=== PATIENT | male | born 1945 | race Caucasian/White ===

== ENCOUNTER 2018-12-24 10:02 | Emergency (ER) | payer OTHER, SELFPAY ==
[2018-12-24] VITALS (21 sets, daily range): BP systolic 124–184; BP diastolic 52–67; PULSE 73–102; RESP 12–21; TEMP 36.7–36.8; O2SAT 98–100
[2018-12-24 10:56] LABS: Abs Immature Grans 0.06 k/cumm (0.0-0.09); Absolute Basophil Count 0.04 k/cumm (0.0-0.2); Basophils % 0.2; Eosinophils % 1.4; HCT 31.2 % (40.0-50.0); HGB 10.3 g/dL (13.5-17.5); Immature Grans % 0.3; Mean Corpuscular Hemoglobin 30.1 pg (27.0-33.0); Mean Corpuscular Volume 91.2 fL (80-95); Mean Platelet Volume 9.3 fL (8.0-11.0); Monocytes % 3.9; Neutrophils % 43.2; Platelet Count 351 x1000/uL (130-400); RBC 3.42 m/cumm (4.50-6.00); RBC Distribution Width 13.2 % (11.8-14.1); White Blood Cell Count 17.54 k/cumm (4.4-10.8)
[2018-12-24 11:00] LABS: Absolute Eosinophil Count 0.25 k/cumm (0.0-0.7); Absolute Lymphocyte Count 8.95 k/cumm (1.2-3.4); Absolute Monocyte Count 0.68 k/cumm (0.11-0.7); Absolute Neutrophil Count 7.58 k/cumm (1.2-6.7)
--- NOTE | 2018-12-24 11:03 | W.ED.GENAD ---
Discharge Plan Disposition Patient Disposition: HOME Condition: Good Discharge Details Chief Complaint: GenMedical Clinical Impression: Left-sided weakness Primary Care Provider: Curtis Chavarria ED Provider: Ashish Clayton Home Meds and New Rx's Prescriptions: New aspirin 325 mg tablet 325 mg PO DAILY Qty: 90 RF: 0 Continued nitroglycerin 0.4 mg tablet, sublingual 0.4 mg SL ONCE Qty: 30 RF: 0 pen needle, diabetic [Lite Touch Insulin Pen [place]] 31 gauge x 5/16 needle .ROUTE .MEDSUPPLY Qty: 100 RF: 5 lancets [Accu-Chek Softclix Lancets] misc .ROUTE .MEDSUPPLY Qty: 200 RF: 4 FreeStyle Lite Strips strip .ROUTE .MEDSUPPLY Qty: 100 RF: 11 blood-glucose meter [FreeStyle [place] Lite] kit .ROUTE .MEDSUPPLY Qty: 1 RF: 0 atorvastatin [Lipitor] 80 MG tablet 80 mg PO DAILY RF: 0 glipizide 5 MG tablet 2.5 mg PO HS RF: 0 lisinopril 10 mg Tablet 10 mg PO DAILY RF: 0 ferrous sulfate 325 MG tablet 0.5 mg PO DAILY RF: 0 Lantus Solostar U-100 Insulin 100 unit/mL (3 mL) insulin pen 34 unit Sub-Q DAILY RF: 0 Discharge Instructions Instructions: Weakness (ED) Additional Instructions: Please take a daily 325 aspirin. Please continue taking your statin medication. Please follow-up immediately with your primary care provider for reassessment and outpatient management. [facility] records to Dr. Alan. If you notice any worsening of your symptoms, or any new symptoms such as vomiting, diarrhea, fever, chills, shortness of breath, chest pain, numbness, weakness, or fainting , please return immediately to the emergency department for reevaluation. Please follow up with your primary care provider as soon as possible for reassessment and reevaluation. As always, it was a pleasure participating in your medical care today. Referrals: Curtis Chavarria [Primary Care Provider] - Medical Decision Making This is a 73-year-old male with a past medical history of CABG, diabetes, high cholesterol and regular tobacco abuse and chronic stable CLL. Patient states that 3 days ago he had left-sided weakness for his upper and lower extremities. The symptoms have since notably resolved although he does admit to some continued very mild left-sided weakness. He denies any history of previous stroke. Of note patient was taken off his metoprolol, statin, and aspirin 1 month ago when they were trying to reassess his multiple medications. He has been restarted on his cholesterol medication 1 week ago, but his metoprolol and aspirin are still being held. Physical exam demonstrates minimal residual left-sided weakness but no other focal neurologic deficits. No evidence of dysdiadochokinesia or dysmetria. The patient ambulates well with his walker. No signs of significant neurologic deficit otherwise. EKG is relatively benign. We will get a CT scan of his head neck to evaluate for any acute fracture or trauma in respect to his fall, as well as to rule out acute stroke or bleed. I do feel that he may have certainly had a mild stroke 3 days ago, and is certainly not a candidate for TPA. Is definitely a candidate for restarting his cholesterol blood pressure and aspirin. We will reassess after workup, and most likely schedule prompt PCP follow-up. 12:29 PM Patient's laboratory workup has returned, heart normalized, white count is 17.54, which is consistent with his CLL, as well as [facility] including [facility] most recent [facility] 1 [facility] ago. Electrolytes are stable. Hemoglobin A1c is notably improved. Troponin is normal. EKG is benign for any signs of STEMI. CT scan has been read by Dr. Granado of radiology, and he states that there is no acute process or stroke, negative CT head and C-spine. The patient continues to look well, we did get him up and ambulate him around the department, and he did well with no signs of ataxia, significant weakness, or fall. I did contact his PCP Dr. Alan and spoke personally with him, we discussed the importance of outpatient follow-up promptly, including echocardiogram and potential carotid ultrasound. With a benign EKG, normal workup, and minimal left-sided weakness but no other significant focal neurologic deficits do not feel that any acute management is indicated at this time. We have recommended to the patient that he continues taking his statin drug, we will restart his aspirin, and have him follow-up closely this week. We discussed red flags which to promptly return the patient understands. Dr. Alan does agree with this plan. I have extensively reviewed the treatment plan and discharge instructions with the patient. I have addressed all patient concerns at this time. The patient was made aware of what symptoms to monitor for that would warrant a return to the emergency department. Discussed the plan with the patient, they demonstrate verbal understanding and agreement with our assessment and plan at this time. EKG 10: 18 Rate 98, intervals normal, sinus rhythm, no significant ST elevations or depressions, no T wave inversions, minimal less than 1 mm Q waves in lead III, no epsilon wave, no delta wave. Benign EKG HPI General Date/Time Provider Initiated Documentation: 12/24/18 10:34. HPI Narrative: This is a 73-year-old male with a past medical history of high cholesterol, CABG, stable CLL diabetes which was poorly controlled, who presents today after being sent for his PCP for evaluation of previous stroke. Of note the patient usually sees the [facility], and he does see Dr. Vickers of cardiology at the [facility], most recent follow-up was 1 week ago. Chip the medical practitioner from [facility] sent the patient over for evaluation after consulting with Dr. Alan. He did contact them and discussed the case with him and the patient. Per the patient and Chip 1 month ago the patient was taken off of all of his meds temporarily by Chip as he was attempting to reassess and appropriately manage the patient as he had had poorly controlled diabetes, incomplete medical compliance, and confusion with current medication regimen. New diabetes medications were started, and the patient's meds were gradually restarted as the patient improved his p.o. intake, and sugar status improved. At that time his Lipitor, aspirin and metoprolol were also paused. One week ago his statin was restarted. He did see cardiology at that time, no additional changes were made. Then 2 days ago on Saturday the patient states that he woke up and had notable left-sided weakness. 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 He states that the weakness was present in his left arm, left leg, with questionable left-sided facial droop. He states that the symptoms gradually improved throughout the day, and he does admit to some mild persistent weakness on the left, but states that it is much better than before. He did have 1 or 2 episodes of falling on Saturday and did hit the left side of his head at that time. Thankfully he was not on any blood thinners. He denies any headache, chest pain, shortness of breath, numbness, tingling, vision changes, vomiting, diarrhea, fever, chills or neck pain. He denies any history of stroke. He has no other complaints or modifying factors at this time. When I contacted the practitioners at [facility] they did request that the patient come in to get a CT scan, be evaluated for atrial fibrillation, and be assessed for symptoms. Related Data Home Medications Medication Instructions Recorded Confirmed atorvastatin [Lipitor] 80 mg PO DAILY 11/19/16 12/24/18 glipizide 2.5 mg PO HS 11/19/16 12/24/18 nitroglycerin 0.4 mg sublingual 0.4 mg SL ONCE #30 tab 09/08/18 12/24/18 tablet lancets #200 each 10/23/18 pen needle, diabetic 31 gauge x #100 each 10/31/18 10/31/1802/19 blood sugar diagnostic strips #100 each 11/07/18 blood-glucose meter kit #1 each 11/07/18 Lantus Solostar U-100 Insulin 34 unit SUB-Q DAILY 12/24/18 12/24/18 aspirin 325 mg PO DAILY #90 tab 12/24/18 ferrous sulfate 0.5 mg PO DAILY 12/24/18 12/24/18 lisinopril 10 mg PO DAILY 12/24/18 12/24/18 Previous Rx's Medication Instructions Recorded nitroglycerin 0.4 mg sublingual 0.4 mg SL ONCE #30 tab 09/08/18 tablet lancets #200 each 10/23/18 pen needle, diabetic 31 gauge x #100 each 10/31/1802/19 blood sugar diagnostic strips #100 each 11/07/18 blood-glucose meter kit #1 each 11/07/18 aspirin 325 mg PO DAILY #90 tab 12/24/18 Allergies Allergy/AdvReac Type Severity Reaction Status Date / Time No Known Allergies Allergy Unverified 09/08/18 13:26 General Stated Complaint: GenMedical CORI: 3 Review of Systems Review of Systems All systems reviewed & are unremarkable except as noted in HPI and below PFSH Social History Do you feel safe in your relationship?: Yes Exam Narrative Exam Narrative: 1.Const: Well-nourished, Well-developed, appearing stated age 2.Eyes: PERRL, no conjunctival injection, and symmetrical lids. 3.ENT: Atraumatic external nose and ears. Moist MM. Neck: Symmetric, trachea midline, No thyromegaly. 4.CVS: +S1/S2, No murmurs or gallops. Peripheral pulses 2+ and equal in all extremities. Brisk capillary refill in all extremities. 5.RESP: Unlabored respiratory effort. Clear to auscultation bilaterally. No wheezes rales or rhonchi 6.GI: Soft, Nontender/Nondistended, No hepatosplenomegaly. No guarding or rebound. 7.MSK: Normocephalic/Atraumatic, Extremities w/o deformity or ttp No cyanosis or clubbing, Normal movement of all extremities 5 out of 5 strength in all extremities both upper and lower extreme 8.Skin: Warm, Dry. No rashes or lesions. 9.Neuro: credit cashier II-XII grossly intact. Sensation grossly intact, no focal neurologic deficits. All 6 cardinal planes of vision are fully intact. No evidence of rotatory or vertical nystagmus. The patient demonstrated a normal [id number], good dexterity. There was no evidence of dysdiadochokinesia. Patient was able to ambulate without significant difficulty using his walker. There was no wide-based gait. [id number] normal on testing. Sensation was intact bilaterally. Although the patient had 5 out of 5 strength for his upper and lower extremities including plantar and dorsiflexion of his feet and dorsiflexion of his great toes bilaterally, there was some slight strength asymmetry, with minimal detectable weakness for the left upper and left lower extremities. Patient was able to verbalize butter cup with no slurring, or miss pronunciation. CN 2-12 tested and intact, patient is able to hold bilateral arms up for 5 seconds and there is no pronator drift, patient also holds legs up for 10 seconds bilaterally without any drop, sensation intact to light touch in hands and feet bilaterally. 10.Psych: (AAO) x3. Appropriate mood and affect Course Vital Signs Temperature 36.7 C 12/24/18 10:09 Pulse 101 H 12/24/18 10:09 Respiratory Rate 12 12/24/18 10:09 Blood Pressure 184/67 H 12/24/18 10:09 Temperature 36.7 C 12/24/18 10:09 Temperature Source Temporal Artery Scan 12/24/18 10:09 Pulse 101 H 12/24/18 10:09 Respiratory Rate 12 12/24/18 10:09 Blood Pressure 184/67 H 12/24/18 10:09 Blood Pressure Position Sitting 12/24/18 10:09 Oxygen Delivery Method Room Air 12/24/18 10:09 Oxygen Flow Rate 0 12/24/18 10:09 Pain Level 0 12/24/18 10:09
[2018-12-24 11:07] LABS: ALT 11 U/L (12-78); AST 10 U/L (15-37); Albumin 3.4 g/dL (3.4-5.0); Alkaline Phosphatase 129 U/L (46-116); Anion Gap 9.2 mmol/L (3-11); BUN 16 mg/dL (7-18); Bilirubin, Total 0.3 mg/dL (0.2-1.0); CO2 28.8 mmol/L (21.0-32.0); CREATININE 0.78 mg/dL (0.70-1.30); Calcium 9.2 mg/dL (8.5-10.1); Chloride 100 mmol/L (98-107); Glucose 298 mg/dL (70-100); Potassium 3.8 mmol/L (3.5-5.1); Sodium 138 mmol/L (136-145); Total Protein 7.4 g/dL (6.4-8.2)
--- NOTE | 2018-12-24 11:09 | ED.GENADUL_ITS ---
Discharge Plan Disposition Patient Disposition: HOME Condition: Good Discharge Details Chief Complaint: GenMedical Clinical Impression: Left-sided weakness Primary Care Provider: Curtis Chavarria ED Provider: Ashish Clayton Home Meds and New Rx's Prescriptions: New aspirin 325 mg tablet 325 mg PO DAILY Qty: 90 RF: 0 Continued nitroglycerin 0.4 mg tablet, sublingual 0.4 mg SL ONCE Qty: 30 RF: 0 pen needle, diabetic [Lite Touch Insulin Pen [place]] 31 gauge x 5/16 needle .ROUTE .MEDSUPPLY Qty: 100 RF: 5 lancets [Accu-Chek Softclix Lancets] misc .ROUTE .MEDSUPPLY Qty: 200 RF: 4 FreeStyle Lite Strips strip .ROUTE .MEDSUPPLY Qty: 100 RF: 11 blood-glucose meter [FreeStyle [place] Lite] kit .ROUTE .MEDSUPPLY Qty: 1 RF: 0 atorvastatin [Lipitor] 80 MG tablet 80 mg PO DAILY RF: 0 glipizide 5 MG tablet 2.5 mg PO HS RF: 0 lisinopril 10 mg Tablet 10 mg PO DAILY RF: 0 ferrous sulfate 325 MG tablet 0.5 mg PO DAILY RF: 0 Lantus Solostar U-100 Insulin 100 unit/mL (3 mL) insulin pen 34 unit Sub-Q DAILY RF: 0 Discharge Instructions Instructions: Weakness (ED) Additional Instructions: Please take a daily 325 aspirin. Please continue taking your statin medication. Please follow-up immediately with your primary care provider for reassessment and outpatient management. [facility] digital records to Dr. Alan. If you notice any worsening of your symptoms, or any new symptoms such as vomiting, diarrhea, fever, chills, shortness of breath, chest pain, numbness, weakness, or fainting , please return immediately to the emergency department for reevaluation. Please follow up with your primary care provider as soon as possible for reassessment and reevaluation. As always, it was a pleasure participating in your medical care today. Referrals: Curtis Chavarria [Primary Care Provider] - Medical Decision Making This is a 73-year-old male with a past medical history of CABG, diabetes, high cholesterol and regular tobacco abuse and chronic stable CLL. Patient states that 3 days ago he had left-sided weakness for his upper and lower extremities. The symptoms have since notably resolved although he does admit to some continued very mild left-sided weakness. He denies any history of previous stroke. Of note patient was taken off his metoprolol, statin, and aspirin 1 month ago when they were trying to reassess his multiple medications. He has been restarted on his cholesterol medication 1 week ago, but his metoprolol and aspirin are still being held. Physical exam demonstrates minimal residual left-sided weakness but no other focal neurologic deficits. No evidence of dysdiadochokinesia or dysmetria. The patient ambulates well with his walker. No signs of significant neurologic deficit otherwise. EKG is relatively benign. We will get a CT scan of his head neck to evaluate for any acute fracture or trauma in respect to his fall, as well as to rule out acute stroke or bleed. I do feel that he may have certainly had a mild stroke 3 days ago, and is certainly not a candidate for TPA. Is definitely a candidate for restarting his cholesterol blood pressure and aspirin. We will reassess after workup, and most likely schedule prompt PCP follow-up. 12:29 PM Patient's laboratory workup has returned, heart normalized, white count is 17.54, which is consistent with his CLL, as well as [facility] most [facility] 1 [facility]. Electrolytes are stable. Hemoglobin A1c is notably improved. Troponin is normal. EKG is benign for any signs of STEMI. CT scan has been read by Dr. Granado of radiology, and he states that there is no acute process or stroke, negative CT head and C-spine. The patient continues to look well, we did get him up and ambulate him around the department, and he did well with no signs of ataxia, significant weakness, or fall. I did contact his PCP Dr. Alan and spoke personally with him, we discussed the importance of outpatient follow-up promptly, including echocardiogram and potential carotid ultrasound. With a benign EKG, normal workup, and minimal left-sided weakness but no other significant focal neurologic deficits do not feel that any acute management is indicated at this time. We have recommended to the patient that he continues taking his statin drug, we will restart his aspirin, and have him follow-up closely this week. We discussed red flags which to promptly return the patient understands. Dr. Daisha kim does agree with this plan. I have extensively reviewed the treatment plan and discharge instructions with the patient. I have addressed all patient concerns at this time. The patient was made aware of what symptoms to monitor for that would warrant a return to the emergency department. Discussed the plan with the patient, they demonstrate verbal understanding and agreement with our assessment and plan at this time. EKG 10: 18 Rate 98, intervals normal, sinus rhythm, no significant ST elevations or depressions, no T wave inversions, minimal less than 1 mm Q waves in lead III, no epsilon wave, no delta wave. Benign EKG HPI General Date/Time Provider Initiated Documentation: 12/24/18 10:34 . HPI Narrative: This is a 73-year-old male with a past medical history of high cholesterol, CABG, stable CLL diabetes which was poorly controlled, who presents today after being sent for his PCP for evaluation of previous stroke. Of note the patient usually sees the [facility], and he does see Dr. Vickers of cardiology at the [facility], most recent follow-up was 1 week ago. Chip the medical practitioner from [facility] sent the patient over for evaluation after consulting with Dr. Alan. He did contact them and discussed the case with him and the patient. Per the patient and Chip 1 month ago the patient was taken off of all of his meds temporarily by Chip as he was attempting to reassess and appropriately manage the patient as he had had poorly controlled diabetes, incomplete medical compliance, and confusion with current medication regimen. New diabetes medications were started, and the patient's meds were gradually restarted as the patient improved his p.o. intake, and sugar status improved. At that time his Lipitor, aspirin and metoprolol were also paused. One week ago his statin was restarted. He did see cardiology at that time, no additional changes were made. Then 2 days ago on Saturday the patient states that he woke up and had notable left-sided weakness. 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 He states that the weakness was present in his left arm, left leg, with questionable left-sided facial droop. He states that the symptoms gradually improved throughout the day, and he does admit to some mild persistent weakness on the left, but states that it is much better than before. He did have 1 or 2 episodes of falling on Saturday and did hit the left side of his head at that time. Thankfully he was not on any blood thinners. He denies any headache, chest pain, shortness of breath, numbness, tingling, vision changes, vomiting, diarrhea, fever, chills or neck pain. He denies any history of stroke. He has no other complaints or modifying factors at this time. When I contacted the practitioners at [facility] they did request that the patient come in to get a CT scan, be evaluated for atrial fibrillation, and be assessed for symptoms. Related Data Home Medications Medication Instructions Recorded Confirmed atorvastatin [Lipitor] 80 mg PO DAILY 11/19/16 12/24/18 glipizide 2.5 mg PO HS 11/19/16 12/24/18 nitroglycerin 0.4 mg sublingual 0.4 mg SL ONCE #30 tab 09/08/18 12/24/18 tablet lancets #200 each 10/23/18 pen needle, diabetic 31 gauge x #100 each 10/31/18 10/31/1802/19 blood sugar diagnostic strips #100 each 11/07/18 blood-glucose meter kit #1 each 11/07/18 Lantus Solostar U-100 Insulin 34 unit SUB-Q DAILY 12/24/18 12/24/18 aspirin 325 mg PO DAILY #90 tab 12/24/18 ferrous sulfate 0.5 mg PO DAILY 12/24/18 12/24/18 lisinopril 10 mg PO DAILY 12/24/18 12/24/18 Previous Rx's Medication Instructions Recorded nitroglycerin 0.4 mg sublingual 0.4 mg SL ONCE #30 tab 09/08/18 tablet lancets #200 each 10/23/18 pen needle, diabetic 31 gauge x #100 each 10/31/1802/19 blood sugar diagnostic strips #100 each 11/07/18 blood-glucose meter kit #1 each 11/07/18 aspirin 325 mg PO DAILY #90 tab 12/24/18 Allergies Allergy/AdvReac Type Severity Reaction Status Date / Time No Known Allergies Allergy Unverified 09/08/18 13:26 General Stated Complaint: GenMedical CORI: 3 Review of Systems Review of Systems All systems reviewed & are unremarkable except as noted in HPI and below PFSH Social History Do you feel safe in your relationship?: Yes Exam Narrative Exam Narrative: 1.Const: Well-nourished, Well-developed, appearing stated age 2.Eyes: PERRL, no conjunctival injection, and symmetrical lids. 3.ENT: Atraumatic external nose and ears. Moist MM. Neck: Symmetric, trachea midline, No thyromegaly. 4.CVS: +S1/S2, No murmurs or gallops. Peripheral pulses 2+ and equal in all extremities. Brisk capillary refill in all extremities. 5.RESP: Unlabored respiratory effort. Clear to auscultation bilaterally. No wheezes rales or rhonchi 6.GI: Soft, Nontender/Nondistended, No hepatosplenomegaly. No guarding or rebound. 7.MSK: Normocephalic/Atraumatic, Extremities w/o deformity or ttp No cyanosis or clubbing, Normal movement of all extremities 5 out of 5 strength in all extremities both upper and lower extreme 8.Skin: Warm, Dry. No rashes or lesions. 9.Neuro: patient access registrar II-XII grossly intact. Sensation grossly intact, no focal neurologic deficits. All 6 cardinal planes of vision are fully intact. No evidence of rotatory or vertical nystagmus. The patient demonstrated a normal [id number], good dexterity. There was no evidence of dysdiadochokinesia. Patient was able to ambulate without significant difficulty using his walker. There was no wide-based gait. [id number] normal on testing. Sensation was intact bilaterally. Although the patient had 5 out of 5 strength for his upper and lower extremities including plantar and dorsiflexion of his feet and dorsiflexion of his great toes bilaterally, there was some slight strength asy mmetry, with minimal detectable weakness for the left upper and left lower extremities. Patient was able to verbalize butter cup with no slurring, or miss pronunciation. CN 2-12 tested and intact, patient is able to hold bilateral arms up for 5 seconds and there is no pronator drift, patient also holds legs up for 10 seconds bilaterally without any drop, sensation intact to light touch in hands and feet bilaterally. 10.Psych: (AAO) x3. Appropriate mood and affect Course Vital Signs Temperature 36.7 C 12/24/18 10:09 Pulse 101 H 12/24/18 10:09 Respiratory Rate 12 12/24/18 10:09 Blood Pressure 184/67 H 12/24/18 10:09 Temperature 36.7 C 12/24/18 10:09 Temperature Source Temporal Artery Scan 12/24/18 10:09 Pulse 101 H 12/24/18 10:09 Respiratory Rate 12 12/24/18 10:09 Blood Pressure 184/67 H 12/24/18 10:09 Blood Pressure Position Sitting 12/24/18 10:09 Oxygen Delivery Method Room Air 12/24/18 10:09 Oxygen Flow Rate 0 12/24/18 10:09 Pain Level 0 12/24/18 10:09
[2018-12-24 11:15] LABS: Polychromasia Present
[2018-12-24 11:17] LABS: Hemoglobin A1C 8.6 % (4.5-6.2)
[2018-12-24] MEDS: Normal Saline 1,000 ML 1000 ML IV (11:30)
--- NOTE | 2018-12-24 11:38 | DI.CT_ITS ---
SYMPTOMS/DIAGNOSIS: STROKE LIKE SYMPTOMS 3 DAYS AGO, FALL LT FACE CT BRAIN: Noncontrast examination. Comparison 08/12/17. The ventricles and sulci are consistent with the patient's age. No intracranial hemorrhage, infarct, midline shift or mass effect is identified. The ventricles are intact. The basilar cisterns are patent. The visualized paranasal sinuses are clear. The mastoid air cells are well pneumatized. The calvarium is intact. IMPRESSION: No acute intracranial process. CT SCAN OF THE CERVICAL SPINE: Multiple contiguous axial images of the cervical spine were obtained. Sagittal and coronal reformatted images were evaluated on the Siemens workstation. No acute fractures or subluxations of the cervical spine are seen. Mild to moderate degenerative changes are present throughout the cervical spine. The soft tissues are unremarkable. IMPRESSION: No acute fractures or subluxations in the cervical spine. The findings were discussed with the emergency department on the date of the examination.
== END 2018-12-24 12:50 | disposition home or self-care (01) ==
PROVIDERS: Emergency Provider Student in an Organized Health Care Education/Training Program; PCP Family Medicine
DX: G81.94 Hemiplegia, unspecified affecting left nondominant side (principal); R29.6 Repeated falls; S09.90XA Unspecified injury of head, initial encounter; W18.30XA Fall on same level, unspecified, initial encounter; E11.9 Type 2 diabetes mellitus without complications; Z79.84 Long term (current) use of oral hypoglycemic drugs
CPT/HCPCS: 36415; 80053; 93005; 96360; 99285; 70450; 72125; 83036; 85025; 93010; 99284

== ENCOUNTER 2019-01-02 01:42 | Outpatient (CLI) | payer OTHER, SELFPAY ==
--- NOTE | 2019-01-02 14:50 | DI.US_ITS ---
SYMPTOM/DIAGNOSIS: MICTURITION SYNCOPE, R55, WEAKNESS, R53.1, STROKE, APHASIA,NUMBNESS, TINGLING, DIZZINESS, IMBALANCE, CONFUSION, SMOKER, DIABETES, HYPERTENSION, H/O CA IN 2013 BILATERAL DUPLEX CAROTID ULTRASOUND: Duplex evaluation of the carotid circulation was performed according to the usual protocol. There is moderate visible atheromatous plaque in common and internal carotid arteries bilaterally. On the right, there is flow velocity elevation in the proximal internal carotid artery consistent with 50-60% luminal diameter stenosis. On the left, there is flow velocity elevation consistent with 50-60% diameter stenosis of the proximal mid and distal internal carotid artery. There is bilateral antegrade vertebral flow. IMPRESSION: Findings consistent with bilateral, 50-60% luminal diameter stenosis of the internal carotid arteries.
== END 2019-01-02 02:02 ==
PROVIDERS: PCP Family Medicine; Visit Provider Family Medicine
DX: R55 Syncope and collapse (principal); R53.1 Weakness; I69.320 Aphasia following cerebral infarction; I65.23 Occlusion and stenosis of bilateral carotid arteries
CPT/HCPCS: 93880

== ENCOUNTER 2019-01-14 00:21 | Outpatient (CLI) | payer OTHER, MEDICARE, SELFPAY ==
--- NOTE | 2019-01-14 07:30 | MERGE_ITS ---
*[facility]* *[facility]* [address] [place] [address] Date of study: 01/14/2019 Transthoracic Echocardiography M-mode, complete 2D, complete spectral Doppler, and color Doppler *STUDY CONCLUSIONS* Summary: 1. Left ventricle: The cavity size was normal. Wall thickness was increased in a pattern of mild LVH. Systolic function was normal. The estimated ejection fraction was 60-65%. Wall motion was normal; there were no regional wall motion abnormalities. Findings consistent with diastolic dysfunction. Doppler parameters are consistent with high ventricular filling pressure. Average of medial and lateral annulus E velocity: 0.083m/sec. Ratio of mitral valve peak E velocity to average of medial and lateral annulus peak E velocity: 15. 2. Aortic valve: There was mild regurgitation. 3. Mitral valve: Mildly calcified annulus. There was mild regurgitation. 4. Left atrium: The atrium was mildly to moderately dilated. Volume/bsa ES (2-p Simpsons): 39ml/m^2. 5. Right ventricle: The cavity size was normal. Wall thickness was normal. Systolic function was normal. 6. Pulmonary arteries: Pulmonary systolic pressure was increased, in the range of 40mm Hg to 45mm Hg. *PATIENT PRESENTATION* Height: 162.6cm ((64in) ) S/D Pressure: 153 / 61 Weight: 53.5kg ((117.8lb) ) BSA: 1.55m^2 Test start time: 07:35 AM. Test stop time: 08:40 AM. PERFORMING Unknown PERFORMING [facility] BILINGUAL SECRETARY Candace Lester RT (R)(CT), CS ORDERING Curtis Chavarria REFERRING Curtis Chavarria *PROCEDURE DATA* Procedure information: The patient was identified by two identifiers. This study was interpreted by [facility]. Pertinent images and digital data are archived for permanent storage and are available for subsequent review. No prior study was available for comparison. Study status: Routine. Transthoracic echocardiography. M-mode, complete 2D, complete spectral Doppler, and color Doppler. A Transthoracic Echocardiogram was performed. Scanning was performed from the parasternal, apical, subcostal, and suprasternal notch acoustic windows. Images were obtained using an [id number] cardiac ultrasound machine. Image quality was adequate. Study completion: The patient tolerated the procedure well. There were no complications. History: PMH: Fever. left sided weakness r50.9 r53.1. *CARDIAC ANATOMY* Left ventricle: The cavity size was normal. Wall thickness was increased in a pattern of mild LVH. There was a false tendon within the ventricle. Systolic function was normal. The estimated ejection fraction was 60-65%. Wall motion was normal; there were no regional wall motion abnormalities. Findings consistent with diastolic dysfunction. Doppler parameters are consistent with high ventricular filling pressure. Aortic valve: Trileaflet; mildly thickened, mildly calcified leaflets. Mobility was not restricted. Doppler: Transvalvular velocity was within the normal range. There was no stenosis. There was mild regurgitation. VTI ratio of LVOT to aortic valve: 0.5. Valve area (VTI): 1.5cm^2. Indexed valve area (VTI): 1cm^2/m^2. Peak velocity ratio of LVOT to aortic valve: 0.53. Valve area (Vmax): 1.6cm^2. Indexed valve area (Vmax): 1.1cm^2/m^2. Mean velocity ratio of LVOT to aortic valve: 0.46. Valve area (Vmean): 1.4cm^2. Indexed valve area (Vmean): 0.9cm^2/m^2. Mean gradient (S): 5.5mm Hg. Peak gradient (S): 9.9mm Hg. Aorta: Aortic root: The aortic root was normal in size. Ascending aorta: The ascending aorta was normal in size. Mitral valve: Mildly calcified annulus. Mobility was not restricted. Doppler: Transvalvular velocity was within the normal range. There was no evidence for stenosis. There was mild regurgitation. Valve area by pressure half-time: 4.6cm^2. Indexed valve area by pressure half-time: 3cm^2/m^2. Peak gradient (D): 6mm Hg. Left atrium: The atrium was mildly to moderately dilated. Right ventricle: The cavity size was normal. Wall thickness was normal. Systolic function was normal. Pulmonic valve: The pulmonary valve appears to be grossly normal. Doppler: Transvalvular velocity was within the normal range. There was no evidence for stenosis. There was no significant regurgitation. Peak gradient (S): 4.5mm Hg. Tricuspid valve: Structurally normal valve. Doppler: Transvalvular velocity was within the normal range. There was no evidence for stenosis. There was mild regurgitation. Pulmonary artery: Pulmonary systolic pressure was increased, in the range of 40mm Hg to 45mm Hg. Right atrium: The atrium was normal in size. Pericardium: There was no pericardial effusion. Systemic veins: Inferior vena cava: Well visualized. The vessel was patent and normal in size. The respirophasic diameter changes were in the normal range (greater than or equal to 50%). Baseline ECG: Normal sinus rhythm. Measurements Left ventricle Value Reference LV ID, ED, PLAX 4.7 cm 3.5 - 6.0 LV ID, ES, PLAX 3.3 cm 2.1 - 4.0 LV PW thickness, ED, PLAX 1.1 cm LV end-diastolic volume, 1-p A2C 106 ml LV ejection fraction, 1-p A2C 71 % LV end-diastolic volume, 1-p A4C 73 ml LV ejection fraction, 1-p A4C 67 % LV e', lateral 0.098 m/sec LV E/e', lateral 13 LV e', medial 0.068 m/sec LV E/e', medial 18 LV e', average 0.083 m/sec LV E/e', average 15 Ventricular septum Value Reference IVS thickness, ED, PLAX 1.3 cm LVOT Value Reference LVOT ID, A-P 2.0 cm LVOT area 3.1 cm^2 LVOT peak velocity, S 0.84 m/sec LVOT mean velocity, S 0.51 m/sec LVOT VTI, S 21.4 cm LVOT peak gradient, S 2.8 mm Hg LVOT mean gradient, S 1.3 mm Hg Stroke volume (SV), LVOT DP 66 ml Stroke index (SV/bsa), LVOT DP 43 ml/m^2 Aortic valve Value Reference Aortic valve peak velocity, S 1.6 m/sec Aortic valve mean velocity, S 1.11 m/sec Aortic valve VTI, S 43.0 cm Aortic mean gradient, S 5.5 mm Hg Aortic peak gradient, S 9.9 mm Hg VTI ratio, LVOT/AV 0.5 Aortic valve area, VTI 1.5 cm^2 Velocity ratio, peak, LVOT/AV 0.53 Aortic valve area, peak velocity 1.6 cm^2 Velocity ratio, mean, LVOT/AV 0.46 Aortic valve area, mean velocity 1.4 cm^2 Aortic valve area/bsa, mean velocity 0.9 cm^2/m^2 Aorta Value Reference Aortic root ID, ED 2.8 cm Ascending aorta ID, A-P, S 3.0 cm RVOT Value Reference RVOT VTI, S 18.8 cm Left atrium Value Reference LA ID, A-P, ES 3.4 cm LA ID/bsa, A-P 2.2 cm/m^2 <=2.2 LA area, ES, A4C 20.7 cm^2 8.8 - 23.4 LA area, ES, A2C 19 cm^2 LA volume/bsa, ES, 1-p A4C 47 ml/m^2 LA volume, ES, 2-p 61 ml LA volume/bsa, ES, 2-p 39 ml/m^2 LA/aortic root ratio 1.19 Mitral valve Value Reference Mitral E-wave peak velocity 1.23 m/sec Mitral A-wave peak velocity 0.74 m/sec Mitral deceleration time 165 ms 150 - 230 Mitral pressure half-time 48 ms Mitral peak gradient, D 6 mm Hg Mitral E/A ratio, peak 1.67 Mitral valve area, PHT, DP 4.6 cm^2 Pulmonary veins Value Reference Pulmonary vein peak velocity, S 0.61 m/sec Pulmonary vein peak velocity, D 0.96 m/sec Pulmonary vein velocity ratio, peak, 0.64 S/D Tricuspid valve Value Reference Tricuspid regurg peak velocity 3.3 m/sec Tricuspid peak RV-RA gradient 44.9 mm Hg Right atrium Value Reference RA area, ES, A4C 11.4 cm^2 8.3 - 19.5 Pulmonic valve Value Reference Pulmonic peak gradient, S 4.5 mm Hg Legend: (L) and (H) estela values outside specified reference range. I have personally reviewed the images and have reviewed and edited the reported findings. Electronically signed by Sanket English 01/14/2019 10:01
== END 2019-01-14 00:41 ==
PROVIDERS: PCP Family Medicine; Visit Provider Family Medicine
DX: R50.9 Fever, unspecified (principal); R53.1 Weakness; I50.30 Unspecified diastolic (congestive) heart failure; I08.0 Rheumatic disorders of both mitral and aortic valves
CPT/HCPCS: 93306

== ENCOUNTER 2019-01-15 01:08 | Outpatient (CLI) | payer OTHER, MEDICARE, SELFPAY ==
--- NOTE | 2019-02-03 11:07 | ZIOP_ITS ---
DATE OF DICTATION: February 03, 2019 STUDY INDICATION: Weakness. REQUESTING PROVIDER: Curtis Chavarria M.D. FINDINGS: The patient was monitored for twelve days and six hours. The predominant underlying rhythm was sinus rhythm. Average heart rate in sinus rhythm 70 bpm, range 49-118 bpm. There was rare ectopy. There was one ventricular run lasting 9 beats with an average heart rate of 131 bpm. There were six atrial runs, average heart rate 105 bpm, range 75-136 bpm. The longest episode lasted 19 beats with an average heart rate of 102 bpm. There was one episode of an idioventricular rhythm at 68 beats lasting 8 beats, occurring at 4:24 a.m. There were no pauses greater than 3 seconds. There was no higher-degree heart block. There were no patient events. FINAL INTERPRETATION: Minor atrial and ventricular arrhythmias, asymptomatic.
== END 2019-01-15 01:28 ==
PROVIDERS: PCP Family Medicine; Visit Provider Family Medicine
DX: R53.1 Weakness (principal); I49.1 Atrial premature depolarization; I49.3 Ventricular premature depolarization
CPT/HCPCS: 0296T

== ENCOUNTER 2019-01-27 14:31 | Emergency (ER) | payer OTHER, SELFPAY ==
[2019-01-27] VITALS (94 sets, daily range): BP systolic 95–146; BP diastolic 34–64; PULSE 59–78; RESP 11–36; TEMP 36.7–37.5; O2SAT 93–100
[2019-01-27 15:07] LABS: Abs Immature Grans 0.03 k/cumm (0.0-0.09); Mean Corp. HGB Concentration 33.3 g/dL (32.0-36.0); Mean Corpuscular Hemoglobin 31.9 pg (27.0-33.0); Mean Corpuscular Volume 95.7 fL (80-95); Mean Platelet Volume 9.5 fL (8.0-11.0); Platelet Count 321 x1000/uL (130-400); RBC 2.07 m/cumm (4.50-6.00); RBC Distribution Width 17.2 % (11.8-14.1); White Blood Cell Count 12.51 k/cumm (4.4-10.8)
--- NOTE | 2019-01-27 15:11 | ED.GENADUL_ITS ---
Discharge Plan Disposition Patient Disposition: AGAINST MEDICAL ADVICE Condition: Serious Discharge Details Chief Complaint: SOB Clinical Impression: Anemia, Acute GI bleeding, Breath, shortness Primary Care Provider: Curtis Chavarria ED Provider: Catie Degroot Home Meds and New Rx's Prescriptions: Continued nitroglycerin 0.4 mg tablet, sublingual 0.4 mg SL ONCE Qty: 30 RF: 0 pen needle, diabetic [Lite Touch Insulin Pen [place]] 31 gauge x 5/16 needle .ROUTE .MEDSUPPLY Qty: 100 RF: 5 lancets [Accu-Chek Softclix Lancets] misc .ROUTE .MEDSUPPLY Qty: 200 RF: 4 FreeStyle Lite Strips strip .ROUTE .MEDSUPPLY Qty: 100 RF: 11 blood-glucose meter [FreeStyle Comins Lite] kit .ROUTE .MEDSUPPLY Qty: 1 RF: 0 atorvastatin [Lipitor] 80 MG tablet 80 mg PO DAILY RF: 0 glipizide 5 mg tablet 2.5 mg PO HS PRN (Reason: t-1 1700) RF: 0 Lantus Solostar U-100 Insulin 100 unit/mL (3 mL) insulin pen 34 unit Sub-Q DAILY RF: 0 ferrous sulfate 325 mg (65 mg iron) tablet See Patient Comments PO DAILY RF: 0 Discontinued aspirin [Adult Aspirin Regimen] 81 mg tablet,delayed release (DR/EC) 81 mg PO DAILY RF: 0 No Action polyethylene glycol 3350 17 gram/dose powder 238 g PO ONCE Qty: 238 RF: 0 bisacodyl [Dulcolax (bisacodyl)] 5 mg tablet,delayed release (DR/EC) 5 mg PO ONCE Qty: 4 RF: 0 Discharge Instructions Instructions: Gastrointestinal Bleeding (ED), Dyspnea (ED), Anemia (ED) Additional Instructions: You are leaving AGAINST MEDICAL ADVICE. Going home at this time does which are at risk for your condition worsening with possible long-term effects of . Please contact her primary care tomorrow morning to schedule follow-up as soon as possible for reevaluation. Should you change your mind and wish for further care please return to the emergency department at any time. Stop taking aspirin Referrals: Curtis Chavarria [Primary Care Provider] - Discharge Data Discharge Date/Time-TO BE ENTERED AT DEPARTURE: 01/27/19 22:48 Medical Decision Making Patient is a 73 year old male, brought in via EMS after evaluation by his PCP for cc of exertional dyspnea. PCP was phoned ahead and was concerned for possible carbon monoxide poisoning. Patient has history of CAD, s/p CABG 2011, CLL not currently requiring treatment, DM, hyperlipidemia, HTN, PVD, peripheral neuropathy, CVA. Patient endorses >1 month of exertional episodes of dizziness and dyspnea. Symptpoms began after CVA which affected his left side. Has been working with PT with good improvement of his self reported hemiparesis. Reports that once he rests symptoms takes about 10 minutes to improve. Feels that symptoms improve when in fresh air. Denies and chest pain. Reports light cough over the past week. Currently asymptomatic. Was initially tachypnic at 33, he is speaking in full sentences and is now breathing at a normal rate. O2 100% with HR in the 70s. He is cachectic appearing. No edema noted. Lungs clear. Concerned for cardiac etiology vs. pulmonary source. Will also assess for anemia, diaphragmatic injury from recent CVA or other etiology. Will obtain cxr and baseline labs. Carbon monoxide 0 at time of arrival. EKG reviewed by Dr. Ricks Contacted by lab, hemoglobin 6.6. Patient has history of anemia. Hemoglobin 10.3 last month, has been a low as 7 previously. No known source of bleeding. Dneies hematuria, melena. Not anticoagulated. Patient is getting XR at this time, will discuss transfusion once he returns and preform rectal exam. No beds are available here, will plan to seek out bed at [facility] where patient [facility] receives care. Rectal exam was heme positive. I discussed the blood results with the patient. He is unaware of any rectal bleeding. No previous abdominal surgeries. He does have a external hemorrhoid that does not appear thrombosed or actively bleeding. No abdominal pain on exam. No previous familial histories of colon cancer. Patient I discussed risk/benefits of transfusion at length. He voiced understanding and wishes to proceed. With his history of cardiac disease, we will limit transfusions 1 unit at this time. Patient will need radiated blood products. [facility] typically sees the [facility], they do not currently have beds for admission. Discussed admission with patient and his . Advised he will need further evaluation for GI bleed and possibly another unit of blood. Given his cardiac history, I am hesitant to give multiple units at the same time. Dscussed this with Dr. Ricks who agreed with plan for one unit at this time with reevaluation after. Bed now available here, will consult with hospitalist, patient still awaiting blood products. Patient was evaluated by hospitalist once it was determined that a bed is now available. However, patient is going back and forth if he wants to be admitted or not. He is actually not wanting to stay even for the blood products at this point although the irradiated blood products are now available. Contacted computational theory scientist provider for his PCP. Discussed the patient wanting to elope and the findings on todays workup. They are concerned about the patient leaving, as am I, but will see the patient tomorrow and arrange for outpatient transfusion tomorrow if needed. Patient spoke with his who is able to talk him into staying for the blood products. Patient is declining admission. Discussed with him the risks associated with this and advised that he should be admitted for further observation and further treatment. After consulting with Dr. Ricks initially, I only ordered 1 unit of blood in hopes that the patient would be able to continued to be monitored particularly given his cardiac history. Patient is now agreeing to staying for blood transfusion. We discussed the risks and benefits of this at length. Patient did sign consent for transfusion. Type and screen was completed and patient will receive irradiated blood products as he has history of CLL. After receiving 1 unit of PRBCs, patient is requesting discharge. I again discussed with him that he is leaving AGAINST MEDICAL ADVICE at this time as he should continue to have monitoring, further evaluation for his anemia and likely further blood products. He again declines and is requesting discharge home. Patient is leaving AGAINST MEDICAL ADVICE. Patient has competence to make this decision. His has come to pick him up. He will contact primary care tomorrow for prompt follow-up and will seek care urgently once again with any new or worsening symptoms. I did discuss with him that he may return at any time for further care. HPI General Mode of arrival: EMS . Date/Time Provider Initiated Documentation: 01/27/19 14:35 . Limitations to Documentation: no limitations . Information obtained by: patient, family and RN notes reviewed . History of Present Illness 73 year old M presents to the emergency department with the chief complaint of SOB, described as severe, Patient started experiencing this month(s) and it has been intermittent. Immobilization improves symptom(s), Movement worsens symptoms . Patient notes cough, shortness of breath and weakness; denies chest pain, diaphoresis, fever/chills, headaches, loss of appetite, nausea/vomiting and syncope. Patient did receive the following treatments prior to arrival, none Related Data Home Medications Medication Instructions Recorded Confirmed atorvastatin [Lipitor] 80 mg PO DAILY 11/19/16 01/30/19 nitroglycerin 0.4 mg sublingual 0.4 mg SL ONCE #30 tab 09/08/18 01/30/19 tablet lancets #200 each 10/23/18 01/30/19 pen needle, diabetic 31 gauge x #100 each 10/31/18 01/30/1902/19 blood sugar diagnostic strips #100 each 11/07/18 01/30/19 blood-glucose meter kit #1 each 11/07/18 01/30/19 Lantus Solostar U-100 Insulin 34 unit SUB-Q DAILY 12/24/18 01/30/19 glipizide 5 mg tablet 2.5 mg PO HS PRN 12/30/18 01/30/19 ferrous sulfate 325 mg (65 mg See Rx Instructions PO DAILY tab 01/13/19 01/30/19 iron) tablet bisacodyl 5 mg tablet,delayed 5 mg PO ONCE #4 tab 01/30/19 01/30/19 release polyethylene glycol 3350 17 238 g PO ONCE #238 gm 01/30/19 01/30/19 gram/dose oral powder Previous Rx's Medication Instructions Recorded nitroglycerin 0.4 mg sublingual 0.4 mg SL ONCE #30 tab 09/08/18 tablet lancets #200 each 10/23/18 pen needle, diabetic 31 gauge x #100 each 10/31/1802/19 blood sugar diagnostic strips #100 each 11/07/18 blood-glucose meter kit #1 each 11/07/18 bisacodyl 5 mg tablet,delayed 5 mg PO ONCE #4 tab 01/30/19 release polyethylene glycol 3350 17 238 g PO ONCE #238 gm 01/30/19 gram/dose oral powder Allergies Allergy/AdvReac Type Severity Reaction Status Date / Time No Known Allergies Allergy Verified 01/30/19 11:07 General CORI: 3 Review of Systems Constitutional Reports as per HPI, Denies chills, Reports fatigue, Denies fever(s), Denies headache(s), Denies lethargy and Denies poor appetite Eyes Denies change in vision ENT Denies bleeding gums, Reports dizziness and Denies headache(s) Cardiovascular Reports as per HPI, Denies chest pain, Denies chest pain at rest, Denies chest pain with activity, Denies rapid heart rate, Denies radiating jaw, neck or arm pain, Denies palpitations, Reports dyspnea and Reports dyspnea on exertion Respiratory Reports as per HPI, Denies chest congestion, Denies cough, Denies hemoptysis, Denies pain on inspiration, Denies pain with cough, Reports dyspnea, Reports dyspnea on exertion and Denies wheezing Gastrointestinal Reports as per HPI, Denies abdominal pain, Denies melena, Denies change in stool character, Denies coffee ground emesis, Denies diarrhea, Denies nausea and Denies vomiting Genitourinary Denies system reviewed and no additional complaints, except as docu (denies change in urinary habits), Denies hematuria and Denies difficulty urinating Musculoskeletal Reports as per HPI and Denies back pain Integumentary/Breasts Reports as per HPI and Denies rash Neurologic Reports as per HPI, Reports dizziness and Denies headache(s) Endocrine Reports fatigue and Denies palpitations Allergic/Immunologic Denies wheezing PFSH Medical History Stroke (Chronic) Bilateral carotid artery disease (Chronic) Diabetes mellitus (Chronic) Counseling on health promotion and disease prevention (Acute) Weight loss (Acute 09/09/17) Type 2 diabetes mellitus with complication (Chronic 09/09/17) PVD (peripheral vascular disease) (Chronic 09/09/17) Iron deficiency anemia (Chronic 09/09/17) Gastrointestinal hemorrhage (Acute 09/09/17) Diabetic peripheral neuropathy (Chronic 09/09/17) CLL (chronic lymphocytic leukemia) (Chronic 09/09/17) Anemia (Acute) Fever (Acute) Micturition syncope (Chronic) Osteomyelitis of toe of left foot (Chronic) B12 deficiency (Chronic) Social History Smoking/Tobacco Use Status: Current every day Tobacco Type: cigarettes Alcohol Intake: former Drug use: Never Substance use type: does not use Do you feel safe at home: Yes Do you feel safe in your relationship?: Yes Exam Const General: cooperative, healthy appearing, comfortable, no acute distress and ill appearing chronically Nutritional Appearance: cachectic and thin Orientation: alert, awake and oriented x3 [facility] Head: normal to inspection Ears: hearing grossly normal bilaterally Mouth: moist mucous membranes Chest Chest: normal inspection of the chest, normal palpation of entire chest wall, no crepitus and other (post surgical scar noted midline) Resp Effort & Inspection: normal respiratory effort, able to speak in complete sentences and no respiratory distress Auscultation: clear to auscultation bilaterally, no rales, no rhonchi and no wheezes Cardio Rate: regular rate Rhythm: regular rhythm Heart Sounds: S1 normal and S2 normal GI Inspection: normal to inspection, no edema and non-distended Palpation: soft, no hepatosplenomegaly, not firm, no guarding, not rigid and nontender Auscultation: normal bowel sounds Skin General skin exam: no rashes or lesions noted Trauma: no lacerations or abrasions Neuro General: alert, awake and oriented x3 Cognition: normal cognition Speech: speech normal Gait: normal gait Extrem General: normal to inspection, no pedal edema, no calf tenderness and normal gait Psych Appearance: grossly normal and well kempt Mental Status: mental status grossly normal Speech and Movement: speech and movement normal
[2019-01-27 15:21] LABS: INR 0.9 (0.9-1.1); PTT Activated 20.3 sec (21.0-31.4); Prothrombin Time 9.3 sec (9.3-11.0)
[2019-01-27 15:26] LABS: HGB 6.6 g/dL (13.5-17.5)
[2019-01-27 15:27] LABS: HCT 19.8 % (40.0-50.0)
[2019-01-27 15:28] LABS: ALT 16 U/L (12-78); AST 13 U/L (15-37); Absolute Eosinophil Count 0.25 k/cumm (0.0-0.7); Absolute Monocyte Count 0.63 k/cumm (0.11-0.7); Absolute Neutrophil Count 5.63 k/cumm (1.2-6.7); Albumin 3.1 g/dL (3.4-5.0); Alkaline Phosphatase 116 U/L (46-116); Anion Gap 11.1 mmol/L (3-11); BUN 34 mg/dL (7-18); Bilirubin, Total 0.3 mg/dL (0.2-1.0); CO2 23.9 mmol/L (21.0-32.0); CREATININE 0.98 mg/dL (0.70-1.30); Chloride 102 mmol/L (98-107); Glucose 196 mg/dL (70-100); Magnesium 1.6 mg/dL (1.8-2.4); NT-proBNP 292 pg/mL; Sodium 137 mmol/L (136-145); Total Protein 6.2 g/dL (6.4-8.2); Troponin I 0.02 ng/mL (0.00-0.06)
[2019-01-27 15:29] LABS: Basophilic Stippling Present; Diff Comment Manual Differential; Hypochromasia 1+; Macrocytosis 1+
--- NOTE | 2019-01-27 15:30 | DI.RAD_ITS ---
SYMPTOMS/DIAGNOSIS: SHORTNESS OF BREATH PA AND LATERAL CHEST: Comparison is made with August,. The heart size is normal. The patient is status post CABG. An electronic device is seen over the left upper chest. There are emphysematous changes and mild pulmonary scarring. No superimposed infiltrate, effusion or pulmonary edema is seen. IMPRESSION: No acute abnormality.
[2019-01-27] MEDS: Omeprazole 20 MG CAPCR PO (20:38)
== END 2019-01-27 22:48 | disposition left against medical advice (07) ==
PROVIDERS: Emergency Provider Physician Assistant; PCP Family Medicine
DX: K92.2 Gastrointestinal hemorrhage, unspecified (principal); D64.9 Anemia, unspecified; R42 Dizziness and giddiness; R19.5 Other fecal abnormalities; R71.0 Precipitous drop in hematocrit; E11.40 Type 2 diabetes mellitus with diabetic neuropathy, unspecified; I25.10 Atherosclerotic heart disease of native coronary artery without angina pectoris; R06.09 Other forms of dyspnea; R53.83 Other fatigue; R64 Cachexia; I10 Essential (primary) hypertension; Z79.4 Long term (current) use of insulin; Z95.1 Presence of aortocoronary bypass graft; Z53.29 Procedure and treatment not carried out because of patient's decision for other reasons; Z85.6 Personal history of leukemia
CPT/HCPCS: 36415; 36430; 80053; 86850; 86900; 86901; 86920; 86945; 93005; 99285; 71046; 83735; 83880; 84484; 85025; 85610; 85730; 93010; P9016

== ENCOUNTER 2019-01-28 12:15 | Emergency (ER) | payer OTHER, SELFPAY ==
[2019-01-28 12:19] VITALS: BP 134/45; PULSE 76; RESP 20; TEMP 36.7
--- NOTE | 2019-01-28 12:39 | NUR.NOTE ---
Nursing Note: Appt made with General Surgery January 30 @ 11am. Twila Shane.
--- NOTE | 2019-01-28 12:48 | ED.GENADUL_ITS ---
Discharge Plan Disposition Patient Disposition: HOME Condition: Stable Discharge Details Chief Complaint: Recheck Clinical Impression: Gastrointestinal hemorrhage Primary Care Provider: Curtis Chavarria ED Provider: Ranjan Simeon Home Meds and New Rx's Prescriptions: No Action nitroglycerin 0.4 mg tablet, sublingual 0.4 mg SL ONCE Qty: 30 RF: 0 pen needle, diabetic [Lite Touch Insulin Pen [place]] 31 gauge x 5/16 needle .ROUTE .MEDSUPPLY Qty: 100 RF: 5 lancets [Accu-Chek Softclix Lancets] misc .ROUTE .MEDSUPPLY Qty: 200 RF: 4 FreeStyle Lite Strips strip .ROUTE .MEDSUPPLY Qty: 100 RF: 11 blood-glucose meter [FreeStyle [place] Lite] kit .ROUTE .MEDSUPPLY Qty: 1 RF: 0 atorvastatin [Lipitor] 80 MG tablet 80 mg PO DAILY RF: 0 glipizide 5 mg tablet 2.5 mg PO HS PRN (Reason: t-1 1700) RF: 0 Lantus Solostar U-100 Insulin 100 unit/mL (3 mL) insulin pen 34 unit Sub-Q DAILY RF: 0 ferrous sulfate 325 mg (65 mg iron) tablet See Patient Comments PO DAILY RF: 0 Discharge Instructions Additional Instructions: You have an appointment this SaturdayJanuary 30 with general surgery at 11am. If you feel you are becoming more short of breath or significant weakness or chest pain return to the emergency department Referrals: Donita Blankenship MD [ [facility] STAFF PHYSICIAN] - Medical Decision Making 73 yo male with multiple medical problems sent in from pcp's office after he was seen yesterday and left AMA for gi bleed. Yesterday he had weakness/shortness of breath and was found to be anemic with hgb less than 7. There were initially no beds here and he declined any transfers and was transfused 1 unit. A bed did become available here but after being in the ED 9 hours per pt he did not want to be admitted. He states he feels fine today and has no complaints. He was seen at his pcp's office today and sent here after he talked to the hospitalist about admission and felt coming to the ED would be the best route. the pt is currently very frustrated and does not want to be here. He states if he is not going to have an endoscopy or colonoscopy today which unfortantely won't be done given he is HD stable. He is declining to have any lab work or admission at this time. He has capacity to make his own decisions and understands the risks including and disability and will be leaving against my medical advise. I am recommending if he is not willing to stay that he see general surgery to schedule egd/colonoscopy which he is agreeable to. We have set him up with general surgery at 11am this Saturday. Pt understands he can return if he changes his mind at any time and also return if he is worsening. Differential Diagnosis upper vs lower gi bleed, anemia HPI General Mode of arrival: ambulatory . Date/Time Provider Initiated Documentation: 01/28/19 12:23 . Limitations to Documentation: no limitations . Information obtained by: patient . History of Present Illness 73 year old M presents to the emergency department with the chief complaint of dark stools, described as mild, Patient started experiencing this day(s) (3) and it has been intermittent. No relieving factors improve symptom(s), No exacerbating factors reported . Patient notes no other symptoms.. Patient did receive the following treatments prior to arrival, none Related Data Home Medications Medication Instructions Recorded Confirmed atorvastatin [Lipitor] 80 mg PO DAILY 11/19/16 01/28/19 nitroglycerin 0.4 mg sublingual 0.4 mg SL ONCE #30 tab 09/08/18 01/28/19 tablet lancets #200 each 10/23/18 01/28/19 pen needle, diabetic 31 gauge x #100 each 10/31/18 01/28/1916 blood sugar diagnostic strips #100 each 11/07/18 01/28/19 blood-glucose meter kit #1 each 11/07/18 01/28/19 Lantus Solostar U-100 Insulin 34 unit SUB-Q DAILY 12/24/18 01/28/19 glipizide 5 mg tablet 2.5 mg PO HS PRN 12/30/18 01/28/19 ferrous sulfate 325 mg (65 mg See Rx Instructions PO DAILY tab 01/13/19 01/28/19 iron) tablet Previous Rx's Medication Instructions Recorded nitroglycerin 0.4 mg sublingual 0.4 mg SL ONCE #30 tab 09/08/18 tablet lancets #200 each 10/23/18 pen needle, diabetic 31 gauge x #100 each 10/31/18/ blood sugar diagnostic strips #100 each 11/07/18 blood-glucose meter kit #1 each 11/07/18 Allergies Allergy/AdvReac Type Severity Reaction Status Date / Time No Known Allergies Allergy Verified 01/28/19 12:22 General Stated Complaint: Recheck CORI: 4 Review of Systems Review of Systems All systems reviewed & are unremarkable except as noted in HPI and below Constitutional Denies chills, Denies fever(s) and Denies weakness ENT Denies change in voice Cardiovascular Denies chest pain and Denies dyspnea Respiratory Denies cough and Denies dyspnea Gastrointestinal Denies abdominal pain, Denies nausea and Denies vomiting Neurologic Denies weakness PFS Social History Smoking/Tobacco Use Status: Current every day Tobacco Type: cigarettes Alcohol Intake: former Drug use: Never Substance use type: does not use Do you feel safe at home: Yes Do you feel safe in your relationship?: Yes Exam Const General: no acute distress Orientation: alert HENMT Head: normal to inspection Ears: external ears normal General nose exam: external nose normal Mouth: moist mucous membranes Eyes General: appearance normal, both eyes and all related structures Neck Neck: normal visual inspection Resp Effort & Inspection: normal respiratory effort and able to speak in complete sentences Cardio Rate: regular rate GI Palpation: soft Skin General skin exam: no rashes or lesions noted Neuro General: alert and oriented x3 Extrem General: normal to inspection Psych Mental Status: mental status grossly normal Course Vital Signs Temperature 36.7 C 01/28/19 12:19 Pulse 76 01/28/19 12:19 Respiratory Rate 20 01/28/19 12:19 Blood Pressure 134/45 L 01/28/19 12:19 Temperature 36.7 C 01/28/19 12:19 Pulse 76 01/28/19 12:19 Respiratory Rate 20 01/28/19 12:19 Respiratory Effort Non-Labored 01/28/19 12:19 Blood Pressure 134/45 L 01/28/19 12:19
[2019-01-28 13:43] VITALS: BP 134/45; PULSE 76; RESP 20; TEMP 36.7
== END 2019-01-28 12:53 | disposition home or self-care (01) ==
PROVIDERS: Emergency Provider Emergency Medicine; PCP Family Medicine
DX: K92.2 Gastrointestinal hemorrhage, unspecified (principal); Z53.29 Procedure and treatment not carried out because of patient's decision for other reasons; E11.9 Type 2 diabetes mellitus without complications; Z79.4 Long term (current) use of insulin
CPT/HCPCS: 36416; 82962; 99282

== ENCOUNTER 2019-02-06 13:11 | Observation (INO) | payer OTHER, SELFPAY ==
[2019-02-06] VITALS (22 sets, daily range): BP systolic 117–167; BP diastolic 46–71; PULSE 62–79; RESP 13–20; TEMP 35.3–37.5; O2SAT 73–100
[2019-02-06] MEDS: Lactated Ringers 1,000 ML 80 ML IV (10:58)
[2019-02-06 12:00] LABS: HCT 23.2 % (40.0-50.0); HGB 7.3 g/dL (13.5-17.5); Mean Corp. HGB Concentration 31.5 g/dL (32.0-36.0); Mean Corpuscular Hemoglobin 30.3 pg (27.0-33.0); Mean Corpuscular Volume 96.3 fL (80-95); Mean Platelet Volume 8.9 fL (8.0-11.0); Platelet Count 311 x1000/uL (130-400); RBC 2.41 m/cumm (4.50-6.00); RBC Distribution Width 15.7 % (11.8-14.1); White Blood Cell Count 13.74 k/cumm (4.4-10.8)
[2019-02-06 12:38] LABS: Iron 12 ug/dL (50-175); Total Iron Binding Capacity 315 ug/dL (250-450); Transferrin Sat 4 % (20-55)
--- NOTE | 2019-02-06 12:56 | STOM_PTH ---
PATIENT: JOSEF MOSER JR LOC: U#:[id number] AGE/SX: 73/M ROOM: [facility]218 RE02/06/[address]: Sobia Knox : 1945 BED: A DIS: 02/07/2019 SPEC #: [id number] RECD: 02/06/19 17:43 STATUS: JESUS REQ #: [id number] VALERIO: 02/06/19 12:[address]: Sobia Knox DEPT: Surgical Specimen RECD BY: Anisha Avery ENTERED: 02/06/19 17:43 SP TYPE: STOMACH OTHR DR: Curtis Chavarria MD Tissues: 1 - STOMACH BIOPSY Procedures: GROSS AND MICRO LEVEL 4 HERCEPTEST Comments: [id number]
--- NOTE | 2019-02-06 13:22 | ENDO_ITS ---
Date of service: 02/06/19 Time of Service: 13:22 Endoscopy Report DATE OF PROCEDURE: 02/06/19 PRE-OP DIAGNOSIS: anemia/wt loss POST-OP DIAGNOSIS: other PROCEDURE: egd w/ bx SURGEON: Sobia Knox ANESTHESIA: GETA ESTIMATED BLOOD LOSS: 10 PATHOLOGY: other COMPLICATIONS: None DISPOSITION: PACU INDICATIONS: hgb PROCEDURE DESCRIPTION: After informed consent was obtained the patient was take to the procedure room and placed in a supine position. Monitors were applied and a time out was done. The patients name, date of , procedure type, allergies to medications and metal in their body was reviewed. A bite block was placed and the patient was sedated. Once sedated and comfortable the gastroscope was advanced through the oropharynx which was grossly normal into the esophagus. The proximal and mid-esophagus were nl. the distal esophagus was nl. However, the tumor is around the fundus/cardia on the gastric side of the GE junction. This does inhibit passage of the scope. I am able to advance the scope into the body of the stomach. However, I cannot pass it down to the antrum/pylorus. In the region of the fondus in the GE junction, patient has a large size. It is fungating & is very friable. Multiple biopsies were taken. The stomach the inferior portion of the body of the stomach at the GE in the antrum are normal. The antrum freely patent. I cannot maneuver pass the mass further than group home down the stomach as it is impinging on the scope and I do not want to cause any more trauma. It i retroflexed at the GE junction's - again there is tumor on the gastric side of cardia region. Obstruction may be a possibility/problem in the future. There is no active bleeding noted but again it is friable and oozing and we lost about 20 cc of blood. The esophagus is clean: There are no esophageal erosions or varices, diverticular, stricture. Patient will be admitted to the hospital for transfusion and for CAT scan. If there is no signs of any further bleeding he can be discharged in a.m. follow-up in my office for results of biopsy believe he already has a log roper oncologist because of his history of CLL.. Patient remains hemodynamically stable and had no problems throughout the procedure. His airway was very tenuous. At the end of the procedure this seemed to be the etiology of the bleeding. The colonoscopy was canceled as he did not appear to be stable from an anesthesia standpoint. .
[2019-02-06 13:41] LABS: Abs Immature Grans 0.02 k/cumm (0.0-0.09); Absolute Basophil Count 0.03 k/cumm (0.0-0.2); Absolute Eosinophil Count 0.15 k/cumm (0.0-0.7); Absolute Lymphocyte Count 8.39 k/cumm (1.2-3.4); Basophils % 0.2; Eosinophils % 1.1; HCT 22.2 % (40.0-50.0); Immature Grans % 0.1; Lymphocytes % 62.3; Mean Corp. HGB Concentration 31.5 g/dL (32.0-36.0); Mean Corpuscular Hemoglobin 30.3 pg (27.0-33.0); Mean Corpuscular Volume 96.1 fL (80-95); Mean Platelet Volume 9.1 fL (8.0-11.0); Monocytes % 5.2; Neutrophils % 31.1; Platelet Count 306 x1000/uL (130-400); RBC 2.31 m/cumm (4.50-6.00); RBC Distribution Width 15.6 % (11.8-14.1); White Blood Cell Count 13.46 k/cumm (4.4-10.8)
[2019-02-06 14:05] LABS: ALT 16 U/L (12-78); AST 13 U/L (15-37); Albumin 2.7 g/dL (3.4-5.0); Alkaline Phosphatase 114 U/L (46-116); Anion Gap 6.1 mmol/L (3-11); BUN 13 mg/dL (7-18); Bilirubin, Total 0.2 mg/dL (0.2-1.0); CO2 27.9 mmol/L (21.0-32.0); CREATININE 0.71 mg/dL (0.70-1.30); Calcium 8.6 mg/dL (8.5-10.1); Chloride 106 mmol/L (98-107); Glucose 89 mg/dL (70-100); Potassium 3.6 mmol/L (3.5-5.1); Sodium 140 mmol/L (136-145); Total Protein 5.7 g/dL (6.4-8.2)
[2019-02-06 14:19] LABS: Absolute Neutrophil Count 4.19 k/cumm (1.2-6.7)
[2019-02-06 14:24] LABS: Anisocytosis 1+
[2019-02-06 14:25] LABS: Diff Comment Agrees w/ Instrument
[2019-02-06] MEDS: Pantoprazole 40 MG VIAL IVP (14:49)
[2019-02-06] MEDS: Sucralfate 1 GM TAB PO ×2 (14:50→20:10)
[2019-02-06] MEDS: Normal Saline 1,000 ML 100 ML IV (14:50)
--- NOTE | 2019-02-06 15:00 | NUR.NOTE ---
Nursing Note: 1405: pt arrives from pacu to room 218 via stretcher. pt able to move self from stretcher to bed without incident. pt has patent IV in RH. pt alert/oriented x 3. pt oriented to call jung system. HR regular, LS clear-diminished, hypo BS, no s/s of bleeding at this time. pt able to swallow safely. FS obtained, VS obtained-see emar for more information. continue to monitor.
--- NOTE | 2019-02-06 15:24 | HPE_ITS ---
Date of service: 02/06/19 Time of Service: 15:16 Assessment and Plan (1) Iron deficiency anemia due to chronic blood loss: Current visit: Yes Status: Acute venifer (2) Chronic iron deficiency anemia: Current visit: Yes Status: Acute as above (3) Bilateral carotid artery disease: Current visit: No Status: Chronic stable (4) Diabetes mellitus: Current visit: No Status: Chronic poorly controlled w/ complications- automatic dysfunction and PAD (5) Weight loss: Current visit: No Status: Acute (6) PVD (peripheral vascular disease): Current visit: No Status: Chronic (7) Type 2 diabetes mellitus with complication: Current visit: No Status: Chronic (8) Diabetic peripheral neuropathy: Current visit: No Status: Chronic (9) CLL (chronic lymphocytic leukemia): Current visit: No Status: Chronic (10) Gastric malignant neoplasm: Current visit: Yes Status: Acute s/p EGD. Lg mass in stomach. mult Bx taken Bx results have been taking >1 week from [facility] transfuse to try to keep hgb around 9-10. Pt is going to prob require chronic transfusion. 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 Prob try to get in at [facility] for f/u and treatment. Pt needs nutritional support- signif wt loss. A1c is 13. still smoking at not able to stop signif cardiovascular dx- Hx of [place]/CVA and PAD (s/p amputation) Htn/elevated chol./malnourished -pt would be very poor surgical candidate. History of Present Illness Consults Consult date: 02/06/19 Narrative: pt admitted post endo. Found to have lg fungating mass in stomach. Hgb was 7.3 today. Pt has had a long standing hx of anemia and was felt to be from his CLL. Pt was in ED on 01/30 and hgb was 6.6. He would not stay in the hosp for scopes. He says he has been feeling good. no cp or sob. he says he has been eating and denies early satiety or diff swallowing. He says he has been gaining wt. His alst A1c was 13. He has a hx of cardiac Dx/ TIA or CVA- not clearly differentiated /very poorly controlled DM/ PAD & PVD/ he has had toes amps on the left. He has 60% blockage in b/l carotid. he has smoked 1ppd for 50 yrs. He probably has some component of COPD as well. Patient Name: JOSEF MOSER RUnit #: [id number]: DI Ordering Provider: Curtis Chavarria : REG CLI Primary Care Provider: Curtis Chavarria Date of Exam: 01/14/19Sex: M : 7Age: 73 Date of study: 01/14/2019 Summary: 1. Left ventricle: The cavity size was normal. Wall thickness was increased in a pattern of mild LVH. Systolic function was normal. The estimated ejection fraction was 60-65%. Wall motion was normal; there were no regional wall motion abnormalities. Findings consistent with diastolic dysfunction. Doppler parameters are consistent with high ventricular filling pressure. Average of medial and lateral annulus E velocity: 0.083m/sec. Ratio of mitral valve peak E velocity to average of medial and lateral annulus peak E velocity: 15. 2. Aortic valve: There was mild regurgitation. 3. Mitral valve: Mildly calcified annulus. There was mild regurgitation. 4. Left atrium: The atrium was mildly to moderately dilated. Volume/bsa ES (2-p Simpsons): 39ml/m^2. 5. Right ventricle: The cavity size was normal. Wall thickness was normal. Systolic function was normal. 6. Pulmonary arteries: Pulmonary systolic pressure was increased, in the range of 40mm Hg to 45mm Hg. Review of Systems Review of Systems All systems reviewed & are unremarkable except as noted in HPI and below Constitutional Reports anorexia, Reports fatigue, Denies headache(s) and Denies weakness Comments: SOB Eyes Reports as per HPI, Reports system reviewed and no additional complaints, except as docu and Denies change in vision ENT Reports system reviewed and no additional complaints, except as docu, Reports as per HPI, Denies change in voice, Denies dental pain, Denies dysphagia, Denies dizziness, Denies facial pain, Denies headache(s) and Denies odynophagia Comments: + glasses Cardiovascular Reports as per HPI, Reports system reviewed and no additional complaints, except as docu, Denies chest pain, Denies chest pain with activity, Denies syncope, Denies leg edema and Denies dyspnea Comments: denies CP says he got a clean bill of health recently from [facility]. Respiratory Reports as per HPI, Reports system reviewed and no additional complaints, except as docu, Denies chest congestion, Denies pain with cough and Denies dyspnea Comments: smokers cough not on home O2 does not use any MDI Gastrointestinal Reports as per HPI, Reports system reviewed and no additional complaints, except as docu, Denies abdominal pain, Denies bloating, Denies change in bowel habits, Denies change in stool character, Denies constipation, Denies cramping, Denies dysphagia, Denies early satiety, Denies heartburn, Denies diarrhea, Denies nausea, Denies odynophagia and Denies vomiting Comments: denies blood in stool. Denies wt loss. says appeitet is good and has no pain or diff swallowing. No changes in BM. Pt is cachix w/ temporal muscle wasting Genitourinary Reports system reviewed and no additional complaints, except as docu Musculoskeletal Reports system reviewed and no additional complaints, except as docu, Reports as per HPI, Denies abnormal gait, Reports atrophy, Denies arthralgias and Denies muscle weakness Comments: s/p amputation on left foot. no open lesion. severe wasting of leg muscles. pt says he is very active and has no problems walking. denies leg cramps w/ walking Integumentary/Breasts Reports system reviewed and no additional complaints, except as docu, Reports as per HPI, Denies changing lesions, Denies new lesions and Denies jaundice Neurologic Reports system reviewed and no additional complaints, except as docu, Reports as per HPI, Denies abnormal speech, Denies abnormal gait, Denies dizziness, Denies syncope, Denies headache(s), Denies memory loss and Denies weakness Psychiatric Reports system reviewed and no additional complaints, except as docu, Reports as per HPI, Denies change in appetite and Denies memory loss Endocrine Reports fatigue Hematologic/Lymphatic Reports system reviewed and no additional complaints, except as docu, Denies easy bleeding and Denies easy bruising Comments: chronic CLL and long standing anemia. pt sees hematologists down at [facility] Allergic/Immunologic Denies system reviewed and no additional complaints, except as docu, Reports as per HPI and Denies urticaria PFSH Medical History Gastric malignant neoplasm (Acute) Chronic iron deficiency anemia (Acute) Iron deficiency anemia due to chronic blood loss (Acute) Stroke (Chronic) Bilateral carotid artery disease (Chronic) Diabetes mellitus (Chronic) Counseling on health promotion and disease prevention (Acute) Weight loss (Acute 09/09/17) Type 2 diabetes mellitus with complication (Chronic 09/09/17) PVD (peripheral vascular disease) (Chronic 09/09/17) Iron deficiency anemia (Chronic 09/09/17) Gastrointestinal hemorrhage (Acute 09/09/17) Diabetic peripheral neuropathy (Chronic 09/09/17) CLL (chronic lymphocytic leukemia) (Chronic 09/09/17) Anemia (Acute) Fever (Acute) Micturition syncope (Chronic) Osteomyelitis of toe of left foot (Chronic) B12 deficiency (Chronic) Amputated toe of left foot (Acute) History of trigger finger (Acute) Surgical History Hx of CABG (Chronic) Family History Other Diabetes Heart disease Social History Smoking/Tobacco Use Status: Current every day Tobacco Type: cigarettes Alcohol Intake: former Drug use: Never Substance use type: does not use Do you feel safe at home: Yes Do you feel safe in your relationship?: Yes Meds Home Medications Medication Instructions Recorded Confirmed Type atorvastatin [Lipitor] 80 mg PO DAILY 11/19/16 02/06/19 History nitroglycerin 0.4 mg sublingual 0.4 mg SL ONCE #30 tab 09/08/18 02/06/19 Rx tablet lancets #200 each 10/23/18 01/30/19 Rx pen needle, diabetic 31 gauge x #100 each 10/31/18 01/30/19 Rx /16 blood sugar diagnostic strips #100 each 11/07/18 01/30/19 Rx blood-glucose meter kit #1 each 11/07/18 01/30/19 Rx Lantus Solostar U-100 Insulin 34 unit SUB-Q DAILY 12/24/18 02/06/19 History glipizide 5 mg tablet 2.5 mg PO HS PRN 12/30/18 02/06/19 History ferrous sulfate 325 mg (65 mg See Rx Instructions PO DAILY tab 01/13/19 02/06/19 History iron) tablet bisacodyl 5 mg tablet,delayed 5 mg PO ONCE #4 tab 01/30/19 02/06/19 Rx release polyethylene glycol 3350 17 238 g PO ONCE #238 gm 01/30/19 02/06/19 Rx gram/dose oral powder multivitamin [Multiple Vitamins] 1 tab PO DAILY 02/04/19 02/06/19 History Allergies Allergy/AdvReac Type Severity Reaction Status Date / Time No Known Allergies Allergy Verified 02/06/19 10:29 Exam Const General: no acute distress, anxious and ill appearing Nutritional Appearance: cachectic, malnourished and underweight Orientation: alert, awake and oriented x3 HENMT Head: normal to inspection General nose exam: external nose normal Face and sinus: normal facial exam and dry mucous membranes Mouth: oral mucosae normal Teeth and gingiva: dentition normal Other: temporal muscle wasting no jaundice Chest Chest: normal inspection of the chest Resp Effort & Inspection: normal respiratory effort Auscultation: clear to auscultation bilaterally and diminished lung sounds Cardio Jugular venous pressure: no JVD Rate: regular rate Rhythm: regular rhythm GI Inspection: normal to inspection and scaphoid Palpation: soft Other: no pain Skin Lesions: no lesions Neuro General: alert, awake, oriented x3, moves all extremities and CN's II-XI intact bilaterally Extrem General: normal to inspection, capillary refill delayed, no pedal edema, amputa tion noted and no edema Right upper extremity: full ROM Results Labs : 02/06/19 13:20 02/06/19 13:25 Laboratory Results - last 24 hr 02/06/19 02/06/19 02/06/19 11:50 11:50 13:20 WBC 13.74 H 13.46 H RBC 2.41 L 2.31 L Hgb 7.3 L 7.0 L Hct 23.2 L 22.2 L MCV 96.3 H 96.1 H MCH 30.3 30.3 MCHC 31.5 L 31.5 L RDW 15.7 H 15.6 H Plt Count 311 306 MPV 8.9 9.1 Immature Gran % 0.1 Neutrophils % 31.1 Lymphocytes % 62.3 Monocytes % 5.2 Eosinophils % 1.1 Basophils % 0.2 Absolute Neutrophils 4.19 Absolute Lymphocytes 8.39 H Absolute Monocytes 0.70 Absolute Eosinophils 0.15 Absolute Basophils 0.03 Differential Comment Agrees w/ instrument RBC Morphology See below Anisocytosis 1+ Sodium Potassium Chloride Carbon Dioxide Anion Gap BUN Creatinine Estimated GFR/1.73 m2 Glucose Calcium Iron 12 L TIBC 315 Transferrin % Sat 4 L Total Bilirubin AST ALT Alkaline Phosphatase Total Protein Albumin Patient ABO/Rh Antibody Screen Crossmatch 02/06/19 02/06/19 13:25 13:27 WBC RBC Hgb Hct MCV MCH MCHC RDW Plt Count MPV Immature Gran % Neutrophils % Lymphocytes % Monocytes % Eosinophils % Basophils % Absolute Neutrophils Absolute Lymphocytes Absolute Monocytes Absolute Eosinophils Absolute Basophils Differential Comment RBC Morphology Anisocytosis Sodium 140 Potassium 3.6 Chloride 106 Carbon Dioxide 27.9 Anion Gap 6.1 BUN 13 Creatinine 0.71 Estimated GFR/1.73 m2 >= 60.00 Glucose 89 Calcium 8.6 Iron TIBC Transferrin % Sat Total Bilirubin 0.2 AST 13 L ALT 16 Alkaline Phosphatase 114 Total Protein 5.7 L Albumin 2.7 L Patient ABO/Rh A Negative Antibody Screen Negative Crossmatch See Detail Last Vital Signs Temp 36.2 C L 02/06/19 14:15 Pulse 72 02/06/19 14:15 Resp 20 02/06/19 14:15 BP 155/62 H 02/06/19 14:15 Pulse Ox 100 02/06/19 14:15
[2019-02-06] MEDS: Nicotine 21 MG/24 HR PATCH TD (16:34)
[2019-02-06] MEDS: Acetaminophen 325 MG TAB 650 MG PO (17:06)
[2019-02-06] MEDS: diphenhydrAMINE 25 MG CAP PO (17:06)
[2019-02-06] MEDS: glipiZIDE 5 MG TAB 2.5 MG PO (17:17)
--- NOTE | 2019-02-06 19:12 | W.PM.PROGNOT ---
Date of Service Date of service: 02/06/19 Time of Service: 16:00 Assessment and Plan (1) Gastric malignant neoplasm: Current visit: Yes Status: Acute Transfusion and Venofer today pt has no pain no n/v started on carafate today as well rox patc plan CT scanning in am Pt sees Dr. Diaz [place] for [place] CLL- unsure if she is general heme/onc or just Leukemia [place] in [facility]. F/u will F/u in office on 02/16. should have all test results and will get onc appts arranged. treat symptoms at this point pt should start on glucerna monitor Hgb closely- will prob require periodic infusion . Subjective Interval history since last seen: pt seen after EGD. doing well. no chest pain or sob. no n/v. ate a sandwich. abdomen soft and nontender. No BM. Objective Objective Clinical Data: Abnormal lab results 02/06/19 02/06/19 02/06/19 Range/Units 11:50 11:50 13:20 WBC 13.74 H 13.46 H (4.4-10.8) k/cumm RBC 2.41 L 2.31 L (4.50-6.00) m/cumm Hgb 7.3 L 7.0 L (13.5-17.5) g/dL Hct 23.2 L 22.2 L (40.0-50.0) % MCV 96.3 H 96.1 H (80-95) fL MCHC 31.5 L 31.5 L (32.0-36.0) g/dL RDW 15.7 H 15.6 H (11.8-14.1) % Absolute Lymphocytes 8.39 H (1.2-3.4) k/cumm Iron 12 L (50-175) ug/dL Transferrin % Sat 4 L (20-55) % AST (15-37) U/L Total Protein (6.4-8.2) g/dL Albumin (3.4-5.0) g/dL Crossmatch 02/06/19 02/06/19 Range/Units 13:25 13:27 WBC (4.4-10.8) k/cumm RBC (4.50-6.00) m/cumm Hgb (13.5-17.5) g/dL Hct (40.0-50.0) % MCV (80-95) fL MCHC (32.0-36.0) g/dL RDW (11.8-14.1) % Absolute Lymphocytes (1.2-3.4) k/cumm Iron (50-175) ug/dL Transferrin % Sat (20-55) % AST 13 L (15-37) U/L Total Protein 5.7 L (6.4-8.2) g/dL Albumin 2.7 L (3.4-5.0) g/dL Crossmatch See Detail Vital Signs Temperature 37.3 C 02/06/19 18:27 Temperature Source Tympanic 02/06/19 17:30 Pulse 72 02/06/19 18:27 Pulse Rhythm Regular 02/06/19 10:32 Respiratory Rate 18 02/06/19 18:27 Respiratory Depth Normal 02/06/19 10:32 Blood Pressure 126/53 L 02/06/19 18:27 Pulse Oximetry 98 02/06/19 18:27 Respiratory End-tidal CO2 31 02/06/19 13:50 Oxygen Delivery Method Room Air 02/06/19 18:27 Oxygen Flow Rate 0 02/06/19 18:27 Pain Level 0 02/06/19 13:50 Intake & Output 02/05/19 02/06/19 02/06/19 23:59 11:59 23:59 Intake Total 450 / 450 Balance 450 / 450 Weight 51.4 kg Intake: IV 210 / 210 Oral 240 / 240 Other: Stool Size Moderate Stool Characteristics Brown Emesis Description None Laboratory Results WBC 13.46 k/cumm (4.4-10.8) H 02/06/19 13:20 RBC 2.31 m/cumm (4.50-6.00) L 02/06/19 13:20 Hgb 7.0 g/dL (13.5-17.5) L 02/06/19 13:20 Hct 22.2 % (40.0-50.0) L 02/06/19 13:20 MCV 96.1 fL (80-95) H 02/06/19 13:20 MCH 30.3 pg (27.0-33.0) 02/06/19 13:20 MCHC 31.5 g/dL (32.0-36.0) L 02/06/19 13:20 RDW 15.6 % (11.8-14.1) H 02/06/19 13:20 Plt Count 306 x1000/uL (130-400) 02/06/19 13:20 MPV 9.1 fL (8.0-11.0) 02/06/19 13:20 Immature Gran % 0.1 02/06/19 13:20 Neutrophils % 31.1 02/06/19 13:20 Lymphocytes % 62.3 02/06/19 13:20 Monocytes % 5.2 02/06/19 13:20 Eosinophils % 1.1 02/06/19 13:20 Basophils % 0.2 02/06/19 13:20 Absolute Neutrophils 4.19 k/cumm (1.2-6.7) 02/06/19 13:20 Absolute Lymphocytes 8.39 k/cumm (1.2-3.4) H 02/06/19 13:20 Absolute Monocytes 0.70 k/cumm (0.11-0.7) 02/06/19 13:20 Absolute Eosinophils 0.15 k/cumm (0.0-0.7) 02/06/19 13:20 Absolute Basophils 0.03 k/cumm (0.0-0.2) 02/06/19 13:20 Differential Comment Agrees w/ instrument 02/06/19 13:20 RBC Morphology See below 02/06/19 13:20 Anisocytosis 1+ 02/06/19 13:20 Sodium 140 mmol/L (136-145) 02/06/19 13:25 Potassium 3.6 mmol/L (3.5-5.1) 02/06/19 13:25 Chloride 106 mmol/L (98-107) 02/06/19 13:25 Carbon Dioxide 27.9 mmol/L (21.0-32.0) 02/06/19 13:25 Anion Gap 6.1 mmol/L (3-11) 02/06/19 13:25 BUN 13 mg/dL (7-18) 02/06/19 13:25 Creatinine 0.71 mg/dL (0.70-1.30) 02/06/19 13:25 Estimated GFR/1.73 m2 >= 60.00 (mL/min/1.73m2) 02/06/19 13:25 Glucose 89 mg/dL (70-100) 02/06/19 13:25 Calcium 8.6 mg/dL (8.5-10.1) 02/06/19 13:25 Iron 12 ug/dL (50-175) L 02/06/19 11:50 TIBC 315 ug/dL (250-450) 02/06/19 11:50 Transferrin % Sat 4 % (20-55) L 02/06/19 11:50 Total Bilirubin 0.2 mg/dL (0.2-1.0) 02/06/19 13:25 AST 13 U/L (15-37) L 02/06/19 13:25 ALT 16 U/L (12-78) 02/06/19 13:25 Alkaline Phosphatase 114 U/L (46-116) 02/06/19 13:25 Total Protein 5.7 g/dL (6.4-8.2) L 02/06/19 13:25 Albumin 2.7 g/dL (3.4-5.0) L 02/06/19 13:25 Patient ABO/Rh A Negative 02/06/19 13:27 Antibody Screen Negative 02/06/19 13:27 Crossmatch See Detail 02/06/19 13:27
[2019-02-06] MEDS: Furosemide 20 MG/2 ML VIAL 10 MG IVP (21:00)
[2019-02-07 00:43] VITALS: BP 151/67; PULSE 65; RESP 18; TEMP 37.3; O2SAT 98
[2019-02-07] MEDS: Sucralfate 1 GM TAB PO ×2 (02:11→08:56)
[2019-02-07 06:57] LABS: Abs Immature Grans 0.03 k/cumm (0.0-0.09); Absolute Basophil Count 0.02 k/cumm (0.0-0.2); Absolute Eosinophil Count 0.16 k/cumm (0.0-0.7); Absolute Lymphocyte Count 7.03 k/cumm (1.2-3.4); Absolute Monocyte Count 0.72 k/cumm (0.11-0.7); Basophils % 0.2; Eosinophils % 1.4; HCT 31.2 % (40.0-50.0); HGB 10.2 g/dL (13.5-17.5); Immature Grans % 0.3; Mean Corp. HGB Concentration 32.7 g/dL (32.0-36.0); Mean Corpuscular Hemoglobin 29.7 pg (27.0-33.0); Mean Corpuscular Volume 90.7 fL (80-95); Mean Platelet Volume 9.3 fL (8.0-11.0); Monocytes % 6.2; Neutrophils % 31.7; Platelet Count 239 x1000/uL (130-400); RBC 3.44 m/cumm (4.50-6.00); RBC Distribution Width 17.1 % (11.8-14.1); White Blood Cell Count 11.67 k/cumm (4.4-10.8)
[2019-02-07 07:06] LABS: Lymphocytes % 60.2
[2019-02-07 07:11] LABS: INR 0.9 (0.9-1.1); PTT Activated 23.8 sec (21.0-31.4); Prothrombin Time 9.4 sec (9.3-11.0)
[2019-02-07 07:18] LABS: ALT 19 U/L (12-78); AST 15 U/L (15-37); Albumin 2.8 g/dL (3.4-5.0); Alkaline Phosphatase 117 U/L (46-116); Anion Gap 5.9 mmol/L (3-11); BUN 12 mg/dL (7-18); Bilirubin, Total 0.6 mg/dL (0.2-1.0); CO2 29.1 mmol/L (21.0-32.0); CREATININE 0.74 mg/dL (0.70-1.30); Calcium 8.5 mg/dL (8.5-10.1); Chloride 102 mmol/L (98-107); Glucose 213 mg/dL (70-100); Sodium 137 mmol/L (136-145); Total Protein 5.9 g/dL (6.4-8.2)
[2019-02-07 07:20] VITALS: BP 173/67; PULSE 68; RESP 18; TEMP 36.7; O2SAT 96
--- NOTE | 2019-02-07 08:42 | DI.CT_ITS ---
SYMPTOM/DIAGNOSIS: GASTRIC CANCER CHEST/ABDOMEN AND PELVIC CT: CT examination of the chest, abdomen and pelvis was performed with intravenous infusion of 50 cc's of Omnipaque 350 and ingestion of dilute barium. The patient reportedly has a history of gastric carcinoma. Note is made of a sternotomy. The heart is not enlarged. No pericardial effusion is seen. No pleural effusion. No pneumothorax. No intracranial consolidation or mass. Tracheobronchial tree appears intact. No mediastinal or hilar adenopathy. No aortic dissection or aneurysm. No evidence of pulmonary embolic disease. No significant lesion of the bony thorax. No significant bony lesion identified on scanning of the abdomen and pelvis. There are multiple hepatic lesions which are of fairly low attenuation but probably not cystic and these may represent hepatic metastasis. The largest is 2.1 cm. in diameter lesion of the dome of the liver. Gallbladder is CT normal. Pancreas appears intact. No biliary dilatation is seen. Spleen is unremarkable. Adrenals and kidneys are unremarkable. Abdominal aorta is of normal diameter and no major vascular abnormality is seen. No gross retroperitoneal, mesenteric or pelvic adenopathy. There is a probable mass of the fundus of the stomach consistent with the diagnosis of gastric carcinoma. Questionable duodenal filling defect. Metastatic disease not excluded. Endoscopic correlation may be obtained if clinically indicated. CONCLUSION: Findings raising the possibility of hepatic metastasis in a patient with reported gastric carcinoma. No evidence of acute process.
[2019-02-07] MEDS: Atorvastatin 40 MG TAB 80 MG PO (08:55)
[2019-02-07] MEDS: Insulin Glargine 300 UNITS/3 ML PEN 34 UNITS SC (08:56)
[2019-02-07] MEDS: Omnipaque 350 MG/ML 100 ML BTL IJ (08:58)
[2019-02-07] MEDS: Normal Saline Flush 10 ML SYR IVP (08:59)
--- NOTE | 2019-02-07 09:26 | DI.VRAD_ITS ---
Addendum created by Ruel Morton MD on 02/07/2019 9:26:44 AM EDT Correction: The last line of the report for the CT abdomen pelvis should read The prostate is enlarged, greater than 5 cm. Recommend urology consult Initial report created on 02/07/2019 9:26:09 AM EDT EXAM: CT Chest With Contrast EXAM DATE/TIME: 02/07/2019 2:17 PM CLINICAL HISTORY: 73 years old, male; Signs and symptoms; Other: Gastric cancer TECHNIQUE: Imaging protocol: Axial computed tomography images of the chest with intravenous contrast. Coronal and sagittal reformatted images were created and reviewed. Radiation optimization: All CT scans at this facility use at least one of these dose optimization techniques: automated exposure control; mA and/or kV adjustment per patient size (includes targeted exams where dose is matched to clinical indication); or iterative reconstruction. Contrast material: OMNIPAQUE 350; Contrast volume: 100 ml; Contrast route: IV; COMPARISON: No relevant prior studies available. FINDINGS: Lungs: Mild panlobular emphysematous changes Pleural space: Normal. No pneumothorax. No pleural effusion. Heart: Coronary artery calcifications may indicate coronary artery disease Aorta: Normal. No aortic aneurysm. Lymph nodes: Unremarkable. No enlarged lymph nodes. Bones/joints: Median sternotomy atelectasis in the lingula Soft tissues: Unremarkable. IMPRESSION: EXAM: CT Abdomen and Pelvis With Contrast EXAM DATE/TIME: 02/07/2019 2:17 PM CLINICAL HISTORY: 73 years old, male; Signs and symptoms; Other: Gastric cancer TECHNIQUE: Imaging protocol: Axial computed tomography images of the abdomen and pelvis with intravenous contrast. Coronal and sagittal reformatted images were created and reviewed. Radiation optimization: All CT scans at this facility use at least one of these dose optimization techniques: automated exposure control; mA and/or kV adjustment per patient size (includes targeted exams where dose is matched to clinical indication); or iterative reconstruction. Contrast material: OMNIPAQUE 350; Contrast volume: 100 ml; Contrast route: IV; COMPARISON: No relevant prior studies available. FINDINGS: ABDOMEN: Liver: Multiple liver masses consistent with liver metastasis: 1.5 cm mass inferior right lobe . 2.1 cm mass in the dome of the liver. 2 cm in the left lobe 1 cm nodule superior to the gallbladder. Gallbladder and bile ducts: Normal. No calcified stones. No ductal dilation. Pancreas: Pancreatic atrophy. Calcifications in the pancreas consistent with chronic pancreatitis.. Spleen: Normal. No splenomegaly. Adrenals: Normal. No mass. Kidneys and ureters: Normal. No hydronephrosis. Stomach and bowel: 7 x 3 cm filling defect in the proximal stomach consistent with a history of gastric carcinoma. 2 cm Filling defect in the second duodenum may represent metastatic disease. Appendix: No evidence of appendicitis. PELVIS: Bladder: Unremarkable as visualized. Reproductive: Unremarkable as visualized. ABDOMEN and PELVIS: Intraperitoneal space: Normal. No free air. No significant fluid collection. Bones/joints: No acute fracture. No dislocation. Soft tissues: Unremarkable. Vasculature: Normal. No abdominal aortic aneurysm. Lymph nodes: Normal. No enlarged lymph nodes. Other findings: Includes enlarged Impression. IMPRESSION: 1. 7 x 3 cm filling defect in the proximal stomach consistent with a history of gastric carcinoma. 2. 2 cm Filling defect in the second duodenum may represent metastatic disease. 3. Multiple liver masses consistent with liver metastasis: 1.5 cm mass inferior right lobe . 2.1 cm mass in the dome of the liver. 2 cm in the left lobe 1 cm nodule superior to the gallbladder. Dictated and Authenticated by: Ruel Morton MD. Ordering:ADRY Ramsay MD
--- NOTE | 2019-02-07 10:51 | W.PM.DS.N ---
Date of service: 02/07/19 Time of Service: 10:52 DS: Diagnosis Discharge Diagnosis (1) Gastric malignant neoplasm: Status: Acute Discharge Plan Disposition Patient Disposition: HOME Condition: Stable Discharge Details Reason For Visit: ANEMIA Admit Date/Time: 02/06/19 13:11 Admit Provider: Sobia Knox Attending Provider: Sobia Knox [facility] Hospital Course: 73 y/o male who underwent an EGD for anemia with Dr. Knox on 02/06/19. He was found to have a large gastric mass suspicious for gastric cancer. Patient was admitted overnight for observation to receive iron transfusion, blood transfusion, and CT imaging. Patient is anxious to go home. He is seen with his and daughter at the bedside on 02/07/19. Hb came up from 7 to 10.2 after [address] chest/abd/pelvis concerning for liver mets. Gastric mass as well as a duodenal mass also noted. Findings reviewed with patient and family. He is tolerating a regular diet well this morning without nausea, vomiting, or abdominal pain. He is anxious to go home. He is to follow-up with Dr. Knox in the office in 2 weeks to review pathology and arrange for oncology referrals. Patient and family agree with discussion and plans for discharge this am. Home Meds and New Rx's Prescriptions: New sucralfate 1 gram Tablet 1 g PO Q6H Qty: 120 RF: 1 Continued nitroglycerin 0.4 mg tablet, sublingual 0.4 mg SL ONCE Qty: 30 RF: 0 pen needle, diabetic [Lite Touch Insulin Pen [place]] 31 gauge x 5/16 needle .ROUTE .MEDSUPPLY Qty: 100 RF: 5 polyethylene glycol 3350 17 gram/dose powder 238 g PO ONCE Qty: 238 RF: 0 bisacodyl [Dulcolax (bisacodyl)] 5 mg tablet,delayed release (DR/EC) 5 mg PO ONCE Qty: 4 RF: 0 lancets [Accu-Chek Softclix Lancets] misc .ROUTE .MEDSUPPLY Qty: 200 RF: 4 FreeStyle Lite Strips strip .ROUTE .MEDSUPPLY Qty: 100 RF: 11 blood-glucose meter [FreeStyle [place] Lite] kit .ROUTE .MEDSUPPLY Qty: 1 RF: 0 atorvastatin [Lipitor] 80 MG tablet 80 mg PO DAILY RF: 0 glipizide 5 mg tablet 2.5 mg PO HS PRN (Reason: t-1 1700) RF: 0 Lantus Solostar U-100 Insulin 100 unit/mL (3 mL) insulin pen 34 unit Sub-Q DAILY RF: 0 ferrous sulfate 325 mg (65 mg iron) tablet See Patient Comments PO DAILY RF: 0 multivitamin [Multiple Vitamins] Tablet 1 tab PO DAILY RF: 0 Discharge Instructions Stand Alone Forms: Nursing Discharge Form Referrals: Sobia Knox DO [OSTEOPATHIC DOCTOR] - (Please call the office on Saturday to schedule a follow up appointment for 2 weeks (02/16). [phone].) Activity:: Activity as Tolerated Equipment/Supplies:: No Equipment Needed Diet:: As Tolerated Exam Const General: cooperative, comfortable and no acute distress Nutritional Appearance: cachectic Orientation: alert and oriented x3 HENMT Head: normocephalic and atraumatic Eyes Sclera: sclerae normal Resp Effort & Inspection: normal respiratory effort and able to speak in complete sentences GI Inspection: non-distended Palpation: soft, not firm, no guarding and nontender DS: Data Vitals/I&O Vitals and I&O: Vital Signs Temperature 36.7 C 02/07/19 07:20 Temperature Source Tympanic 02/07/19 07:20 Pulse 68 02/07/19 07:20 Pulse Rhythm Regular 02/07/19 02:28 Respiratory Rate 18 02/07/19 07:20 Respiratory Effort Non-Labored 02/07/19 02:28 Respiratory Depth Normal 02/07/19 02:28 Respiratory Pattern Normal 02/07/19 02:28 Blood Pressure 173/67 H 02/07/19 07:20 Pulse Oximetry 96 02/07/19 07:20 Respiratory End-tidal CO2 31 02/06/19 13:50 Oxygen Delivery Method Room Air 02/07/19 07:20 Oxygen Flow Rate 0 02/07/19 07:20 Pain Level 0 02/07/19 07:20 Intake & Output 02/06/19 02/06/19 02/07/19 11:59 23:59 11:59 Intake Total 1949 250 / 250 Balance 1949 250 / 250 Weight 51.4 kg Intake: IV 1460 / 1460 0 / 0 Oral 240 / 240 Blood Product 250 / 250 250 / 250 Rbc Leuko Reduced Unit 250 / 250 [id number] Rbc Leuko Reduced Unit 250 / 250 [id number] Other: Urine Color Yellow Yellow Urine Appearance Clear Clear Comment Urine not measured, patient voided in the toilet Urine not measured, patient voided in the toilet Stool Size Moderate Stool Characteristics Brown Emesis Description None Voiding Methods Toilet Toilet Labs on day of discharge: Labs from last 24 hours 02/07/19 02/07/19 02/07/19 06:33 06:33 06:33 WBC 11.67 H RBC 3.44 L Hgb 10.2 L D Hct 31.2 L D MCV 90.7 D MCH 29.7 MCHC 32.7 RDW 17.1 H Plt Count 239 MPV 9.3 Immature Gran % 0.3 Neutrophils % 31.7 Lymphocytes % 60.2 Monocytes % 6.2 Eosinophils % 1.4 Basophils % 0.2 Absolute Neutrophils 3.70 Absolute Lymphocytes 7.03 H Absolute Monocytes 0.72 H Absolute Eosinophils 0.16 Absolute Basophils 0.02 Differential Comment RBC Morphology Anisocytosis PT 9.4 INR 0.9 APTT 23.8 Sodium 137 Potassium 4.0 Chloride 102 Carbon Dioxide 29.1 Anion Gap 5.9 BUN 12 Creatinine 0.74 Estimated GFR/1.73 m2 >= 60.00 Glucose 213 H D Calcium 8.5 Iron TIBC Transferrin % Sat Total Bilirubin 0.6 AST 15 ALT 19 Alkaline Phosphatase 117 H Total Protein 5.9 L Albumin 2.8 L Patient ABO/Rh Antibody Screen Crossmatch 02/06/19 02/06/19 02/06/19 13:27 13:25 13:20 WBC 13.46 H RBC 2.31 L Hgb 7.0 L Hct 22.2 L MCV 96.1 H MCH 30.3 MCHC 31.5 L RDW 15.6 H Plt Count 306 MPV 9.1 Immature Gran % 0.1 Neutrophils % 31.1 Lymphocytes % 62.3 Monocytes % 5.2 Eosinophils % 1.1 Basophils % 0.2 Absolute Neutrophils 4.19 Absolute Lymphocytes 8.39 H Absolute Monocytes 0.70 Absolute Eosinophils 0.15 Absolute Basophils 0.03 Differential Comment Agrees w/ instrument RBC Morphology See below Anisocytosis 1+ PT INR APTT Sodium 140 Potassium 3.6 Chloride 106 Carbon Dioxide 27.9 Anion Gap 6.1 BUN 13 Creatinine 0.71 Estimated GFR/1.73 m2 >= 60.00 Glucose 89 Calcium 8.6 Iron TIBC Transferrin % Sat Total Bilirubin 0.2 AST 13 L ALT 16 Alkaline Phosphatase 114 Total Protein 5.7 L Albumin 2.7 L Patient ABO/Rh A Negative Antibody Screen Negative Crossmatch See Detail 02/06/19 02/06/19 11:50 11:50 WBC 13.74 H RBC 2.41 L Hgb 7.3 L Hct 23.2 L MCV 96.3 H MCH 30.3 MCHC 31.5 L RDW 15.7 H Plt Count 311 MPV 8.9 Immature Gran % Neutrophils % Lymphocytes % Monocytes % Eosinophils % Basophils % Absolute Neutrophils Absolute Lymphocytes Absolute Monocytes Absolute Eosinophils Absolute Basophils Differential Comment RBC Morphology Anisocytosis PT INR APTT Sodium Potassium Chloride Carbon Dioxide Anion Gap BUN Creatinine Estimated GFR/1.73 m2 Glucose Calcium Iron 12 L TIBC 315 Transferrin % Sat 4 L Total Bilirubin AST ALT Alkaline Phosphatase Total Protein Albumin Patient ABO/Rh Antibody Screen Crossmatch [facility] Medical History Artificial cardiac pacemaker (Acute) COPD (chronic obstructive pulmonary disease) (Chronic) Gastric malignant neoplasm (Acute) Chronic iron deficiency anemia (Acute) Iron deficiency anemia due to chronic blood loss (Acute) Stroke (Chronic) Bilateral carotid artery disease (Chronic) Diabetes mellitus (Chronic) Counseling on health promotion and disease prevention (Acute) Weight loss (Acute 09/09/17) Type 2 diabetes mellitus with complication (Chronic 09/09/17) PVD (peripheral vascular disease) (Chronic 09/09/17) Iron deficiency anemia (Chronic 09/09/17) Gastrointestinal hemorrhage (Acute 09/09/17) Diabetic peripheral neuropathy (Chronic 09/09/17) CLL (chronic lymphocytic leukemia) (Chronic 09/09/17) Anemia (Acute) Fever (Acute) Micturition syncope (Chronic) Osteomyelitis of toe of left foot (Chronic) B12 deficiency (Chronic) Amputated toe of left foot (Acute) History of trigger finger (Acute) Surgical History Hx of CABG (Chronic) Family History Other Diabetes Heart disease Social History Smoking/Tobacco Use Status: Current every day Tobacco Type: cigarettes Alcohol Intake: former Drug use: Never Substance use type: does not use Do you feel safe at home: Yes Do you feel safe in your relationship?: Yes
--- NOTE | 2019-02-07 12:55 | PDOC.CMIN ---
- If Service Date Differs Date of service: 02/07/19 Time of Service: 12:55 Care Management Initial Assess REASON FOR HOSPITALIZATION:: Anemia, EGD 02/06/19 found to have a large gastric mass ? gastric cancer. He was admitted as observation overnight for transfusion and iron infusion. PAST MEDICAL HISTORY/PAST SURGICAL HISTORY:: Cardiac pacemaker, COPD, CVA, carotid artery disease, diabetes, peripheral vascular disease, iron deficiency anemia, diabetic peripheral neuropathy, chronic lymphatic leukemia, micturition syncope, osteomyelitis of the toe on the left foot, B12 deficiency. Surgical history: Amputation of second toe on the left foot, CABG in 2011. PREVIOUS FUNCTIONAL STATUS/SOCIAL/FAMILY SUPPORTS:: Ravi lives with his spouse Domitila in [facility] in his own home. 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 He states he is independent with ADLs. CURRENT FUNCTIONAL STATUS:: Ravi is alert and engaged with assisted living care manager during assessment. He was able to openly discuss the what if's related to the gastric mass identified. He is hopeful once he meets with his primary care, and the surgeon he will know more about his diagnosis and be able to make decisions related to his care. He states he did not expect the recent findings and was taken by surprise. 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 He states he has a good relationship with his primary care and Chip the pharmacist at [facility]. He states Chip listens to him often and provides support for his DM. ADVANCE DIRECTIVES:: Not on file he states he is a DNR which is also on his lic. Has patient been provided with information about the portal?: Yes CODE STATUS:: Full Code CODE STATUS COMMENT:: Reports he is a DNR INSURANCE COVERAGE / FINANCIAL ISSUES:: Medicare and [place] CURRENT HOME/COMMUNITY SERVICES/EQUIPMENT:: VA support, Pharmacist at [facility]. PRIMARY CARE PHYSICIAN:: POTENTIAL DISCHARGE NEEDS:: Follow-up with primary care, and surgeon as directed. PATIENT/FAMILY EDUCATION NEEDS:: Discharge education, limitations, follow-up plan of care, asked me 3 and self-management. ANTICIPATED BARRIERS TO DISCHARGE:: None identified. TRANSPORTATION:: Via private car with spouse at time of discharge. PLAN:: Ravi will be discharged home today. He has follow-up scheduled on 16 February. He states he wants to go home, he has a lot to think about and does not want to be in the hospital more than he has to. His family is supportive and at the bedside. No additional services at this time. CM to continue to provide support.
--- NOTE | 2019-02-07 13:14 | INITIAL_ITS ---
- If Service Date Differs Date of service: 02/07/19 Time of Service: 12:55 Care Management Initial Assess REASON FOR HOSPITALIZATION:: Anemia, EGD 02/06/19 found to have a large gastric mass ? gastric cancer. He was admitted as observation overnight for transfusion and iron infusion. PAST MEDICAL HISTORY/PAST SURGICAL HISTORY:: Cardiac pacemaker, COPD, CVA, carotid artery disease, diabetes, peripheral vascular disease, iron deficiency anemia, diabetic peripheral neuropathy, chronic lymphatic leukemia, micturition syncope, osteomyelitis of the toe on the left foot, B12 deficiency. Surgical history: Amputation of second toe on the left foot, CABG in 2011. PREVIOUS FUNCTIONAL STATUS/SOCIAL/FAMILY SUPPORTS:: Ravi lives with his spouse Domitila in [facility] in his own home. 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 He states he is independent with ADLs. CURRENT FUNCTIONAL STATUS:: Ravi is alert and engaged with health care legal assistant during assessment. He was able to openly discuss the what if's related to the gastric mass identified. He is hopeful once he meets with his primary care, and the surgeon he will know more about his diagnosis and be able to make decisions related to his care. He states he did not expect the recent findings and was taken by surprise. 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 He states he has a good relationship with his primary care and Chip the pharmacist at [facility]. He states Chip listens to him often and provides support for his DM. ADVANCE DIRECTIVES:: Not on file he states he is a DNR which is also on his lic. Has patient been provided with information about the portal?: Yes CODE STATUS:: Full Code CODE STATUS COMMENT:: Reports he is a DNR INSURANCE COVERAGE / FINANCIAL ISSUES:: Medicare and [place] CURRENT HOME/COMMUNITY SERVICES/EQUIPMENT:: VA support, Pharmacist at [facility]. PRIMARY CARE PHYSICIAN:: POTENTIAL DISCHARGE NEEDS:: Follow-up with primary care, and surgeon as directed. PATIENT/FAMILY EDUCATION NEEDS:: Discharge education, limitations, follow-up plan of care, asked me 3 and self-management. ANTICIPATED BARRIERS TO DISCHARGE:: None identified. TRANSPORTATION:: Via private car with spouse at time of discharge. PLAN:: Ravi will be discharged home today. He has follow-up scheduled on 16 February. He states he wants to go home, he has a lot to think about and does not want to be in the hospital more than he has to. His family is supportive and at the bedside. No additional services at this time. CM to continue to provide support.
== END 2019-02-07 13:53 | disposition home or self-care (01) ==
LOC: MS 14:23
PROVIDERS: Admitting Provider Surgery; PCP Family Medicine; Visit Provider Surgery
PROC: 0DB68ZX Excision of Stomach, Via Natural or Artificial Opening Endoscopic, Diagnostic (ICD-10-PCS; CPT 43239; principal; 2019-02-06 10:30)
DX: K91.61 Intraoperative hemorrhage and hematoma of a digestive system organ or structure complicating a digestive system procedure (principal); D62 Acute posthemorrhagic anemia; C16.0 Malignant neoplasm of cardia; R63.4 Abnormal weight loss; E11.43 Type 2 diabetes mellitus with diabetic autonomic (poly)neuropathy; E11.51 Type 2 diabetes mellitus with diabetic peripheral angiopathy without gangrene; C91.10 Chronic lymphocytic leukemia of B-cell type not having achieved remission; D63.0 Anemia in neoplastic disease; F17.210 Nicotine dependence, cigarettes, uncomplicated
CPT/HCPCS: 43239; 36415; 36430; 74177; 80053; 85027; 86850; 86900; 86901; 86920; 88305; 99217; 99220; 99222; 99238; NC; 71260; 83540; 83550; 85014; 85018; 85025; 85610; 85730; 88360; G0378; J1756; J1941; J3490; P9016

== ENCOUNTER 2019-02-16 14:22 | Outpatient (CLI) | payer OTHER, MEDICARE, SELFPAY ==
[2019-02-16 14:54] LABS: HCT 33.4 % (40.0-50.0); HGB 10.8 g/dL (13.5-17.5)
== END 2019-02-16 14:42 ==
PROVIDERS: PCP Family Medicine; Visit Provider Surgery
DX: D64.9 Anemia, unspecified (principal)
CPT/HCPCS: 86850; 86900; 86901; 85014; 85018

== ENCOUNTER 2019-03-06 07:03 | Day surgery (SDC) | payer OTHER, MEDICARE, SELFPAY ==
[2019-03-06 07:17] VITALS: BP 110/53; PULSE 84; RESP 18; TEMP 37.1; O2SAT 98
--- NOTE | 2019-03-06 07:55 | DI.RAD_ITS ---
SYMPTOM/DIAGNOSIS: STOMACH CA, LINE PLACEMENT LINE PLACEMENT IN OR: Fluoroscopy Time: 6.8 sec, 0.71 mgy Fluoroscopy was utilized by Dr. Knox during the placement of a central venous catheter. A single hard copy image shows the tip of the catheter in the region of the junction of the superior vena cava and right atrium. Please refer to the procedure report for complete details.
[2019-03-06] MEDS: Lactated Ringers 1,000 ML 80 ML IV (07:57)
[2019-03-06 09:10] LABS: HCT 28.5 % (40.0-50.0); HGB 9.4 g/dL (13.5-17.5); Mean Corpuscular Volume 91.1 fL (80-95); Mean Platelet Volume 9.3 fL (8.0-11.0); Platelet Count 385 x1000/uL (130-400); RBC 3.13 m/cumm (4.50-6.00); RBC Distribution Width 15.8 % (11.8-14.1); White Blood Cell Count 16.48 k/cumm (4.4-10.8)
[2019-03-06] MEDS: ceFAZolin 2 GM/50 ML BAG IVPB (09:15)
[2019-03-06] MEDS: Lidocaine 2% Multi-Dose 50 ML VIAL (09:26)
[2019-03-06] MEDS: Heparin 500 UNITS/5 ML SYRINGE ×2 (09:30→09:45)
[2019-03-06] MEDS: Normal Saline 50 ML (09:35)
[2019-03-06] MEDS: Gelatin SPONGE 12-7 MM PKT 1 EACH TP (09:42)
--- NOTE | 2019-03-06 09:59 | DI.RAD_ITS ---
SYMPTOM/DIAGNOSIS: LINE PLACEMENT, STOMACH CA PORTABLE AP CHEST: Comparison is made with 01/27/19. There has been interval placement of a left subclavian central venous catheter, the tip of the catheter is in good position at the junction of the superior vena cava and right atrium. No pneumothorax is seen. No effusion is present. Heart size and pulmonary vasculature are within normal limits. Sternal wires are in place.
--- NOTE | 2019-03-06 10:00 | W.PM.OP ---
Date of service: 03/06/19 Time of Service: 10:01 Operative Note DATE OF PROCEDURE: 03/06/19 PRE-OP DIAGNOSIS: met gastric cancer POST-OP DIAGNOSIS: same PROCEDURE: L subclavian power pot SURGEON: Sobia Knox ANESTHESIA: GETA ESTIMATED BLOOD LOSS: 10 PATHOLOGY: none sent COMPLICATIONS: None Patient was transported to: PACU Procedure Description: dictated
--- NOTE | 2019-03-06 10:08 | W.PM.OP ---
Operative Note DATE OF PROCEDURE: 03/06/19 PRE-OP DIAGNOSIS: met gastric cancer POST-OP DIAGNOSIS: same PROCEDURE: L subclavian power pot SURGEON: Sobia Knox ANESTHESIA: GETA ESTIMATED BLOOD LOSS: 10 PATHOLOGY: none sent Patient was transported to: PACU Implants: L subclavian power pot CXR: good position and no PTX
--- NOTE | 2019-03-06 10:30 | W.PM.DSUDISC ---
Discharge Plan Disposition Patient Disposition: HOME Condition: Good Discharge Details Reason For Visit: STOMACH CA/power port palcement Attending Provider: Sobia Knox Primary Care Provider: Curtis Chavarria Home Meds and New Rx's Prescriptions: Continued nitroglycerin 0.4 mg tablet, sublingual 0.4 mg SL ONCE Qty: 30 RF: 0 pen needle, diabetic [Lite Touch Insulin Pen [place]] 31 gauge x 5/16 needle .ROUTE .MEDSUPPLY Qty: 100 RF: 5 lancets [Accu-Chek Softclix Lancets] misc .ROUTE .MEDSUPPLY Qty: 200 RF: 4 FreeStyle Lite Strips strip .ROUTE .MEDSUPPLY Qty: 100 RF: 11 blood-glucose meter [FreeStyle [place] Lite] kit .ROUTE .MEDSUPPLY Qty: 1 RF: 0 atorvastatin [Lipitor] 80 MG tablet 80 mg PO DAILY RF: 0 glipizide 5 mg tablet 2.5 mg PO HS PRN (Reason: t- 1700) RF: 0 Lantus Solostar U-100 Insulin 100 unit/mL (3 mL) insulin pen 34 unit Sub-Q DAILY RF: 0 ferrous sulfate 325 mg (65 mg iron) tablet See Patient Comments PO DAILY RF: 0 multivitamin [Multiple Vitamins] Tablet 1 tab PO DAILY RF: 0 sucralfate 1 gram Tablet 1 g PO Q6H Qty: 120 RF: 1 metoprolol succinate 100 mg Tablet Extended Release 24 Hr 100 mg PO DIRECTED RF: 0 oxycodone 5 mg Tablet 5 mg PO QID PRN PRNRF: 0 lisinopril 20 mg Tablet 20 mg PO DIRECTED RF: 0 Discontinued aspirin [Aspir-81] 81 mg Tablet,Delayed Release (Dr/Ec) 81 mg PO DAILY RF: 0 Discharge Instructions Additional Instructions: Keep an ice bag on the incision. 20 minutes on and 20 minutes off. Ice keeps the swelling down and swelling causes pain. Make sure you wrap the ice pack in a towel and don't apply directly to the skin. -No driving x24 hrs or of you are taking narcotic pain medications. -Remove bulkey white dressing and tape in 24hrs. -Do Not remove any steri tapes (white tapes) that cover the incision. (these are under the bulky white dressing) -Follow-up with Dr. Knox in 1 week. -regular diet -no straining to move bowels -pain meds are very constipating: if you do not move your bowels daily take a dose of OTC milk of magnesia -It is ok to shower x 24hrs. No bathe, soaking, swimming or hot tubs -Keep wound clean and dry. Wash incision with soap and water daily. Pat dry, don't rub. -Protein supplements daily x2 daily. You may find that your appetite is smaller. Eat 3-6 small meals throughout the day. It is important to drink lots of water after surgery, 6-10 glasses a day. -If you were given an incentive spirometry (\breathing exersicer), continue to do this 10x/hour while awake. -We do want you up walking, at least 5-6 times per day. This is very important to prevent pneumonia and blood clots. You can climb stairs, take them slowly. -No lifting over 5 pounds w/ left arm for 1 week. After that- can resume all normal activities -You may find that you are very tired after surgery- this is normal. -please do not smoke for a minimum of 72 hours after surgery. -F/u w/ chemo infusion adn oncology as directed Stand Alone Forms: DSU Post op Instructions, Sayra Kemp (DSU) Activity:: no heavy lifting L arm x 1 wk Remove Dressings/Wound Care:: 24 hours Shower/Bathe:: 24 hours Diet:: As Tolerated Discharge Orders Discharge Orders: Discharge Order (Routine); Ordered 03/06/19 Ordered By: Sobia Knox Discharge Data Discharge Date/Time-TO BE ENTERED AT DEPARTURE: 03/06/19 11:35 Discharge Comment: DC'D HOME WITH FRIEND, JANET.
[2019-03-06 11:20] VITALS: BP 150/69; PULSE 81; RESP 18; TEMP 36.6; O2SAT 100
--- NOTE | 2019-03-06 14:18 | ROE_ITS ---
DATE OF PROCEDURE: March 06, 2019 PREOPERATIVE DIAGNOSIS: Metastatic gastric cancer/need for central venous access for chemo. POSTOPERATIVE DIAGNOSIS: Same. PROCEDURE: Insertion of left subclavian Power Port. SURGEON: Sobia Knox D.O. ANESTHESIA: General. ESTIMATED BLOOD LOSS: 10 cc's CONDITION: The patient tolerated the procedure well without complication. INDICATION FOR PROCEDURE: Mr. Alvarez is a 73-year-old male who first presented with anemia and was fo und to have metastatic gastric cancer. He is here today for Power Port placement in anticipation of chemo. Informed consent was obtained explaining risks and benefits of the procedure, including but n ot limited to bleeding, infection, pneumonia, blood clots, damage to vein, artery or nerve, chronic n umbness, chronic pain, pneumothorax, infections and thrombosis, which would necessitate port change. The patient is marked in preop. PROCEDURE DESCRIPTION: The patient was brought to the operating room suite and placed in the supine position. A roll is placed under the left shoulder. He was placed in a steep Trendelenburg position . He was prepped and draped in the usual sterile fashion using a ChloraPrep scrub solution. 5 cc's of 1% Lidocaine plain was used for local anesthetization. A time-out is done. He did receive preop antibiotics. A Cook needle is used to cannulate the left subclavian vein with return of dark red, non-pulsatile bl ood. The guidewire is easily over-inserted over the needle and the needle was removed. The guidewir e is inserted through the needle. Proper positioning was ensured with fluoroscopy. The needle was r emoved. The sheath and dilator are inserted over the wire, keeping good control of the guidewire at all times. The dilator and the guidewire were removed. Proper positioning was again ensured with fl uoroscopy. The catheter is then placed through the sheath. Again proper positioning is ensured with fluoroscopy. The sheath is removed. The port is cut and attached to the hub. Dark red, non-pulsat ile blood flow is aspirated and the port is flushed with heparinized saline. Again appropriate posit ioning is ensured with fluoroscopy. A pocket is then created for the hub using Metzenbaum scissors. There is a small arterial bleeder; a #3-0 Vicryl stitch is then placed across this and a piece of Ge lfoam and the bleeding abates. The hub is sewn into the anterior chest wall using a #2-0 Prolene. The pocket is flushed. The subcutaneous tissue and skin is closed with #4-0 Monocryl in a running valladares bcuticular fashion. Steri tape and sterile dressings are applied. A portable chest x-ray is pending at this time. The patient tolerated the procedure well without complication and transferred to the recovery room in stable condition. cc: Curtis Chavarria M.D.
--- NOTE | 2019-03-08 11:47 | PGE_ITS ---
Date of Service Date of service: 03/08/19 Time of Service: 11:47 Assessment and Plan (1) Liver metastases: Current visit: No Status: Acute Bx resutls from [facility] [place] were + for adenocarcinoma Objective Objective Clinical Data: Vital Signs Temperature 36.6 C 03/06/19 11:20 Pulse 81 03/06/19 11:20 Pulse Rhythm Regular 03/06/19 07:17 Respiratory Rate 18 03/06/19 11:20 Respiratory Depth Normal 03/06/19 07:17 Blood Pressure 150/69 H 03/06/19 11:20 Pulse Oximetry 100 03/06/19 11:20 Oxygen Delivery Method Room Air 03/06/19 11:20 Oxygen Flow Rate 0 03/06/19 07:17 Pain Level 0 03/06/19 11:20 Laboratory Results WBC 16.48 k/cumm (4.4-10.8) H 03/06/19 07:45 RBC 3.13 m/cumm (4.50-6.00) L 03/06/19 07:45 Hgb 9.4 g/dL (13.5-17.5) L 03/06/19 07:45 Hct 28.5 % (40.0-50.0) L 03/06/19 07:45 MCV 91.1 fL (80-95) 03/06/19 07:45 MCH 30.0 pg (27.0-33.0) 03/06/19 07:45 MCHC 33.0 g/dL (32.0-36.0) 03/06/19 07:45 RDW 15.8 % (11.8-14.1) H 03/06/19 07:45 Plt Count 385 x1000/uL (130-400) D 03/06/19 07:45 MPV 9.3 fL (8.0-11.0) 03/06/19 07:45 Patient ABO/Rh A Negative 03/06/19 07:45 Antibody Screen Negative 03/06/19 07:45
== END 2019-03-06 11:35 | disposition home or self-care (01) ==
PROVIDERS: PCP Family Medicine; Visit Provider Surgery
PROC: (CPT 36561; principal; 2019-03-06 08:15)
DX: C16.1 Malignant neoplasm of fundus of stomach (principal); Z45.2 Encounter for adjustment and management of vascular access device; C79.9 Secondary malignant neoplasm of unspecified site
CPT/HCPCS: 36561; 77001; 36415; 71045; 85027; 86850; 86900; 86901; NC; C1788; J0690; J1100; J1885; J2250; J2405; J3010

== ENCOUNTER 2019-03-10 16:07 | Outpatient (CLI) | payer OTHER, MEDICARE, SELFPAY ==
[2019-03-10 16:38] LABS: HCT 23.1 % (40.0-50.0); HGB 7.5 g/dL (13.5-17.5); Mean Corp. HGB Concentration 32.5 g/dL (32.0-36.0); Mean Corpuscular Hemoglobin 30.1 pg (27.0-33.0); Mean Corpuscular Volume 92.8 fL (80-95); Mean Platelet Volume 8.8 fL (8.0-11.0); Platelet Count 328 x1000/uL (130-400); RBC 2.49 m/cumm (4.50-6.00); RBC Distribution Width 16.6 % (11.8-14.1); White Blood Cell Count 13.27 k/cumm (4.4-10.8)
[2019-03-10 19:55] LABS: Hemoglobin A1C 8.2 % (4.5-6.2)
== END 2019-03-10 16:27 ==
PROVIDERS: PCP Family Medicine; Visit Provider Family Medicine
DX: C78.7 Secondary malignant neoplasm of liver and intrahepatic bile duct (principal); E11.9 Type 2 diabetes mellitus without complications
CPT/HCPCS: 36415; 85027; 83036

== ENCOUNTER 2019-03-11 18:12 | Observation (INO) | payer OTHER, SELFPAY ==
--- NOTE | 2019-03-11 18:26 | W.ED.GENAD ---
Discharge Plan Disposition Patient Disposition: [facility] INPATIENT Condition: Good Discharge Details Chief Complaint: GenMedical Clinical Impression: General weakness, Anemia, Gastric malignant neoplasm Primary Care Provider: Curtis Chavarria ED Provider: Jeffrey Bangura Edwards Meds and New Rx's Prescriptions: No Action nitroglycerin 0.4 mg tablet, sublingual 0.4 mg SL ONCE Qty: 30 RF: 0 pen needle, diabetic [Lite Touch Insulin Pen [place]] 31 gauge x 5/16 needle .ROUTE .MEDSUPPLY Qty: 100 RF: 5 lancets [Accu-Chek Softclix Lancets] misc .ROUTE .MEDSUPPLY Qty: 200 RF: 4 FreeStyle Lite Strips strip .ROUTE .MEDSUPPLY Qty: 100 RF: 11 blood-glucose meter [FreeStyle [place] Lite] kit .ROUTE .MEDSUPPLY Qty: 1 RF: 0 glipizide 5 mg tablet 2.5 mg PO HS PRN (Reason: t-1 1700) RF: 0 Lantus Solostar U-100 Insulin 100 unit/mL (3 mL) insulin pen 34 unit Sub-Q DAILY RF: 0 ferrous sulfate 325 mg (65 mg iron) tablet See Patient Comments PO DAILY RF: 0 multivitamin [Multiple Vitamins] Tablet 1 tab PO DAILY RF: 0 sucralfate 1 gram Tablet 1 g PO Q6H Qty: 120 RF: 1 metoprolol succinate 100 mg Tablet Extended Release 24 Hr 100 mg PO DAILY RF: 0 Medical Decision Making <Ranjan Simeon MD - Last Filed: 03/11/19 18:41> 73 yo male with multiple medical problems including recently diagnosed metastatic gastric cancer for which he now has a left subclavian port and is due to have chemotherapy started on Saturday per pt, comes in with general weakness. HE states he was supposed t o have a transfusion yesterday for a hgb of 7.5 but the order wasn't placed, and was told to come here today. Denies chest pain,fevers or sob. He is caox4 without focal deficits. Rectal exam shows dark brown heme positive stool, no marianna blood. I suspect his symptoms are due to his anemia and will check cbc and also eval for electrolyte abnormality. No infectious symptoms to suggest underlying sepsis. No focal neuro deficits so doubt cva. pt signed out to Dr. Willem pending lab results Differential Diagnosis anemia, hyponatremia <Jeffrey Bangura MD - Last Filed: 03/11/19 21:17> Patient laboratory studies reviewed. Other than significant anemia with a hemoglobin of 6.5 his other labs remain baseline and unchanged. Patient is ordered for 3 units of blood to be transfused. This will take most of the night if not all of it. Case discussed with hospitalist for observation admission for transfusion. Patient to be admitted to [facility] overnight and receive his blood transfusions. Patient is aware of plan admission and agreeable. Patient is stable at this time. Lab Data Lab results reviewed: Yes I reviewed the patient's lab results. HPI <Ranjan Simeon MD - Last Filed: 03/11/19 18:41> General Mode of arrival: wheelchair. Date/Time Provider Initiated Documentation: 03/11/19 18:14. Limitations to Documentation: no limitations. Information obtained by: patient. History of Present Illness 73 year old M presents to the emergency department with the chief complaint of general weakness, described as moderate, Patient started experiencing this week(s) (3) and it has been constant. No relieving factors improve symptom(s), No exacerbating factors reported . Patient notes no other symptoms.. Patient did receive the following treatments prior to arrival, none Related Data Home Medications Medication Instructions Recorded Confirmed nitroglycerin 0.4 mg sublingual 0.4 mg SL ONCE #30 tab 09/08/18 03/11/19 tablet lancets #200 each 10/23/18 02/16/19 pen needle, diabetic 31 gauge x #100 each 10/31/18 02/16/1902/19 blood sugar diagnostic strips #100 each 11/07/18 02/16/19 blood-glucose meter kit #1 each 11/07/18 02/16/19 Lantus Solostar U-100 Insulin 34 unit SUB-Q DAILY 12/24/18 03/11/19 glipizide 5 mg tablet 2.5 mg PO HS PRN 12/30/18 03/11/19 ferrous sulfate 325 mg (65 mg See Rx Instructions PO DAILY tab 01/13/19 03/11/19 iron) tablet multivitamin [Multiple Vitamins] 1 tab PO DAILY 02/04/19 03/11/19 sucralfate 1 g PO Q6H #120 tab 02/07/19 03/11/19 metoprolol succinate 100 mg PO DAILY 03/05/19 03/11/19 Previous Rx's Medication Instructions Recorded nitroglycerin 0.4 mg sublingual 0.4 mg SL ONCE #30 tab 09/08/18 tablet lancets #200 each 10/23/18 pen needle, diabetic 31 gauge x #100 each 10/31/1802/19 blood sugar diagnostic strips #100 each 11/07/18 blood-glucose meter kit #1 each 11/07/18 sucralfate 1 g PO Q6H #120 tab 02/07/19 Allergies Allergy/AdvReac Type Severity Reaction Status Date / Time No Known Allergies Allergy Verified 03/11/19 18:33 General CORI: 4 Review of Systems <Ranjan Simeon MD - Last Filed: 03/11/19 18:41> Review of Systems All systems reviewed & are unremarkable except as noted in HPI and below Constitutional Denies chills and Denies fever(s) Cardiovascular Denies chest pain and Denies dyspnea Respiratory Denies cough and Denies dyspnea Gastrointestinal Denies abdominal pain, Denies nausea and Denies vomiting Integumentary/Breasts Denies rash PFSH <Ranjan Simeon MD - Last Filed: 03/11/19 18:41> Medical History Liver metastases (Acute) CAD (coronary artery disease) (Chronic) Artificial cardiac pacemaker (Acute) COPD (chronic obstructive pulmonary disease) (Chronic) Gastric malignant neoplasm (Acute) Chronic iron deficiency anemia (Acute) Iron deficiency anemia due to chronic blood loss (Acute) Stroke (Chronic) Bilateral carotid artery disease (Chronic) Diabetes mellitus (Chronic) Counseling on health promotion and disease prevention (Acute) Weight loss (Acute 09/09/17) Type 2 diabetes mellitus with complication (Chronic 09/09/17) PVD (peripheral vascular disease) (Chronic 09/09/17) Iron deficiency anemia (Chronic 09/09/17) Gastrointestinal hemorrhage (Acute 09/09/17) Diabetic peripheral neuropathy (Chronic 09/09/17) CLL (chronic lymphocytic leukemia) (Chronic 09/09/17) Anemia (Acute) Fever (Acute) Micturition syncope (Chronic) Osteomyelitis of toe of left foot (Chronic) B12 deficiency (Chronic) Amputated toe of left foot (Acute) History of trigger finger (Acute) Surgical History Hx of CABG (Chronic) Social History Smoking/Tobacco Use Status: Current every day Tobacco Type: cigarettes Alcohol Intake: former Drug use: Never Substance use type: does not use Do you feel safe at home: Yes Do you feel safe in your relationship?: Yes Exam <Ranjna Simeon MD - Last Filed: 03/11/19 18:41> Const General: no acute distress Orientation: alert HENMT Head: normal to inspection Ears: external ears normal General nose exam: external nose normal Mouth: moist mucous membranes Eyes General: appearance normal, both eyes and all related structures Neck Neck: normal visual inspection Resp Effort & Inspection: normal respiratory effort and able to speak in complete sentences Cardio Rate: regular rate Skin General skin exam: no rashes or lesions noted Neuro General: alert and oriented x3 Extrem General: normal to inspection Psych Mental Status: mental status grossly normal Sign Out <Ranjan Simeon MD - Last Filed: 03/11/19 18:41> Sign Out Data: Sign Out Comment: follow up on labs Last updated by Ranjan Simeon MD at 03/11/19 18:34
[2019-03-11 18:28] VITALS: PULSE 85; RESP 18; TEMP 37.5; O2SAT 100
--- NOTE | 2019-03-11 18:30 | ED.GENADUL_ITS ---
Discharge Plan Disposition Patient Disposition: [facility] INPATIENT Condition: Good Discharge Details Chief Complaint: GenMedical Clinical Impression: General weakness, Anemia, Gastric malignant neoplasm Primary Care Provider: Curtis Chavarria ED Provider: Jeffrey Bangura Bryce Meds and New Rx's Prescriptions: No Action nitroglycerin 0.4 mg tablet, sublingual 0.4 mg SL ONCE Qty: 30 RF: 0 pen needle, diabetic [Lite Touch Insulin Pen [place]] 31 gauge x 5/16 needle .ROUTE .MEDSUPPLY Qty: 100 RF: 5 lancets [Accu-Chek Softclix Lancets] misc .ROUTE .MEDSUPPLY Qty: 200 RF: 4 FreeStyle Lite Strips strip .ROUTE .MEDSUPPLY Qty: 100 RF: 11 blood-glucose meter [FreeStyle [place] Lite] kit .ROUTE .MEDSUPPLY Qty: 1 RF: 0 glipizide 5 mg tablet 2.5 mg PO HS PRN (Reason: t-1 1700) RF: 0 Lantus Solostar U-100 Insulin 100 unit/mL (3 mL) insulin pen 34 unit Sub-Q DAILY RF: 0 ferrous sulfate 325 mg (65 mg iron) tablet See Patient Comments PO DAILY RF: 0 multivitamin [Multiple Vitamins] Tablet 1 tab PO DAILY RF: 0 sucralfate 1 gram Tablet 1 g PO Q6H Qty: 120 RF: 1 metoprolol succinate 100 mg Tablet Extended Release 24 Hr 100 mg PO DAILY RF: 0 Medical Decision Making <Ranjan Simeon MD - Last Filed: 03/11/19 18:41> 73 yo male with multiple medical problems including recently diagnosed metastatic gastric cancer for which he now has a left subclavian port and is due to have chemotherapy started on Saturday per pt, comes in with general weakness. HE states he was supposed t o have a transfusion yesterday for a hgb of 7.5 but the order wasn't placed, and was told to come here today. Denies chest pain,fevers or sob. He is caox4 without focal deficits. Rectal exam shows dark brown heme positive stool, no marianna blood. I suspect his symptoms are due to his anemia and will check cbc and also eval for electrolyte abnormality. No infectious symptoms to suggest underlying sepsis. No focal neuro deficits so doubt cva. pt signed out to Dr. Willem pending lab results Differential Diagnosis anemia, hyponatremia <Jeffrey Bangura MD - Last Filed: 03/11/19 21:17> Patient laboratory studies reviewed. Other than significant anemia with a hemoglobin of 6.5 his other labs remain baseline and unchanged. Patient is ordered for 3 units of blood to be transfused. This will take most of the night if not all of it. Case discussed with hospitalist for observation admission for transfusion. Patient to be admitted to [facility] overnight and receive his blood transfusions. Patient is aware of plan admission and agreeable. Patient is stable at this time. Lab Data Lab results reviewed: Yes I reviewed the patient's lab results. HPI <Ranjan Simeon MD - Last Filed: 03/11/19 18:41> General Mode of arrival: wheelchair . Date/Time Provider Initiated Documentation: 03/11/19 18:14 . Limitations to Documentation: no limitations . Information obtained by: patient . History of Present Illness 73 year old M presents to the emergency department with the chief complaint of general weakness, described as moderate, Patient started experiencing this week(s) (3) and it has been constant. No relieving factors improve symptom(s), No exacerbating factors reported . Patient notes no other symptoms.. Patient did receive the following treatments prior to arrival, none Related Data Home Medications Medication Instructions Recorded Confirmed nitroglycerin 0.4 mg sublingual 0.4 mg SL ONCE #30 tab 09/08/18 03/11/19 tablet lancets #200 each 10/23/18 02/16/19 pen needle, diabetic 31 gauge x #100 each 10/31/18 02/16/1902/19 blood sugar diagnostic strips #100 each 11/07/18 02/16/19 blood-glucose meter kit #1 each 11/07/18 02/16/19 Lantus Solostar U-100 Insulin 34 unit SUB-Q DAILY 12/24/18 03/11/19 glipizide 5 mg tablet 2.5 mg PO HS PRN 12/30/18 03/11/19 ferrous sulfate 325 mg (65 mg See Rx Instructions PO DAILY tab 01/13/19 03/11/19 iron) tablet multivitamin [Multiple Vitamins] 1 tab PO DAILY 02/04/19 03/11/19 sucralfate 1 g PO Q6H #120 tab 02/07/19 03/11/19 metoprolol succinate 100 mg PO DAILY 03/05/19 03/11/19 Previous Rx's Medication Instructions Recorded nitroglycerin 0.4 mg sublingual 0.4 mg SL ONCE #30 tab 09/08/18 tablet lancets #200 each 10/23/18 pen needle, diabetic 31 gauge x #100 each 10/31/1802/19 blood sugar diagnostic strips #100 each 11/07/18 blood-glucose meter kit #1 each 11/07/18 sucralfate 1 g PO Q6H #120 tab 02/07/19 Allergies Allergy/AdvReac Type Severity Reaction Status Date / Time No Known Allergies Allergy Verified 03/11/19 18:33 General CORI: 4 Review of Systems <Ranjan Simeon MD - Last Filed: 03/11/19 18:41> Review of Systems All systems reviewed & are unremarkable except as noted in HPI and below Constitutional Denies chills and Denies fever(s) Cardiovascular Denies chest pain and Denies dyspnea Respiratory Denies cough and Denies dyspnea Gastrointestinal Denies abdominal pain, Denies nausea and Denies vomiting Integumentary/Breasts Denies rash PFSH <Ranjan Simeon MD - Last Filed: 03/11/19 18:41> Medical History Liver metastases (Acute) CAD (coronary artery disease) (Chronic) Artificial cardiac pacemaker (Acute) COPD (chronic obstructive pulmonary disease) (Chronic) Gastric malignant neoplasm (Acute) Chronic iron deficiency anemia (Acute) Iron deficiency anemia due to chronic blood loss (Acute) Stroke (Chronic) Bilateral carotid artery disease (Chronic) Diabetes mellitus (Chronic) Counseling on health promotion and disease prevention (Acute) Weight loss (Acute 09/09/17) Type 2 diabetes mellitus with complication (Chronic 09/09/17) PVD (peripheral vascular disease) (Chronic 09/09/17) Iron deficiency anemia (Chronic 09/09/17) Gastrointestinal hemorrhage (Acute 09/09/17) Diabetic peripheral neuropathy (Chronic 09/09/17) CLL (chronic lymphocytic leukemia) (Chronic 09/09/17) Anemia (Acute) Fever (Acute) Micturition syncope (Chronic) Osteomyelitis of toe of left foot (Chronic) B12 deficiency (Chronic) Amputated toe of left foot (Acute) History of trigger finger (Acute) Surgical History Hx of CABG (Chronic) Social History Smoking/Tobacco Use Status: Current every day Tobacco Type: cigarettes Alcohol Intake: former Drug use: Never Substance use type: does not use Do you feel safe at home: Yes Do you feel safe in your relationship?: Yes Exam <Ranjan Simeon MD - Last Filed: 03/11/19 18:41> Const General: no acute distress Orientation: alert HENMT Head: normal to inspection Ears: external ears normal General nose exam: external nose normal Mouth: moist mucous membranes Eyes General: appearance normal, both eyes and all related structures Neck Neck: normal visual inspection Resp Effort & Inspection: normal respiratory effort and able to speak in complete sentences Cardio Rate: regular rate Skin General skin exam: no rashes or lesions noted Neuro General: alert and oriented x3 Extrem General: normal to inspection Psych Mental Status: mental status grossly normal Sign Out <Ranjan Simeon MD - Last Filed: 03/11/19 18:41> Sign Out Data: Sign Out Comment: follow up on labs Last updated by Ranjan Simeon MD at 03/11/19 18:34
[2019-03-11 19:20] LABS: Abs Immature Grans 0.02 k/cumm (0.0-0.09); Mean Corp. HGB Concentration 33.2 g/dL (32.0-36.0); Mean Corpuscular Hemoglobin 30.7 pg (27.0-33.0); Mean Corpuscular Volume 92.5 fL (80-95); Mean Platelet Volume 8.7 fL (8.0-11.0); Platelet Count 278 x1000/uL (130-400); RBC 2.12 m/cumm (4.50-6.00); RBC Distribution Width 16.7 % (11.8-14.1); White Blood Cell Count 11.21 k/cumm (4.4-10.8)
[2019-03-11 19:32] LABS: ALT 16 U/L (12-78); AST 11 U/L (15-37); Albumin 2.8 g/dL (3.4-5.0); Alkaline Phosphatase 101 U/L (46-116); Anion Gap 6.4 mmol/L (3-11); BUN 22 mg/dL (7-18); Bilirubin, Total 0.3 mg/dL (0.2-1.0); CO2 27.6 mmol/L (21.0-32.0); CREATININE 0.77 mg/dL (0.70-1.30); Calcium 9.1 mg/dL (8.5-10.1); Chloride 99 mmol/L (98-107); Glucose 266 mg/dL (70-100); Lipase 42 U/L (73-393); Potassium 3.7 mmol/L (3.5-5.1); Sodium 133 mmol/L (136-145); Total Protein 5.9 g/dL (6.4-8.2)
[2019-03-11 19:42] LABS: HCT 19.6 % (40.0-50.0); HGB 6.5 g/dL (13.5-17.5)
[2019-03-11 19:45] LABS: Absolute Lymphocyte Count 6.39 k/cumm (1.2-3.4); Absolute Monocyte Count 0.34 k/cumm (0.11-0.7); Absolute Neutrophil Count 4.15 k/cumm (1.2-6.7); Atypical Lymphocytes % 0
[2019-03-11 19:46] LABS: Absolute Basophil Count 0.11 k/cumm (0.0-0.2); Absolute Eosinophil Count 0.22 k/cumm (0.0-0.7); Basophilic Stippling Present; Diff Comment Manual Differential; Microcytosis 1+; Polychromasia Present
[2019-03-11 20:30] LABS: PTT Activated 26.1 sec (21.0-31.4); Prothrombin Time 9.7 sec (9.3-11.0)
[2019-03-11] MEDS: Normal Saline Flush 10 ML SYR IVP (22:50)
[2019-03-11 23:03] VITALS: BP 131/53; PULSE 79; RESP 16; TEMP 36.4; O2SAT 98
[2019-03-11 23:18] VITALS: BP 111/62; PULSE 79; RESP 17; TEMP 36.3; O2SAT 100
[2019-03-11] MEDS: Sucralfate 1 GM TAB (23:43)
[2019-03-11 23:48] VITALS: BP 114/52; PULSE 74; RESP 18; TEMP 37.2; O2SAT 100
[2019-03-11 23:51] VITALS: BP 114/52; PULSE 74; RESP 18; TEMP 37.2; O2SAT 100
--- NOTE | 2019-03-11 23:51 | W.PM.HP.N ---
Date of service: 03/11/19 Time of Service: 23:56 Assessment and Plan (1) Chronic iron deficiency anemia: Current visit: No Status: Acute will transfuse him 2 to 3 units to get his hemoglobin over 8 gm. (2) Gastric malignant neoplasm: Current visit: No Status: Acute continue GI protection for chronic UGI bleeding; proceed w/ CTX this Saturday (3) Type 2 diabetes mellitus with complication: Current visit: No Status: Chronic monitor glucose and give his usual dose of glyburide and Lantus; cover glucose elevations w sliding scale Novolog. History of Present Illness Chief Complaint: anemia Narrative: 73-year-old male with a history of metastatic gastric carcinoma, CLL, diabetes mellitus type 2, coronary artery disease status post coronary artery bypass graft, previous CVA who now presents emergency department for blood transfusion. He was supposed to be transfusion yesterday for hemoglobin of 7.5 but for unclear reasons this was never carried out yesterday. He has been feeling weak and lightheaded. He was evaluated in the emergency department by Dr. Ranjan Simeon did a rectal exam and found that he had dark brown heme positive stools but no marianna blood. CBC was then checked and shown that his anemia had progressed to a hemoglobin of 6.5 g hematocrit 19.6%. Platelet count is normal at 278,000 and his white blood cell count is minimally elevated at 11,200. Patient is being admitted overnight on observation status while he receives transfusions. Dr. Jeffrey Bangura who followed up with the patient in the emergency department ordered 3 units of packed red blood cells be transfused overnight. Patient is desiring to leave the hospital soon as the transfusion is complete as he has a campground to run. He is scheduled to start chemotherapy treatment on Saturday for his metastatic cancer. Review of Systems Constitutional Reports anorexia, Reports malaise, Reports poor appetite, Reports weakness and Reports weight loss Cardiovascular Reports system reviewed and no additional complaints, except as docu Respiratory Reports system reviewed and no additional complaints, except as docu Gastrointestinal Denies abdominal pain, Reports melena, Denies hematochezia, Reports early satiety, Denies nausea, Denies vomiting and Denies hematemesis Genitourinary Reports system reviewed and no additional complaints, except as docu Musculoskeletal Reports system reviewed and no additional complaints, except as docu Neurologic Reports weakness Hematologic/Lymphatic Reports easy bleeding, Reports easy bruising and Reports lymphadenopathy PFSH Medical History Liver metastases (Acute) CAD (coronary artery disease) (Chronic) Artificial cardiac pacemaker (Acute) COPD (chronic obstructive pulmonary disease) (Chronic) Gastric malignant neoplasm (Acute) Chronic iron deficiency anemia (Acute) Iron deficiency anemia due to chronic blood loss (Acute) Stroke (Chronic) Bilateral carotid artery disease (Chronic) Diabetes mellitus (Chronic) Counseling on health promotion and disease prevention (Acute) Weight loss (Acute 09/09/17) Type 2 diabetes mellitus with complication (Chronic 09/09/17) PVD (peripheral vascular disease) (Chronic 09/09/17) Iron deficiency anemia (Chronic 09/09/17) Gastrointestinal hemorrhage (Acute 09/09/17) Diabetic peripheral neuropathy (Chronic 09/09/17) CLL (chronic lymphocytic leukemia) (Chronic 09/09/17) Anemia (Acute) Fever (Acute) Micturition syncope (Chronic) Osteomyelitis of toe of left foot (Chronic) B12 deficiency (Chronic) Amputated toe of left foot (Acute) History of trigger finger (Acute) Surgical History History of esophagogastroduodenoscopy (EGD) (Resolved 02/06/19) Hx of CABG (Chronic) Family History Other Diabetes Heart disease Social History Smoking/Tobacco Use Status: Current every day Tobacco Type: cigarettes Alcohol Intake: former Drug use: Never Substance use type: does not use Do you feel safe at home: Yes Do you feel safe in your relationship?: Yes Meds Home Medications Medication Instructions Recorded Confirmed Type nitroglycerin 0.4 mg sublingual 0.4 mg SL ONCE #30 tab 09/08/18 03/11/19 Rx tablet lancets #200 each 10/23/18 02/16/19 Rx pen needle, diabetic 31 gauge x #100 each 10/31/18 02/16/19 Rx 5/16 blood sugar diagnostic strips #100 each 11/07/18 02/16/19 Rx blood-glucose meter kit #1 each 11/07/18 02/16/19 Rx Lantus Solostar U-100 Insulin 34 unit SUB-Q DAILY 12/24/18 03/11/19 History glipizide 5 mg tablet 2.5 mg PO HS PRN 12/30/18 03/11/19 History ferrous sulfate 325 mg (65 mg See Rx Instructions PO DAILY tab 01/13/19 03/11/19 History iron) tablet multivitamin [Multiple Vitamins] 1 tab PO DAILY 02/04/19 03/11/19 History sucralfate 1 g PO Q6H #120 tab 02/07/19 03/11/19 Rx metoprolol succinate 100 mg PO DAILY 03/05/19 03/11/19 History Allergies Allergy/AdvReac Type Severity Reaction Status Date / Time No Known Allergies Allergy Verified 03/11/19 18:33 Exam Const General: cooperative, no acute distress, frail appearing and ill appearing chronically Nutritional Appearance: underweight Orientation: alert, awake and oriented x3 Eyes General: appearance normal, both eyes and all related structures Alignment and Position: alignment normal Periorbital: periorbital findings normal Eyelids: eyelids normal Conjunctivae: conjunctival abnormality bilaterally pallor Sclera: sclerae normal Pupils: PERRL EOM: EOM intact bilaterally Neck Neck: normal visual inspection, full ROM and no JVD Carotids: delayed carotid upstroke and bruit bilaterally Lymphatic: lymphadenopathy right anterior cervical Chest Chest: abnormal inspection of the chest scar (healed sternal wound from CABG) Resp Effort & Inspection: normal respiratory effort and able to speak in complete sentences Auscultation: clear to auscultation bilaterally Cardio Jugular venous pressure: no JVD Palpation: normal PMI Rate: regular rate Rhythm: regular rhythm Heart Sounds: S1 normal, S2 normal and murmur systolic early, III/ and at the apex Pulses: other (absent left pedal pulses, very weak R. pedal pulses; no cyanosis) GI Inspection: scaphoid Palpation: soft Percussion: normal to percussion Auscultation: normal bowel sounds Neuro General: alert, awake, oriented x3, moves all extremities and no focal motor deficits Cranial Nerves: EOM intact bilaterally, no nystagmus, facial strength normal and tongue midline Cognition: normal cognition Speech: speech normal Motor: muscle tone normal throughout, strength 5/5 throughout and no movement abnormalities noted Sensory Exam: no sensory deficits noted Extrem General: full ROM, no joint enlargement and no clubbing, cyanosis or edema Psych Appearance: grossly normal Mental Status: mental status grossly normal Speech and Movement: speech and movement normal Mood: congruent mood Affect: normal affect Attitude: cooperative Thought Process: normal Thought Content: normal Insight: insight good Results Labs : 03/11/19 19:07 03/11/19 19:07 Laboratory Results - last 24 hr 03/11/19 03/11/19 03/11/19 18:21 19:07 19:07 WBC 11.21 H RBC 2.12 L Hgb 6.5 L* Hct 19.6 L* MCV 92.5 MCH 30.7 MCHC 33.2 RDW 16.7 H Plt Count 278 MPV 8.7 Immature Gran % 0.0 Neutrophils % 37.0 Band Neutrophils % 0.0 Lymphocytes % 57.0 Atypical Lymphs % 0 Monocytes % 3.0 Eosinophils % 2.0 Basophils % 1.0 Absolute Neutrophils 4.15 Absolute Lymphocytes 6.39 H Absolute Monocytes 0.34 Absolute Eosinophils 0.22 Absolute Basophils 0.11 Differential Comment Manual differential RBC Morphology See below Polychromasia Present Basophilic Stippling Present Microcytosis 1+ PT 9.7 INR 1.0 APTT 26.1 Sodium 133 L Potassium 3.7 Chloride 99 Carbon Dioxide 27.6 Anion Gap 6.4 BUN 22 H Creatinine 0.77 Estimated GFR/1.73 m2 >= 60.00 Glucose 266 H Calcium 9.1 Total Bilirubin 0.3 AST 11 L ALT 16 Alkaline Phosphatase 101 Total Protein 5.9 L Albumin 2.8 L Lipase 42 L Patient ABO/Rh Antibody Screen Crossmatch 03/11/19 19:42 WBC RBC Hgb Hct MCV MCH MCHC RDW Plt Count MPV Immature Gran % Neutrophils % Band Neutrophils % Lymphocytes % Atypical Lymphs % Monocytes % Eosinophils % Basophils % Absolute Neutrophils Absolute Lymphocytes Absolute Monocytes Absolute Eosinophils Absolute Basophils Differential Comment RBC Morphology Polychromasia Basophilic Stippling Microcytosis PT INR APTT Sodium Potassium Chloride Carbon Dioxide Anion Gap BUN Creatinine Estimated GFR/1.73 m2 Glucose Calcium Total Bilirubin AST ALT Alkaline Phosphatase Total Protein Albumin Lipase Patient ABO/Rh A Negative Antibody Screen Negative Crossmatch See Detail Last Vital Signs Temp 37.2 C 03/11/19 23:48 Pulse 74 03/11/19 23:48 Resp 18 03/11/19 23:48 BP 114/52 L 03/11/19 23:48 Pulse Ox 100 03/11/19 23:48
[2019-03-12] VITALS (12 sets, daily range): BP systolic 125–180; BP diastolic 54–82; PULSE 70–79; RESP 16–20; TEMP 37.1–37.6; O2SAT 95–100
[2019-03-12] MEDS: Normal Saline Flush 10 ML SYR IVP ×2 (07:22→11:38)
[2019-03-12] MEDS: Sucralfate 1 GM TAB PO (07:22)
[2019-03-12] MEDS: Metoprolol CR 100 MG TABCR PO (08:10)
[2019-03-12] MEDS: Multivitamin TAB 1 TAB PO (08:11)
[2019-03-12] MEDS: Ferrous Sulfate 325 MG TAB 162.5 MG PO (08:11)
[2019-03-12] MEDS: Insulin Glargine 300 UNITS/3 ML PEN 34 UNITS SC (08:22)
[2019-03-12 08:32] LABS: Abs Immature Grans 0.03 k/cumm (0.0-0.09); Absolute Basophil Count 0.02 k/cumm (0.0-0.2); Absolute Eosinophil Count 0.17 k/cumm (0.0-0.7); Absolute Lymphocyte Count 5.01 k/cumm (1.2-3.4); Absolute Monocyte Count 0.63 k/cumm (0.11-0.7); Absolute Neutrophil Count 4.86 k/cumm (1.2-6.7); Basophils % 0.2; Eosinophils % 1.6; HCT 32.9 % (40.0-50.0); HGB 11.2 g/dL (13.5-17.5); Immature Grans % 0.3; Lymphocytes % 46.7; Mean Corpuscular Hemoglobin 30.7 pg (27.0-33.0); Mean Corpuscular Volume 90.1 fL (80-95); Mean Platelet Volume 8.7 fL (8.0-11.0); Monocytes % 5.9; Neutrophils % 45.3; Platelet Count 201 x1000/uL (130-400); RBC 3.65 m/cumm (4.50-6.00); RBC Distribution Width 15.5 % (11.8-14.1); White Blood Cell Count 10.72 k/cumm (4.4-10.8)
[2019-03-12 09:02] LABS: Anisocytosis 1+; Diff Comment Agrees w/ Instrument; Poikilocytes 1+; Polychromasia Present
--- NOTE | 2019-03-12 10:52 | DSE_ITS ---
Date of service: 03/12/19 Time of Service: 10:48 DS: Diagnosis Discharge Diagnosis (1) Chronic iron deficiency anemia: Status: Acute (2) Gastric malignant neoplasm: Status: Acute (3) Type 2 diabetes mellitus with complication: Status: Chronic Discharge Plan Disposition Patient Disposition: HOME Condition: Good Discharge Details Reason For Visit: ANEMIA Admit Date/Time: 03/11/19 21:13 Admit Provider: Kurt Rowland Attending Provider: Kurt Rowland Primary Care Provider: Curtis Chavarria [facility] Hospital Course: 73-year-old male with a history of metastatic gastric carcinoma, CLL, diabetes mellitus type 2, coronary artery disease status post coronary artery bypass graft, previous CVA who now presents emergency department for blood transfusion. He was supposed to be transfusion yesterday for hemoglobin of 7.5 but for unclear reasons this was never carried out yesterday. He has been feeling weak and lightheaded. He was evaluated in the emergency department by Dr. Ranjan Simeon did a rectal exam and found that he had dark brown heme positive stools but no marianna blood. CBC was then checked and shown that his anemia had progressed to a hemoglobin of 6.5 g hematocrit 19.6%. Platelet count is normal at 278,000 and his white blood cell count is minimally elevated at 11,200. Patient is being admitted overnight on observation status while he receives transfusions. Dr. Jeffrey Bangura who followed up with the patient in the emergency department ordered 3 units of packed red blood cells be transfused overnight. Patient is desiring to leave the hospital soon as the transfusion is complete as he has a campground to run. He is scheduled to start chemotherapy treatment on Saturday for his metastatic cancer. Today he is feeling better his H/H is improved at 11.2/32.9. He would like to go home. He will get a script for lab draws in 2 days, and he will be placed on PPI BID with H2 oren daily. He denies n/v/d, SOB, CP. (1) Chronic iron deficiency anemia: will transfuse him 2 to 3 units to get his hemoglobin over 8 gm. (2) Gastric malignant neoplasm: continue GI protection for chronic UGI bleeding; proceed w/ CTX this Saturday (3) Type 2 diabetes mellitus with complication: monitor glucose and give his usual dose of glyburide and Lantus; cover glucose elevations w sliding scale Novolog. Home Meds and New Rx's Prescriptions: New ranitidine HCl [Zantac] 300 mg tablet 300 mg PO DAILY Qty: 30 RF: 0 omeprazole 40 mg capsule,delayed release(DR/EC) 40 mg PO BID Qty: 60 RF: 0 Continued nitroglycerin 0.4 mg tablet, sublingual 0.4 mg SL ONCE Qty: 30 RF: 0 pen needle, diabetic [Lite Touch Insulin Pen [place]] 31 gauge x 5/16 needle .ROUTE .MEDSUPPLY Qty: 100 RF: 5 lancets [Accu-Chek Softclix Lancets] misc .ROUTE .MEDSUPPLY Qty: 200 RF: 4 FreeStyle Lite Strips strip .ROUTE .MEDSUPPLY Qty: 100 RF: 11 blood-glucose meter [FreeStyle Spencer Lite] kit .ROUTE .MEDSUPPLY Qty: 1 RF: 0 glipizide 5 mg tablet 2.5 mg PO HS PRN (Reason: t-1 1700) RF: 0 Lantus Solostar U-100 Insulin 100 unit/mL (3 mL) insulin pen 34 unit Sub-Q DAILY RF: 0 ferrous sulfate 325 mg (65 mg iron) tablet See Patient Comments PO DAILY RF: 0 multivitamin [Multiple Vitamins] Tablet 1 tab PO DAILY RF: 0 sucralfate 1 gram Tablet 1 g PO Q6H Qty: 120 RF: 1 metoprolol succinate 100 mg Tablet Extended Release 24 Hr 100 mg PO DAILY RF: 0 Discharge Instructions Instructions: Gastrointestinal Bleeding (GEN), Anemia (GEN) Additional Instructions: Get you blood level checked in 2 days. You have been started on two medications for your stomach, omeprazole-take twice a day, and zantac- take once a day. Follow up with you oncologist in 1 week. Seek medical treatment immediately if you have Chest pain, Shortness of breath, nausea, vomiting, or feel lightheaded or dizzy. Stand Alone Forms: Nursing Discharge Form Referrals: Curtis Chavarria [Primary Care Provider] - 03/23/19 8:20 am Activity:: Activity as Tolerated Equipment/Supplies:: No Equipment Needed Diet:: As Tolerated Discharge Orders Discharge Orders: Discharge Order (Routine); Ordered 03/12/19 Ordered By: Lauren Childers Ambulatory Orders: Hemoglobin/Hematocrit (Routine) Location: Determined by Patient Ordered By: Lauren Curtis Exam Const General: cooperative, no acute distress, frail appearing and ill appearing chronically Nutritional Appearance: underweight Orientation: alert, awake and oriented x3 Eyes General: appearance normal, both eyes and all related structures Alignment and Position: alignment normal Periorbital: periorbital findings normal Eyelids: eyelids normal Conjunctivae: conjunctival abnormality bilaterally Sclera: sclerae normal Pupils: PERRL EOM: EOM intact bilaterally Neck Neck: normal visual inspection, full ROM and no JVD Carotids: delayed carotid upstroke and bruit Lymphatic: lymphadenopathy Chest Chest: abnormal inspection of the chest scar (healed sternal wound from CABG) Resp Effort & Inspection: normal respiratory effort and able to speak in complete sentences Auscultation: clear to auscultation bilaterally Cardio Jugular venous pressure: no JVD Palpation: normal PMI Rate: regular rate Rhythm: regular rhythm Heart Sounds: S1 normal, S2 normal and murmur systolic Pulses: other (absent left pedal pulses, very weak R. pedal pulses; no cyanosis) GI Inspection: scaphoid Palpation: soft Percussion: normal to percussion Auscultation: normal bowel sounds Neuro General: alert, awake, oriented x3, moves all extremities and no focal motor deficits Cranial Nerves: EOM intact bilaterally, no nystagmus, facial strength normal and tongue midline Cognition: normal cognition Speech: speech normal Motor: muscle tone normal throughout, strength 5/5 throughout and no movement abnormalities noted Sensory Exam: no sensory deficits noted Extrem General: full ROM, no joint enlargement and no clubbing, cyanosis or edema Psych Appearance: grossly normal Mental Status: mental status grossly normal Speech and Movement: speech and movement normal Mood: congruent mood Affect: normal affect Attitude: cooperative Thought Process: normal Thought Content: normal Insight: insight good DS: Data Vitals/I&O Vitals and I&O: Vital Signs Temperature 37.1 C 03/12/19 06:53 Temperature Source Tympanic 03/11/19 18:28 Pulse 74 03/12/19 06:53 Pulse Rhythm Regular 03/12/19 07:30 Respiratory Rate 18 03/12/19 06:53 Respiratory Effort Non-Labored 03/12/19 07:30 Respiratory Depth Normal 03/12/19 07:30 Respiratory Pattern Normal 03/12/19 07:30 Blood Pressure 180/69 H 03/12/19 06:53 Blood Pressure Position Sitting 03/11/19 18:28 Pulse Oximetry 97 03/12/19 06:53 Oxygen Delivery Method Room Air 03/12/19 06:53 Oxygen Flow Rate 0 03/12/19 06:53 Pain Level 0 03/11/19 23:51 Intake & Output 03/11/19 03/11/19 03/12/19 11:59 23:59 11:59 Intake Total 1556 / 1556 Balance 1556 / 1556 Weight 45.6 kg Intake: IV 50 / 50 Oral 390 / 390 Blood Product 987 / 987 Rbc Leuko Reduced Unit 332 / 332 [id number] Rbc Leuko Reduced Unit 355 / 355 [id number] Rbc Leuko Reduced Unit 300 / 300 [id number] Other 129 / 129 Rbc Leuko Reduced Unit 25 / 25 [id number] Rbc Leuko Reduced Unit 54 / 54 [id number] Rbc Leuko Reduced Unit 50 / 50 [id number] Other: Urine Color Yellow Urine Appearance Clear Urine Odor Normal Comment LARGE VOID X 1 IN TOILET Voiding Methods Toilet Labs on day of discharge: Labs from last 24 hours 03/12/19 03/11/19 03/11/19 08:15 19:42 19:07 WBC 10.72 11.21 H RBC 3.65 L 2.12 L Hgb 11.2 L D 6.5 L* Hct 32.9 L D 19.6 L* MCV 90.1 92.5 MCH 30.7 30.7 MCHC 34.0 33.2 RDW 15.5 H 16.7 H Plt Count 201 278 MPV 8.7 8.7 Immature Gran % 0.3 0.0 Neutrophils % 45.3 37.0 Band Neutrophils % 0.0 Lymphocytes % 46.7 57.0 Atypical Lymphs % 0 Monocytes % 5.9 3.0 Eosinophils % 1.6 2.0 Basophils % 0.2 1.0 Absolute Neutrophils 4.86 4.15 Absolute Lymphocytes 5.01 H 6.39 H Absolute Monocytes 0.63 0.34 Absolute Eosinophils 0.17 0.22 Absolute Basophils 0.02 0.11 Differential Comment Agrees w/ instrument Manual differential RBC Morphology See below See below Polychromasia Present Present Poikilocytosis 1+ Basophilic Stippling Present Anisocytosis 1+ Microcytosis 1+ PT INR APTT Sodium Potassium Chloride Carbon Dioxide Anion Gap BUN Creatinine Estimated GFR/1.73 m2 Glucose Calcium Total Bilirubin AST ALT Alkaline Phosphatase Total Protein Albumin Lipase Patient ABO/Rh A Negative Antibody Screen Negative Crossmatch See Detail 03/11/19 03/11/19 19:07 18:21 WBC RBC Hgb Hct MCV MCH MCHC RDW Plt Count MPV Immature Gran % Neutrophils % Band Neutrophils % Lymphocytes % Atypical Lymphs % Monocytes % Eosinophils % Basophils % Absolute Neutrophils Absolute Lymphocytes Absolute Monocytes Absolute Eosinophils Absolute Basophils Differential Comment RBC Morphology Polychromasia Poikilocytosis Basophilic Stippling Anisocytosis Microcytosis PT 9.7 INR 1.0 APTT 26.1 Sodium 133 L Potassium 3.7 Chloride 99 Carbon Dioxide 27.6 Anion Gap 6.4 BUN 22 H Creatinine 0.77 Estimated GFR/1.73 m2 >= 60.00 Glucose 266 H Calcium 9.1 Total Bilirubin 0.3 AST 11 L ALT 16 Alkaline Phosphatase 101 Total Protein 5.9 L Albumin 2.8 L Lipase 42 L Patient ABO/Rh Antibody Screen Crossmatch [facility] Medical History Liver metastases (Acute) CAD (coronary artery disease) (Chronic) Artificial cardiac pacemaker (Acute) COPD (chronic obstructive pulmonary disease) (Chronic) Gastric malignant neoplasm (Acute) Chronic iron deficiency anemia (Acute) Iron deficiency anemia due to chronic blood loss (Acute) Stroke (Chronic) Bilateral carotid artery disease (Chronic) Diabetes mellitus (Chronic) Counseling on health promotion and disease prevention (Acute) Weight loss (Acute 09/09/17) Type 2 diabetes mellitus with complication (Chronic 09/09/17) PVD (peripheral vascular disease) (Chronic 09/09/17) Iron deficiency anemia (Chronic 09/09/17) Gastrointestinal hemorrhage (Acute 09/09/17) Diabetic peripheral neuropathy (Chronic 09/09/17) CLL (chronic lymphocytic leukemia) (Chronic 09/09/17) Anemia (Acute) Fever (Acute) Micturition syncope (Chronic) Osteomyelitis of toe of left foot (Chronic) B12 deficiency (Chronic) Amputated toe of left foot (Acute) History of trigger finger (Acute) Surgical History History of esophagogastroduodenoscopy (EGD) (Resolved 02/06/19) Hx of CABG (Chronic) Family History Other Diabetes Heart disease Social History Smoking/Tobacco Use Status: Current every day Tobacco Type: cigarettes Alcohol Intake: former Drug use: Never Substance use type: does not use Do you feel safe at home: Yes Do you feel safe in your relationship?: Yes
[2019-03-12] MEDS: Heparin 500 UNITS/5 ML SYRINGE IVP (11:38)
--- NOTE | 2019-03-12 11:43 | PDOC.CMIN ---
Care Management Initial Assess REASON FOR HOSPITALIZATION:: Anemia
--- NOTE | 2019-03-12 16:28 | PDOC.CMPRO ---
Care Management Progress Note Dillon was admitted to observation status for Anemia. He came in with a critical level of 6.5 and after transfusion of three units of blood, stabilized and was discharged. MOISES spoke with Jazmin at [employer] She reported Ravi had been opened to services just yesterday. Orders, she reported came from [facility] and [facility]. She reported Ravi resides in the [facility] and spends his guido managing [place] with his . She reported he has not yet been ready to discuss Palliative Care and feels he is going to beat cancer. ' Ravi is scheduled to begin chemo on Saturday and has a port placed. MOISES faxed discharge summary to Jazmin at [place]. [facility]: F#[phone]. She reported Ravi did not require a resumption of services as he had been opened yesterday and was not inpatient at [facility].
--- NOTE | 2019-03-12 16:33 | CMPROGNOTE_ITS ---
Care Management Progress Note Dillon was admitted to observation status for Anemia. He came in with a critical level of 6.5 and after transfusion of three units of blood, stabilized and was discharged. MOISES spoke with Jazmin at [employer]. She reported Ravi had been opened to services just yesterday. Orders, she reported came from [facility] and [facility] She reported Ravi resides in the [facility] and spends his guido managing [place] with his . She reported he has not yet been ready to discuss Palliative Care and feels he is going to beat cancer. ' Ravi is scheduled to begin chemo on Saturday and has a port placed. MOISES faxed discharge summary to Jazmin at [email or web address] [facility]: F#[phone]. She reported Ravi did not require a resumption of services as he had been opened yesterday and was not inpatient at [facility].
== END 2019-03-12 11:52 | disposition home or self-care (01) ==
LOC: ER 21:59 → MS 03-12 01:53
PROVIDERS: Emergency Medicine; Admitting Provider Internal Medicine; Emergency Provider Emergency Medicine; PCP Family Medicine; Visit Provider Internal Medicine
DX: K92.1 Melena (principal); R19.5 Other fecal abnormalities; R42 Dizziness and giddiness; C16.9 Malignant neoplasm of stomach, unspecified; C78.7 Secondary malignant neoplasm of liver and intrahepatic bile duct; C91.90 Lymphoid leukemia, unspecified not having achieved remission; E11.42 Type 2 diabetes mellitus with diabetic polyneuropathy; Z79.4 Long term (current) use of insulin; J44.9 Chronic obstructive pulmonary disease, unspecified; I25.10 Atherosclerotic heart disease of native coronary artery without angina pectoris; Z95.1 Presence of aortocoronary bypass graft; F17.210 Nicotine dependence, cigarettes, uncomplicated
CPT/HCPCS: 36415; 36430; 80053; 83690; 86850; 86900; 86901; 86920; 99219; 99238; 99285; 85025; 85610; 85730; 99217; 99284; G0378; P9016

== ENCOUNTER 2019-03-18 19:26 | Emergency (ER) | payer OTHER, SELFPAY ==
[2019-03-18] VITALS (22 sets, daily range): BP systolic 146–184; BP diastolic 55–73; PULSE 70–101; RESP 13–21; TEMP 36.9–37.1; O2SAT 96–99
--- NOTE | 2019-03-18 20:00 | W.ED.GENAD ---
Discharge Plan Disposition Patient Disposition: HOME Condition: Good Discharge Details Chief Complaint: Dizzy/Sync Clinical Impression: Dehydration, Hyperglycemia Primary Care Provider: Curtis Chavarria ED Provider: Jeffrey Banguras and New Rx's Prescriptions: Continued nitroglycerin 0.4 mg tablet, sublingual 0.4 mg SL ONCE Qty: 30 RF: 0 pen needle, diabetic [Lite Touch Insulin Pen [place]] 31 gauge x 5/16 needle .ROUTE .MEDSUPPLY Qty: 100 RF: 5 lancets [Accu-Chek Softclix Lancets] misc .ROUTE .MEDSUPPLY Qty: 200 RF: 4 FreeStyle Lite Strips strip .ROUTE .MEDSUPPLY Qty: 100 RF: 11 blood-glucose meter [FreeStyle [place] Lite] kit .ROUTE .MEDSUPPLY Qty: 1 RF: 0 glipizide 5 mg tablet 2.5 mg PO HS PRN (Reason: t-1 1700) RF: 0 Lantus Solostar U-100 Insulin 100 unit/mL (3 mL) insulin pen 34 unit Sub-Q DAILY RF: 0 ferrous sulfate 325 mg (65 mg iron) tablet See Patient Comments PO DAILY RF: 0 multivitamin [Multiple Vitamins] Tablet 1 tab PO DAILY RF: 0 sucralfate 1 gram Tablet 1 g PO Q6H Qty: 120 RF: 1 metoprolol succinate 100 mg Tablet Extended Release 24 Hr 100 mg PO DAILY RF: 0 ranitidine HCl [Zantac] 300 mg tablet 300 mg PO DAILY Qty: 30 RF: 0 omeprazole 40 mg capsule,delayed release(DR/EC) 40 mg PO BID Qty: 60 RF: 0 Discharge Instructions Additional Instructions: Please be sure to drink plenty of fluids to stay hydrated. Check your sugar in the morning but she should take your Lantus and less sugar really low. Contact the Cancer [facility] tomorrow for follow-up. Return to ED if fainting, shortness of breath, chest pain, other concerns. Referrals: [facility] [Provider Group] Medical Decision Making Patient presenting with near syncope. He had no loss of consciousness either pre-or post event. He did fall but did not have loss of consciousness. He has no spinal tenderness. He has no chest pain or shortness of breath. He has had nausea and vomiting post chemo for the last 5 days but has not been persistent. He denies having hematemesis, coffee-ground emesis, black or bloody stool. He looks well currently. His EKG is normal. Plan will be for head CT, laboratory studies to include CBC and BMP. Patient's hemoglobin is good at 10.9. Platelets are normal. Chemistries unremarkable other than elevated glucose and slightly low mag. He does not need transfusion. He may have some mild dehydration associated with nausea and vomiting due to the previous chemo. He will get a liter of fluids. We will replace his mag orally. We will recheck sugar and orthostatic vitals after the fluids prior to discharge. Patient feels much better after liter of fluids. He is not orthostatic. Sugar only came down to 350. He did not take his Lantus this morning. We will give him regular 6 units subcu tonight. May take his Lantus in the morning. Contact [facility] in morning for follow up. Return to ED for chest pain, syncope, shortness of breath, other concerns. Lab Data Lab results reviewed: Yes I reviewed the patient's lab results. ECG Data Attestation: I personally reviewed and interpreted this ECG (s) as follows: Prior ECG tracings: available for review Interpretation: Normal sinus rhythm at 94. Normal axis and intervals. Normal ST segments HPI General Date/Time Provider Initiated Documentation: 03/18/19 19:58. Limitations to Documentation: no limitations. Information obtained by: patient and old records reviewed. HPI Narrative: Patient presents to ED from home with complaint of near syncope and fall. Patient was admitted last week and received 3 units of packed red cells for symptomatic anemia. He has known metastatic gastric carcinoma. He has not had any hematemesis or coffee-ground emesis. He has had no black or bloody stool. He reports stool that has been brown. He did undergo chemotherapy 5 days ago. He has had intermittent nausea and vomiting including today before lunch. He otherwise has felt well. Prior to coming in this evening he was starting to feel a little lightheaded and felt like he needed to get some fresh air. When he tried to go outside he got very lightheaded but did not pass out. He did stumble and fall. Struck his head on the ground but did not have loss of consciousness. He did sustain some minor abrasions/superficial lacerations to the right eyebrow area. He otherwise denies headache, neck pain, chest pain, syncope, shortness of breath, abdominal pain, focal neuro findings. Related Data Home Medications Medication Instructions Recorded Confirmed nitroglycerin 0.4 mg sublingual 0.4 mg SL ONCE #30 tab 09/08/18 03/18/19 tablet lancets #200 each 10/23/18 02/16/19 pen needle, diabetic 31 gauge x #100 each 10/31/18 02/16/1902/19 blood sugar diagnostic strips #100 each 11/07/18 02/16/19 blood-glucose meter kit #1 each 11/07/18 02/16/19 Lantus Solostar U-100 Insulin 34 unit SUB-Q DAILY 12/24/18 03/18/19 glipizide 5 mg tablet 2.5 mg PO HS PRN 12/30/18 03/18/19 ferrous sulfate 325 mg (65 mg See Rx Instructions PO DAILY tab 01/13/19 03/18/19 iron) tablet multivitamin [Multiple Vitamins] 1 tab PO DAILY 02/04/19 03/18/19 sucralfate 1 g PO Q6H #120 tab 02/07/19 03/18/19 metoprolol succinate 100 mg PO DAILY 03/05/19 03/18/19 omeprazole 40 mg PO BID #60 cap 03/12/19 03/18/19 ranitidine HCl [Zantac] 300 mg PO DAILY #30 tab 03/12/19 03/18/19 Previous Rx's Medication Instructions Recorded nitroglycerin 0.4 mg sublingual 0.4 mg SL ONCE #30 tab 09/08/18 tablet lancets #200 each 10/23/18 pen needle, diabetic 31 gauge x #100 each 10/31/1802/19 blood sugar diagnostic strips #100 each 11/07/18 blood-glucose meter kit #1 each 11/07/18 sucralfate 1 g PO Q6H #120 tab 02/07/19 omeprazole 40 mg PO BID #60 cap 03/12/19 ranitidine HCl [Zantac] 300 mg PO DAILY #30 tab 03/12/19 Allergies Allergy/AdvReac Type Severity Reaction Status Date / Time No Known Allergies Allergy Verified 03/18/19 19:32 General Stated Complaint: Dizzy/Sync CORI: 3 Review of Systems Review of Systems 07/20 Review of Systems completed and is negative except as stated above in HPI (Systems reviewed: Const, Eyes, ENT, Resp, CV, GI, , MSK, Skin, Neuro) [facility] Medical History Liver metastases (Acute) CAD (coronary artery disease) (Chronic) Artificial cardiac pacemaker (Acute) COPD (chronic obstructive pulmonary disease) (Chronic) Gastric malignant neoplasm (Acute) Chronic iron deficiency anemia (Acute) Iron deficiency anemia due to chronic blood loss (Acute) Stroke (Chronic) Bilateral carotid artery disease (Chronic) Diabetes mellitus (Chronic) Counseling on health promotion and disease prevention (Acute) Weight loss (Acute 09/09/17) Type 2 diabetes mellitus with complication (Chronic 09/09/17) PVD (peripheral vascular disease) (Chronic 09/09/17) Iron deficiency anemia (Chronic 09/09/17) Gastrointestinal hemorrhage (Acute 09/09/17) Diabetic peripheral neuropathy (Chronic 09/09/17) CLL (chronic lymphocytic leukemia) (Chronic 09/09/17) Anemia (Acute) Fever (Acute) Micturition syncope (Chronic) Osteomyelitis of toe of left foot (Chronic) B12 deficiency (Chronic) Amputated toe of left foot (Acute) History of trigger finger (Acute) Surgical History Hx of CABG (Chronic) History of esophagogastroduodenoscopy (EGD) (Resolved 02/06/19) Social History Smoking/Tobacco Use Status: Current every day Tobacco Type: cigarettes Smoking cigarettes per day: 3 Alcohol Intake: former Drug use: Never Substance use type: does not use Do you feel safe at home: Yes Do you feel safe in your relationship?: Yes Exam Narrative Exam Narrative: Vitals: Afebrile with mild tachycardia. Const: WDWN elderly male in NAD. HEENT: NC. Small abrasions/superficial lacs to right eyebrow. No facial bony tenderness. Neck: Supple. Trachea midline. No cervical spine tenderness. Normal ROM. Lungs: Normal respiratory effort. Lungs are clear. No chest wall tenderness to palpation. Cor: RRR without murmur/gallop. Good radial pulses. GI: Soft. NT/ND. No guarding or rebound. Back: No TLS spine tenderness. Neuro: A+O x 3. CN grossly in tact. Good strength and no focal deficit. Ext: No C/C/E. No deformity or tenderness. Normal ROM. Skin: Warm and dry. Right eyebrow abrasion. Course Vital Signs Temperature 98.4 F 03/18/19 19:29 Pulse 101 H 03/18/19 19:29 Respiratory Rate 18 03/18/19 19:29 Blood Pressure 153/69 H 03/18/19 19:29 Pulse Oximetry 99 03/18/19 19:29 Temperature 98.4 F 03/18/19 19:29 Temperature Source Skin 03/18/19 19:29 Pulse 101 H 03/18/19 19:29 Respiratory Rate 18 03/18/19 19:29 Blood Pressure 153/69 H 03/18/19 19:29 Blood Pressure Position Sitting 03/18/19 19:29 Pulse Oximetry 99 03/18/19 19:29 Oxygen Delivery Method Room Air 03/18/19 19:29 Oxygen Flow Rate 0 03/18/19 19:29 Pain Level 0 03/18/19 19:29
--- NOTE | 2019-03-18 20:16 | ED.GENADUL_ITS ---
Discharge Plan Disposition Patient Disposition: HOME Condition: Good Discharge Details Chief Complaint: Dizzy/Sync Clinical Impression: Dehydration, Hyperglycemia Primary Care Provider: Curtis Chavarria ED Provider: Jeffrey Banguras and New Rx's Prescriptions: Continued nitroglycerin 0.4 mg tablet, sublingual 0.4 mg SL ONCE Qty: 30 RF: 0 pen needle, diabetic [Lite Touch Insulin Pen [place]] 31 gauge x 5/16 needle .ROUTE .MEDSUPPLY Qty: 100 RF: 5 lancets [Accu-Chek Softclix Lancets] misc .ROUTE .MEDSUPPLY Qty: 200 RF: 4 FreeStyle Lite Strips strip .ROUTE .MEDSUPPLY Qty: 100 RF: 11 blood-glucose meter [FreeStyle [place] Lite] kit .ROUTE .MEDSUPPLY Qty: 1 RF: 0 glipizide 5 mg tablet 2.5 mg PO HS PRN (Reason: t-1 1700) RF: 0 Lantus Solostar U-100 Insulin 100 unit/mL (3 mL) insulin pen 34 unit Sub-Q DAILY RF: 0 ferrous sulfate 325 mg (65 mg iron) tablet See Patient Comments PO DAILY RF: 0 multivitamin [Multiple Vitamins] Tablet 1 tab PO DAILY RF: 0 sucralfate 1 gram Tablet 1 g PO Q6H Qty: 120 RF: 1 metoprolol succinate 100 mg Tablet Extended Release 24 Hr 100 mg PO DAILY RF: 0 ranitidine HCl [Zantac] 300 mg tablet 300 mg PO DAILY Qty: 30 RF: 0 omeprazole 40 mg capsule,delayed release(DR/EC) 40 mg PO BID Qty: 60 RF: 0 Discharge Instructions Additional Instructions: Please be sure to drink plenty of fluids to stay hydrated. Check your sugar in the morning but she should take your Lantus and less sugar really low. Contact the Cancer Center tomorrow for follow-up. Return to ED if fainting, shortness of breath, chest pain, other concerns. Referrals: [facility] [Provider Group] Medical Decision Making Patient presenting with near syncope. He had no loss of consciousness either pre-or post event. He did fall but did not have loss of consciousness. He has no spinal tenderness. He has no chest pain or shortness of breath. He has had nausea and vomiting post chemo for the last 5 days but has not been persistent. He denies having hematemesis, coffee-ground emesis, black or bloody stool. He looks well currently. His EKG is normal. Plan will be for head CT, laboratory studies to include CBC and BMP. Patient's hemoglobin is good at 10.9. Platelets are normal. Chemistries unremarkable other than elevated glucose and slightly low mag. He does not need transfusion. He may have some mild dehydration associated with nausea and vomiting due to the previous chemo. He will get a liter of fluids. We will replace his mag orally. We will recheck sugar and orthostatic vitals after the fluids prior to discharge. Patient feels much better after liter of fluids. He is not orthostatic. Sugar only came down to 350. He did not take his Lantus this morning. We will give him regular 6 units subcu tonight. May take his Lantus in the morning. [facility] in morning for follow up. Return to ED for chest pain, syncope, shortness of breath, other concerns. Lab Data Lab results reviewed: Yes I reviewed the patient's lab results. ECG Data Attestation: I personally reviewed and interpreted this ECG (s) as follows: Prior ECG tracings: available for review Interpretation: Normal sinus rhythm at 94. Normal axis and intervals. Normal S T segments HPI General Date/Time Provider Initiated Documentation: 03/18/19 19:58 . Limitations to Documentation: no limitations . Information obtained by: patient and old records reviewed . HPI Narrative: Patient presents to ED from home with complaint of near syncope and fall. Patient was admitted last week and received 3 units of packed red cells for symptomatic anemia. He has known metastatic gastric carcinoma. He has not had any hematemesis or coffee-ground emesis. He has had no black or bloody stool. He reports stool that has been brown. He did undergo chemotherapy 5 days ago. He has had intermittent nausea and vomiting including today before lunch. He otherwise has felt well. Prior to coming in this evening he was starting to feel a little lightheaded and felt like he needed to get some fresh air. When he tried to go outside he got very lightheaded but did not pass out. He did stumble and fall. Struck his head on the ground but did not have loss of consciousness. He did sustain some minor abrasions/superficial lacerations to the right eyebrow area. He otherwise denies headache, neck pain, chest pain, syncope, shortness of breath, abdominal pain, focal neuro findings. Related Data Home Medications Medication Instructions Recorded Confirmed nitroglycerin 0.4 mg sublingual 0.4 mg SL ONCE #30 tab 09/08/18 03/18/19 tablet lancets #200 each 10/23/18 02/16/19 pen needle, diabetic 31 gauge x #100 each 10/31/18 02/16/1902/19 blood sugar diagnostic strips #100 each 11/07/18 02/16/19 blood-glucose meter kit #1 each 11/07/18 02/16/19 Lantus Solostar U-100 Insulin 34 unit SUB-Q DAILY 12/24/18 03/18/19 glipizide 5 mg tablet 2.5 mg PO HS PRN 12/30/18 03/18/19 ferrous sulfate 325 mg (65 mg See Rx Instructions PO DAILY tab 01/13/19 03/18/19 iron) tablet multivitamin [Multiple Vitamins] 1 tab PO DAILY 02/04/19 03/18/19 sucralfate 1 g PO Q6H #120 tab 02/07/19 03/18/19 metoprolol succinate 100 mg PO DAILY 03/05/19 03/18/19 omeprazole 40 mg PO BID #60 cap 03/12/19 03/18/19 ranitidine HCl [Zantac] 300 mg PO DAILY #30 tab 03/12/19 03/18/19 Previous Rx's Medication Instructions Recorded nitroglycerin 0.4 mg sublingual 0.4 mg SL ONCE #30 tab 09/08/18 tablet lancets #200 each 10/23/18 pen needle, diabetic 31 gauge x #100 each 10/31/1802/19 blood sugar diagnostic strips #100 each 11/07/18 blood-glucose meter kit #1 each 11/07/18 sucralfate 1 g PO Q6H #120 tab 02/07/19 omeprazole 40 mg PO BID #60 cap 03/12/19 ranitidine HCl [Zantac] 300 mg PO DAILY #30 tab 03/12/19 Allergies Allergy/AdvReac Type Severity Reaction Status Date / Time No Known Allergies Allergy Verified 03/18/19 19:32 General Stated Complaint: Dizzy/Sync CORI: 3 Review of Systems Review of Systems 07/20 Review of Systems completed and is negative except as stated above in HPI (Systems reviewed: Const, Eyes, ENT, Resp, CV, GI, , MSK, Skin, Neuro) [facility] Medical History Liver metastases (Acute) CAD (coronary artery disease) (Chronic) Artificial cardiac pacemaker (Acute) COPD (chronic obstructive pulmonary disease) (Chronic) Gastric malignant neoplasm (Acute) Chronic iron deficiency anemia (Acute) Iron deficiency anemia due to chronic blood loss (Acute) Stroke (Chronic) Bilateral carotid artery disease (Chronic) Diabetes mellitus (Chronic) Counseling on health promotion and disease prevention (Acute) Weight loss (Acute 09/09/17) Type 2 diabetes mellitus with complication (Chronic 09/09/17) PVD (peripheral vascular disease) (Chronic 09/09/17) Iron deficiency anemia (Chronic 09/09/17) Gastrointestinal hemorrhage (Acute 09/09/17) Diabetic peripheral neuropathy (Chronic 09/09/17) CLL (chronic lymphocytic leukemia) (Chronic 09/09/17) Anemia (Acute) Fever (Acute) Micturition syncope (Chronic) Osteomyelitis of toe of left foot (Chronic) B12 deficiency (Chronic) Amputated toe of left foot (Acute) History of trigger finger (Acute) Surgical History Hx of CABG (Chronic) History of esophagogastroduodenoscopy (EGD) (Resolved 02/06/19) Social History Smoking/Tobacco Use Status: Current every day Tobacco Type: cigarettes Smoking cigarettes per day: 3 Alcohol Intake: former Drug use: Never Substance use type: does not use Do you feel safe at home: Yes Do you feel safe in your relationship?: Yes Exam Narrative Exam Narrative: Vitals: Afebrile with mild tachycardia. Const: WDWN elderly male in NAD. HEENT: NC. Small abrasions/superficial lacs to right eyebrow. No facial bony tenderness. Neck: Supple. Trachea midline. No cervical spine tenderness. Normal ROM. Lungs: Normal respiratory effort. Lungs are clear. No chest wall tenderness to palpation. Cor: RRR without murmur/gallop. Good radial pulses. GI: Soft. NT/ND. No guarding or rebound. Back: No TLS spine tenderness. Neuro: A+O x 3. CN grossly in tact. Good strength and no focal deficit. Ext: No C/C/E. No deformity or tenderness. Normal ROM. Skin: Warm and dry. Right eyebrow abrasion. Course Vital Signs Temperature 98.4 F 03/18/19 19:29 Pulse 101 H 03/18/19 19:29 Respiratory Rate 18 03/18/19 19:29 Blood Pressure 153/69 H 03/18/19 19:29 Pulse Oximetry 99 03/18/19 19:29 Temperature 98.4 F 03/18/19 19:29 Temperature Source Skin 03/18/19 19:29 Pulse 101 H 03/18/19 19:29 Respiratory Rate 18 03/18/19 19:29 Blood Pressure 153/69 H 03/18/19 19:29 Blood Pressure Position Sitting 03/18/19 19:29 Pulse Oximetry 99 03/18/19 19:29 Oxygen Delivery Method Room Air 03/18/19 19:29 Oxygen Flow Rate 0 03/18/19 19:29 Pain Level 0 03/18/19 19:29
[2019-03-18 20:35] LABS: Abs Immature Grans 0.02 k/cumm (0.0-0.09); Absolute Basophil Count 0.02 k/cumm (0.0-0.2); Absolute Eosinophil Count 0.12 k/cumm (0.0-0.7); Absolute Lymphocyte Count 4.43 k/cumm (1.2-3.4); Absolute Monocyte Count 0.19 k/cumm (0.11-0.7); Basophils % 0.2; Eosinophils % 1.4; HCT 31.8 % (40.0-50.0); HGB 10.9 g/dL (13.5-17.5); Immature Grans % 0.2; Lymphocytes % 49.9; Mean Corp. HGB Concentration 34.3 g/dL (32.0-36.0); Mean Corpuscular Hemoglobin 30.5 pg (27.0-33.0); Mean Corpuscular Volume 89.1 fL (80-95); Mean Platelet Volume 8.4 fL (8.0-11.0); Monocytes % 2.1; Neutrophils % 46.2; Platelet Count 213 x1000/uL (130-400); RBC 3.57 m/cumm (4.50-6.00); RBC Distribution Width 14.9 % (11.8-14.1); White Blood Cell Count 8.88 k/cumm (4.4-10.8)
[2019-03-18 20:46] LABS: Anion Gap 7.2 mmol/L (3-11); BUN 20 mg/dL (7-18); CO2 27.8 mmol/L (21.0-32.0); CREATININE 0.89 mg/dL (0.70-1.30); Calcium 9.1 mg/dL (8.5-10.1); Chloride 97 mmol/L (98-107); Glucose 455 mg/dL (70-100); Potassium 4.2 mmol/L (3.5-5.1); Sodium 132 mmol/L (136-145)
[2019-03-18 20:48] LABS: Magnesium 1.7 mg/dL (1.8-2.4)
[2019-03-18] MEDS: Normal Saline 1,000 ML 1000 ML IV (20:53)
--- NOTE | 2019-03-18 20:54 | DI.CT_ITS ---
SYMPTOM/DIAGNOSIS: TRAUMA CRANIAL CT: A noncontrast enhanced examination was performed. There is no evidence of an intra or extra axial hemorrhage. There is no evidence of a mass or midline shift. Regions of diminished absorption involving the frontal parietal white matter are demonstrated and are consistent with small vessel disease. There is no skull fracture. The sinuses are unremarkable. There is no mastoid effusion. The orbits appear intact. Soft tissues are unremarkable. SUMMARY: No acute intracranial abnormality is demonstrated.
--- NOTE | 2019-03-18 21:30 | DI.VRAD_ITS ---
EXAM: CT Head Without Contrast EXAM DATE/TIME: 03/18/2019 8:12 PM CLINICAL HISTORY: 73 years old, male; Injury or trauma; Fall; Initial encounter; Blunt trauma (contusions or hematomas); Consciousness not specified; Injury date: 03/18/2019 TECHNIQUE: Imaging protocol: Axial computed tomography images of the head without contrast. Coronal and sagittal reformatted images were created and reviewed. Radiation optimization: All CT scans at this facility use at least one of these dose optimization techniques: automated exposure control; mA and/or kV adjustment per patient size (includes targeted exams where dose is matched to clinical indication); or iterative reconstruction. COMPARISON: CT HEAD CERVICAL SPINE WO 12/24/2018 11:30 AM FINDINGS: Brain: Age related brain involution is present. No acute intracranial hemorrhage, mass effect, midline shift, or brain herniation. Diffuse subcortical and periventricular white matter hypodensities are most in favor with chronic small vessel disease. Ventricles: Compensatory exvacuo ventriculomegaly is present. Bones/joints: Unremarkable. No acute fracture. Sinuses: Visualized sinuses are unremarkable. No fluid levels. Mastoid air cells: Visualized mastoid air cells are well aerated. No mastoid effusion. Orbits: Unremarkable. Soft tissues: Unremarkable. IMPRESSION: 1. Negative for acute intracranial pathology. 2. Chronic findings as above. Dictated and Authenticated by: Aaron Pollard MD. Ordering:REKHA Murphy MD
[2019-03-18] MEDS: Magnesium Oxide 400 MG TAB PO (22:42)
[2019-03-18] MEDS: Insulin REGULAR-Human 100 UNITS/ML UNIT 6 UNITS SC (22:42)
[2019-03-18] MEDS: Normal Saline Flush 10 ML SYR IVP (22:50)
[2019-03-18] MEDS: Heparin 500 UNITS/5 ML SYRINGE (22:50)
== END 2019-03-18 22:55 | disposition home or self-care (01) ==
PROVIDERS: Emergency Provider Emergency Medicine; PCP Family Medicine
DX: E11.65 Type 2 diabetes mellitus with hyperglycemia (principal); E86.0 Dehydration; E11.42 Type 2 diabetes mellitus with diabetic polyneuropathy; I25.10 Atherosclerotic heart disease of native coronary artery without angina pectoris; W01.0XXA Fall on same level from slipping, tripping and stumbling without subsequent striking against object, initial encounter; J44.9 Chronic obstructive pulmonary disease, unspecified; Z95.0 Presence of cardiac pacemaker
CPT/HCPCS: 36415; 36416; 80048; 82962; 86850; 86900; 86901; 93005; 96360; 96372; 99285; 70450; 83735; 85025; 93010

== ENCOUNTER 2019-04-03 01:45 | Outpatient (RCR) | payer OTHER, SELFPAY ==
[2019-03-13] MEDS: Normal Saline Flush 10 ML SYR IVP (07:07)
[2019-03-13 07:24] LABS: Abs Immature Grans 0.04 k/cumm (0.0-0.09); Absolute Eosinophil Count 0.21 k/cumm (0.0-0.7); Absolute Monocyte Count 0.87 k/cumm (0.11-0.7); Absolute Neutrophil Count 6.54 k/cumm (1.2-6.7); Basophils % 0.1; Eosinophils % 1.6; HCT 35.8 % (40.0-50.0); HGB 12.2 g/dL (13.5-17.5); Immature Grans % 0.3; Lymphocytes % 42.6; Mean Corp. HGB Concentration 34.1 g/dL (32.0-36.0); Mean Corpuscular Hemoglobin 30.6 pg (27.0-33.0); Mean Corpuscular Volume 89.7 fL (80-95); Mean Platelet Volume 9.2 fL (8.0-11.0); Monocytes % 6.5; Neutrophils % 48.9; Platelet Count 245 x1000/uL (130-400); RBC 3.99 m/cumm (4.50-6.00); RBC Distribution Width 16.1 % (11.8-14.1); White Blood Cell Count 13.37 k/cumm (4.4-10.8)
[2019-03-13 07:34] LABS: ALT 16 U/L (12-78); AST 11 U/L (15-37); Albumin 2.8 g/dL (3.4-5.0); Alkaline Phosphatase 113 U/L (46-116); Anion Gap 8.5 mmol/L (3-11); BUN 15 mg/dL (7-18); Bilirubin, Total 0.6 mg/dL (0.2-1.0); CO2 27.5 mmol/L (21.0-32.0); CREATININE 0.73 mg/dL (0.70-1.30); Chloride 101 mmol/L (98-107); Glucose 237 mg/dL (70-100); Potassium 3.7 mmol/L (3.5-5.1); Sodium 137 mmol/L (136-145); Total Protein 6.1 g/dL (6.4-8.2)
[2019-03-13 07:36] LABS: Absolute Basophil Count 0.01 k/cumm (0.0-0.2)
[2019-03-13 07:51] LABS: Diff Comment Agrees w/ Instrument; Poikilocytes 1+; Polychromasia Present
[2019-03-16] MEDS: Normal Saline Flush 10 ML SYR IVP (07:16)
[2019-03-16 07:20] LABS: Abs Immature Grans 0.03 k/cumm (0.0-0.09); Absolute Basophil Count 0.02 k/cumm (0.0-0.2); Absolute Eosinophil Count 0.21 k/cumm (0.0-0.7); Absolute Monocyte Count 0.13 k/cumm (0.11-0.7); Absolute Neutrophil Count 6.13 k/cumm (1.2-6.7); Basophils % 0.2; Eosinophils % 1.8; HCT 36.3 % (40.0-50.0); HGB 12.4 g/dL (13.5-17.5); Immature Grans % 0.3; Lymphocytes % 43.5; Mean Corp. HGB Concentration 34.2 g/dL (32.0-36.0); Mean Corpuscular Hemoglobin 31.1 pg (27.0-33.0); Mean Platelet Volume 9.1 fL (8.0-11.0); Monocytes % 1.1; Neutrophils % 53.1; Platelet Count 258 x1000/uL (130-400); RBC 3.99 m/cumm (4.50-6.00); RBC Distribution Width 15.3 % (11.8-14.1); White Blood Cell Count 11.55 k/cumm (4.4-10.8)
[2019-03-16 07:23] LABS: Absolute Lymphocyte Count 5.02 k/cumm (1.2-3.4)
[2019-03-16 07:32] LABS: ALT 14 U/L (12-78); AST 11 U/L (15-37); Alkaline Phosphatase 115 U/L (46-116); BUN 23 mg/dL (7-18); Bilirubin, Total 0.9 mg/dL (0.2-1.0); CREATININE 0.86 mg/dL (0.70-1.30); Chloride 97 mmol/L (98-107); Glucose 350 mg/dL (70-100); Potassium 4.3 mmol/L (3.5-5.1); Sodium 135 mmol/L (136-145); Total Protein 6.5 g/dL (6.4-8.2)
[2019-03-16] MEDS: Heparin 500 UNITS/5 ML SYRINGE IV (08:00)
[2019-03-17 10:32] LABS: CEA 29.7 ng/ml
[2019-03-23] MEDS: Normal Saline Flush 10 ML SYR IVP (07:18)
[2019-03-23 07:37] LABS: Abs Immature Grans 0.03 k/cumm (0.0-0.09); Absolute Basophil Count 0.02 k/cumm (0.0-0.2); Absolute Eosinophil Count 0.16 k/cumm (0.0-0.7); Absolute Lymphocyte Count 5.88 k/cumm (1.2-3.4); Absolute Monocyte Count 0.45 k/cumm (0.11-0.7); Absolute Neutrophil Count 3.52 k/cumm (1.2-6.7); Basophils % 0.2; Eosinophils % 1.6; HCT 32.3 % (40.0-50.0); Immature Grans % 0.3; Mean Corp. HGB Concentration 34.1 g/dL (32.0-36.0); Mean Corpuscular Hemoglobin 30.5 pg (27.0-33.0); Mean Corpuscular Volume 89.5 fL (80-95); Monocytes % 4.5; Platelet Count 226 x1000/uL (130-400); RBC 3.61 m/cumm (4.50-6.00); White Blood Cell Count 10.06 k/cumm (4.4-10.8)
[2019-03-23 07:46] LABS: ALT 14 U/L (12-78); AST 9 U/L (15-37); Albumin 2.9 g/dL (3.4-5.0); Alkaline Phosphatase 127 U/L (46-116); Anion Gap 8.2 mmol/L (3-11); BUN 16 mg/dL (7-18); Bilirubin, Total 0.4 mg/dL (0.2-1.0); CO2 26.8 mmol/L (21.0-32.0); CREATININE 0.73 mg/dL (0.70-1.30); Chloride 101 mmol/L (98-107); Glucose 358 mg/dL (70-100); Potassium 4.2 mmol/L (3.5-5.1); Sodium 136 mmol/L (136-145); Total Protein 6.1 g/dL (6.4-8.2)
[2019-03-23 08:20] LABS: Diff Comment Agrees w/ Instrument; Lymphocytes % 58.4
[2019-03-23 08:21] LABS: Howell-Jolly Bodies Present
[2019-03-27] MEDS: Normal Saline Flush 10 ML SYR IVP (07:09)
[2019-03-27 07:40] LABS: Abs Immature Grans 0.01 k/cumm (0.0-0.09); Absolute Basophil Count 0.02 k/cumm (0.0-0.2); Absolute Eosinophil Count 0.12 k/cumm (0.0-0.7); Absolute Lymphocyte Count 4.96 k/cumm (1.2-3.4); Absolute Monocyte Count 0.37 k/cumm (0.11-0.7); Absolute Neutrophil Count 2.05 k/cumm (1.2-6.7); Basophils % 0.3; Eosinophils % 1.6; HCT 33.4 % (40.0-50.0); HGB 11.4 g/dL (13.5-17.5); Immature Grans % 0.1; Lymphocytes % 65.9; Mean Corp. HGB Concentration 34.1 g/dL (32.0-36.0); Mean Corpuscular Hemoglobin 30.9 pg (27.0-33.0); Mean Corpuscular Volume 90.5 fL (80-95); Mean Platelet Volume 8.9 fL (8.0-11.0); Monocytes % 4.9; Neutrophils % 27.2; Platelet Count 226 x1000/uL (130-400); RBC 3.69 m/cumm (4.50-6.00); RBC Distribution Width 16.3 % (11.8-14.1); White Blood Cell Count 7.53 k/cumm (4.4-10.8)
[2019-03-27 07:49] LABS: ALT 14 U/L (12-78); AST 10 U/L (15-37); Albumin 3.1 g/dL (3.4-5.0); Alkaline Phosphatase 134 U/L (46-116); Anion Gap 9.8 mmol/L (3-11); BUN 13 mg/dL (7-18); Bilirubin, Total 0.4 mg/dL (0.2-1.0); CO2 27.2 mmol/L (21.0-32.0); CREATININE 0.76 mg/dL (0.70-1.30); Calcium 8.7 mg/dL (8.5-10.1); Chloride 100 mmol/L (98-107); Glucose 396 mg/dL (70-100); Potassium 4.2 mmol/L (3.5-5.1); Sodium 137 mmol/L (136-145); Total Protein 6.2 g/dL (6.4-8.2)
[2019-03-30] MEDS: Normal Saline Flush 10 ML SYR IVP (07:25)
[2019-03-30 07:31] LABS: Abs Immature Grans 0.01 k/cumm (0.0-0.09); Absolute Basophil Count 0.02 k/cumm (0.0-0.2); Absolute Eosinophil Count 0.12 k/cumm (0.0-0.7); Absolute Lymphocyte Count 5.77 k/cumm (1.2-3.4); Absolute Monocyte Count 0.74 k/cumm (0.11-0.7); Absolute Neutrophil Count 1.13 k/cumm (1.2-6.7); Basophils % 0.3; Eosinophils % 1.5; HCT 33.3 % (40.0-50.0); HGB 11.4 g/dL (13.5-17.5); Immature Grans % 0.1; Mean Corp. HGB Concentration 34.2 g/dL (32.0-36.0); Mean Corpuscular Hemoglobin 31.2 pg (27.0-33.0); Mean Corpuscular Volume 91.2 fL (80-95); Mean Platelet Volume 8.8 fL (8.0-11.0); Monocytes % 9.5; Neutrophils % 14.5; Platelet Count 273 x1000/uL (130-400); RBC 3.65 m/cumm (4.50-6.00); RBC Distribution Width 16.7 % (11.8-14.1); White Blood Cell Count 7.79 k/cumm (4.4-10.8)
[2019-03-30 07:54] LABS: ALT 17 U/L (12-78); AST 11 U/L (15-37); Alkaline Phosphatase 127 U/L (46-116); Anion Gap 8.4 mmol/L (3-11); BUN 16 mg/dL (7-18); Bilirubin, Total 0.3 mg/dL (0.2-1.0); CO2 28.6 mmol/L (21.0-32.0); CREATININE 0.68 mg/dL (0.70-1.30); Chloride 104 mmol/L (98-107); Glucose 216 mg/dL (70-100); Potassium 4.1 mmol/L (3.5-5.1); Sodium 141 mmol/L (136-145); Total Protein 6.3 g/dL (6.4-8.2)
[2019-03-30 08:29] LABS: Anisocytosis 1+; Diff Comment Diff Reviewed; Lymphocytes % 74.1; Polychromasia Present
[2019-03-30 10:52] LABS: CEA 24.4 ng/ml
[2019-03-31 09:57] LABS: CEA 19.2 ng/ml
[2019-04-03] MEDS: Normal Saline Flush 10 ML SYR IVP (07:10)
[2019-04-03 07:19] LABS: Abs Immature Grans 0.07 k/cumm (0.0-0.09); Absolute Eosinophil Count 0.04 k/cumm (0.0-0.7); Absolute Lymphocyte Count 5.72 k/cumm (1.2-3.4); Absolute Monocyte Count 1.89 k/cumm (0.11-0.7); Absolute Neutrophil Count 5.79 k/cumm (1.2-6.7); Basophils % 0.1; Eosinophils % 0.3; HCT 31.1 % (40.0-50.0); HGB 10.5 g/dL (13.5-17.5); Immature Grans % 0.5; Lymphocytes % 42.3; Mean Corp. HGB Concentration 33.8 g/dL (32.0-36.0); Mean Corpuscular Hemoglobin 31.3 pg (27.0-33.0); Mean Corpuscular Volume 92.6 fL (80-95); Mean Platelet Volume 8.6 fL (8.0-11.0); Neutrophils % 42.8; Platelet Count 290 x1000/uL (130-400); RBC 3.36 m/cumm (4.50-6.00); RBC Distribution Width 16.7 % (11.8-14.1); White Blood Cell Count 13.53 k/cumm (4.4-10.8)
[2019-04-03 07:40] LABS: ALT 15 U/L (12-78); AST 8 U/L (15-37); Albumin 2.7 g/dL (3.4-5.0); Alkaline Phosphatase 101 U/L (46-116); Anion Gap 11.4 mmol/L (3-11); BUN 13 mg/dL (7-18); Bilirubin, Total 0.5 mg/dL (0.2-1.0); CO2 25.6 mmol/L (21.0-32.0); CREATININE 0.66 mg/dL (0.70-1.30); Calcium 8.9 mg/dL (8.5-10.1); Chloride 99 mmol/L (98-107); Glucose 102 mg/dL (70-100); Potassium 3.8 mmol/L (3.5-5.1); Sodium 136 mmol/L (136-145); Total Protein 6.3 g/dL (6.4-8.2)
[2019-04-03 07:48] LABS: Absolute Basophil Count 0.01 k/cumm (0.0-0.2)
[2019-04-03 08:09] LABS: Anisocytosis 1+; Diff Comment Agrees w/ Instrument; Hypochromasia 1+
[2019-04-03 08:10] LABS: Polychromasia Present
== END 2019-04-05 23:59 | disposition home or self-care (01) ==
LOC: INF 01:45
PROVIDERS: PCP Family Medicine; Visit Provider Internal Medicine Hematology & Oncology
DX: C16.1 Malignant neoplasm of fundus of stomach (principal); C78.7 Secondary malignant neoplasm of liver and intrahepatic bile duct; Z45.2 Encounter for adjustment and management of vascular access device
CPT/HCPCS: 36591; 80053; 96523; 82378; 85025

== ENCOUNTER 2019-05-01 02:22 | Outpatient (RCR) | payer OTHER, SELFPAY ==
[2019-04-17] MEDS: Normal Saline Flush 10 ML SYR IVP (07:18)
[2019-04-17 07:29] LABS: Absolute Basophil Count 0.03 k/cumm (0.0-0.2); Absolute Eosinophil Count 0.08 k/cumm (0.0-0.7); Absolute Lymphocyte Count 3.85 k/cumm (1.2-3.4); Absolute Monocyte Count 0.31 k/cumm (0.11-0.7); Basophils % 0.6; Eosinophils % 1.5; HCT 31.6 % (40.0-50.0); HGB 10.5 g/dL (13.5-17.5); Lymphocytes % 74.5; Mean Corp. HGB Concentration 33.2 g/dL (32.0-36.0); Mean Corpuscular Hemoglobin 30.6 pg (27.0-33.0); Mean Corpuscular Volume 92.1 fL (80-95); Mean Platelet Volume 8.8 fL (8.0-11.0); Neutrophils % 17.4; Platelet Count 176 x1000/uL (130-400); RBC 3.43 m/cumm (4.50-6.00); RBC Distribution Width 17.6 % (11.8-14.1); White Blood Cell Count 5.17 k/cumm (4.4-10.8)
[2019-04-17 07:44] LABS: Anisocytosis 1+; Polychromasia Present
[2019-04-17 07:45] LABS: ALT 17 U/L (12-78); AST 15 U/L (15-37); Albumin 2.9 g/dL (3.4-5.0); Alkaline Phosphatase 104 U/L (46-116); BUN 15 mg/dL (7-18); Bilirubin, Total 0.3 mg/dL (0.2-1.0); CREATININE 0.69 mg/dL (0.70-1.30); Calcium 8.7 mg/dL (8.5-10.1); Chloride 104 mmol/L (98-107); Glucose 162 mg/dL (70-100); Potassium 3.9 mmol/L (3.5-5.1); Sodium 141 mmol/L (136-145)
[2019-04-20 11:14] LABS: CEA 8.7 ng/ml
[2019-04-24] MEDS: Normal Saline Flush 10 ML SYR IVP (07:27)
[2019-04-24 07:47] LABS: HCT 32.8 % (40.0-50.0); HGB 11.1 g/dL (13.5-17.5); Mean Corp. HGB Concentration 33.8 g/dL (32.0-36.0); Mean Corpuscular Hemoglobin 31.5 pg (27.0-33.0); Mean Corpuscular Volume 93.2 fL (80-95); Mean Platelet Volume 8.8 fL (8.0-11.0); Platelet Count 190 x1000/uL (130-400); RBC 3.52 m/cumm (4.50-6.00)
[2019-04-24 08:09] LABS: ALT 19 U/L (12-78); AST 13 U/L (15-37); Albumin 2.9 g/dL (3.4-5.0); Alkaline Phosphatase 119 U/L (46-116); Anion Gap 9.3 mmol/L (3-11); BUN 14 mg/dL (7-18); Bilirubin, Total 0.4 mg/dL (0.2-1.0); CO2 26.7 mmol/L (21.0-32.0); CREATININE 0.59 mg/dL (0.70-1.30); Calcium 8.6 mg/dL (8.5-10.1); Chloride 103 mmol/L (98-107); Glucose 218 mg/dL (70-100); Potassium 3.5 mmol/L (3.5-5.1); Sodium 139 mmol/L (136-145); Total Protein 6.2 g/dL (6.4-8.2)
[2019-04-24 08:36] LABS: Absolute Lymphocyte Count 3.54 k/cumm (1.2-3.4); Absolute Neutrophil Count 1.18 k/cumm (1.2-6.7)
[2019-04-24 08:37] LABS: Absolute Basophil Count 0.06 k/cumm (0.0-0.2); Absolute Monocyte Count 0.71 k/cumm (0.11-0.7); Anisocytosis 2+; Diff Comment Manual Differential; Nucleated RBC 1 /100WBC; Polychromasia Present
[2019-04-27 10:24] LABS: CEA 7.4 ng/ml
== END 2019-05-06 23:59 | disposition home or self-care (01) ==
LOC: INF 02:22
PROVIDERS: PCP Family Medicine; Visit Provider Internal Medicine Hematology & Oncology
DX: C16.1 Malignant neoplasm of fundus of stomach (principal); C78.7 Secondary malignant neoplasm of liver and intrahepatic bile duct; Z45.2 Encounter for adjustment and management of vascular access device
CPT/HCPCS: 36591; 80053; 82378; 85025

== ENCOUNTER 2019-05-21 00:13 | Outpatient (CLI) | payer OTHER, MEDICARE, SELFPAY ==
[2019-05-21] MEDS: Omnipaque 350 MG/ML 100 ML BTL IJ (10:12)
[2019-05-21] MEDS: Omnipaque 350 MG/ML 50 ML BTL PO (10:13)
[2019-05-21] MEDS: Breeza Beverage 473 ML BTL PO (10:14)
--- NOTE | 2019-05-21 10:14 | DI.CT_ITS ---
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 The examination was compared with CT of 02/07/2019. The patient reportedly has a history of gastric carcinoma. There is evidence of diffuse central lobular emphysema and there are pulmonary fibrotic changes predominantly involving the lung bases. A 2-3 mm noncalcified pulmonary nodule is noted in the right upper lobe unchanged from the previous study. Tracheobronchial tree appears intact. No mediastinal or hilar adenopathy. No evidence of pulmonary embolic disease. Thoracic aorta is unremarkable except for some atheromatous calcified changes. There is heterogeneous attenuation of the liver on arterial and venous phase imaging which is a nonspecific finding. No focal mass identified. Spleen is unremarkable. There is gastroesophageal reflux. Stomach is mildly distended. No definite focal gastric mass seen. Abdominal aorta is of normal diameter. Extensive atheromatous calcific plaque noted throughout the abdominal circulation. No significant abdominal wall hernia. No abdominal or pelvic adenopathy. Adrenals and kidneys appear normal. Pancreas is atrophic but otherwise unremarkable. No significant abdominal wall hernia seen. Note is made of questionable wall thickening of the rectosigmoid. There is wall thickening of the urinary bladder. Correlation requested regarding any prior history of radiation. The findings may represent chronic bladder outlet obstruction and/or cystitis. Colonic findings are nonspecific and may represent colitis of uncertain etiology. Appendix is normal. No evidence of bowel obstruction or additional focal bowel lesions. No bony destructive lesion identified in region surveyed of the chest, abdomen and pelvis CONCLUSION: No specific evidence of metastatic disease in a patient with reported history of gastric carcinoma. Additional findings as noted above include: 1. Nonspecific heterogeneous hepatic attenuation, an area of questionable focal abnormality of the liver noted in the right lobe on previous CT is less clearly seen on today's examination. 2. Urinary bladder wall thickening, nonspecific, cystitis vs bladder outlet obstruction. 3. Wall thickening of rectosigmoid, consider colitis. 4. Marked gastroesophageal reflux.
== END 2019-05-21 00:33 ==
PROVIDERS: PCP Family Medicine; Visit Provider Registered Nurse Oncology
DX: C16.1 Malignant neoplasm of fundus of stomach (principal); J43.9 Emphysema, unspecified; R91.1 Solitary pulmonary nodule; K21.9 Gastro-esophageal reflux disease without esophagitis; K76.89 Other specified diseases of liver; N32.89 Other specified disorders of bladder
CPT/HCPCS: 74177; 71260; J3490; Q9967

== ENCOUNTER 2019-05-29 03:09 | Outpatient (RCR) | payer OTHER, SELFPAY ==
[2019-05-08] MEDS: Normal Saline Flush 10 ML SYR IVP (07:40)
[2019-05-08 07:58] LABS: HCT 30.9 % (40.0-50.0); HGB 10.7 g/dL (13.5-17.5); Mean Corp. HGB Concentration 34.6 g/dL (32.0-36.0); Mean Corpuscular Hemoglobin 32.7 pg (27.0-33.0); Mean Corpuscular Volume 94.5 fL (80-95); Mean Platelet Volume 9.9 fL (8.0-11.0); RBC 3.27 m/cumm (4.50-6.00); White Blood Cell Count 16.19 k/cumm (4.4-10.8)
[2019-05-08 08:12] LABS: ALT 24 U/L (12-78); AST 19 U/L (15-37); Alkaline Phosphatase 157 U/L (46-116); Anion Gap 7.5 mmol/L (3-11); BUN 10 mg/dL (7-18); Bilirubin, Total 0.4 mg/dL (0.2-1.0); CO2 29.5 mmol/L (21.0-32.0); CREATININE 0.61 mg/dL (0.70-1.30); Calcium 8.7 mg/dL (8.5-10.1); Chloride 102 mmol/L (98-107); Glucose 199 mg/dL (70-100); Potassium 3.5 mmol/L (3.5-5.1); Sodium 139 mmol/L (136-145); Total Protein 6.2 g/dL (6.4-8.2)
[2019-05-08 08:34] LABS: Absolute Neutrophil Count 9.07 k/cumm (1.2-6.7); Platelet Count 70 x1000/uL (130-400)
[2019-05-08 08:35] LABS: Absolute Basophil Count 0.16 k/cumm (0.0-0.2); Absolute Eosinophil Count 0.65 k/cumm (0.0-0.7); Absolute Lymphocyte Count 4.86 k/cumm (1.2-3.4); Absolute Monocyte Count 0.16 k/cumm (0.11-0.7)
[2019-05-08 08:36] LABS: Anisocytosis 1+; Diff Comment Manual Differential; Other Cells 1; Polychromasia Present
[2019-05-11 09:37] LABS: CEA 4.6 ng/ml
[2019-05-15] MEDS: Normal Saline Flush 10 ML SYR IVP (06:50)
[2019-05-15 07:20] LABS: Abs Immature Grans 0.06 k/cumm (0.0-0.09); Absolute Basophil Count 0.04 k/cumm (0.0-0.2); Absolute Eosinophil Count 0.16 k/cumm (0.0-0.7); Absolute Lymphocyte Count 3.82 k/cumm (1.2-3.4); Absolute Monocyte Count 0.99 k/cumm (0.11-0.7); Absolute Neutrophil Count 6.69 k/cumm (1.2-6.7); Basophils % 0.3; Eosinophils % 1.4; HCT 31.8 % (40.0-50.0); HGB 10.8 g/dL (13.5-17.5); Immature Grans % 0.5; Lymphocytes % 32.5; Mean Corpuscular Hemoglobin 32.5 pg (27.0-33.0); Mean Corpuscular Volume 95.8 fL (80-95); Mean Platelet Volume 9.1 fL (8.0-11.0); Monocytes % 8.4; Neutrophils % 56.9; Platelet Count 243 x1000/uL (130-400); RBC 3.32 m/cumm (4.50-6.00); White Blood Cell Count 11.75 k/cumm (4.4-10.8)
[2019-05-15 07:36] LABS: ALT 20 U/L (12-78); AST 13 U/L (15-37); Alkaline Phosphatase 146 U/L (46-116); Anion Gap 8.8 mmol/L (3-11); BUN 15 mg/dL (7-18); Bilirubin, Total 0.3 mg/dL (0.2-1.0); CO2 28.2 mmol/L (21.0-32.0); CREATININE 0.66 mg/dL (0.70-1.30); Calcium 8.5 mg/dL (8.5-10.1); Chloride 105 mmol/L (98-107); Glucose 125 mg/dL (70-100); Potassium 3.9 mmol/L (3.5-5.1); Sodium 142 mmol/L (136-145); Total Protein 6.3 g/dL (6.4-8.2)
[2019-05-18 09:28] LABS: CEA 4.5 ng/ml
[2019-05-21] MEDS: Heparin 500 UNITS/5 ML SYRINGE IV (10:51)
[2019-05-29 07:31] LABS: Abs Immature Grans 0.01 k/cumm (0.0-0.09); Absolute Basophil Count 0.02 k/cumm (0.0-0.2); Absolute Eosinophil Count 0.18 k/cumm (0.0-0.7); Absolute Lymphocyte Count 2.39 k/cumm (1.2-3.4); Absolute Monocyte Count 0.54 k/cumm (0.11-0.7); Basophils % 0.3; Eosinophils % 3.1; HCT 30.8 % (40.0-50.0); HGB 10.5 g/dL (13.5-17.5); Immature Grans % 0.2; Lymphocytes % 40.9; Mean Corp. HGB Concentration 34.1 g/dL (32.0-36.0); Mean Corpuscular Hemoglobin 33.5 pg (27.0-33.0); Mean Corpuscular Volume 98.4 fL (80-95); Mean Platelet Volume 9.4 fL (8.0-11.0); Monocytes % 9.2; Neutrophils % 46.3; Platelet Count 108 x1000/uL (130-400); RBC 3.13 m/cumm (4.50-6.00); RBC Distribution Width 18.8 % (11.8-14.1); White Blood Cell Count 5.84 k/cumm (4.4-10.8)
[2019-05-29] MEDS: Normal Saline Flush 10 ML SYR IVP (07:35)
[2019-05-29 07:44] LABS: ALT 21 U/L (12-78); AST 18 U/L (15-37); Albumin 3.1 g/dL (3.4-5.0); Alkaline Phosphatase 120 U/L (46-116); Anion Gap 7.6 mmol/L (3-11); BUN 17 mg/dL (7-18); Bilirubin, Total 0.4 mg/dL (0.2-1.0); CO2 27.4 mmol/L (21.0-32.0); CREATININE 0.68 mg/dL (0.70-1.30); Calcium 8.8 mg/dL (8.5-10.1); Chloride 105 mmol/L (98-107); Glucose 194 mg/dL (70-100); Potassium 4.4 mmol/L (3.5-5.1); Sodium 140 mmol/L (136-145); Total Protein 6.3 g/dL (6.4-8.2)
[2019-06-01 09:23] LABS: CEA 4.5 ng/ml
== END 2019-06-06 23:59 | disposition home or self-care (01) ==
LOC: INF 03:09
PROVIDERS: PCP Family Medicine; Visit Provider Internal Medicine Hematology & Oncology
DX: C16.1 Malignant neoplasm of fundus of stomach (principal); C78.7 Secondary malignant neoplasm of liver and intrahepatic bile duct; Z45.2 Encounter for adjustment and management of vascular access device
CPT/HCPCS: 36591; 80053; 96523; 82378; 85025

== ENCOUNTER 2019-06-03 01:02 | Outpatient (CLI) | payer OTHER, MEDICARE, SELFPAY ==
--- NOTE | 2019-06-03 09:10 | MERGE_ITS ---
*[facility]* *[facility]* [address] [place] [address] Date of study: 06/03/2019 Transthoracic Echocardiography M-mode, complete 2D, complete spectral Doppler, and color Doppler *STUDY CONCLUSIONS* Summary: 1. Left ventricle: The cavity size was normal. Systolic function was normal. The estimated ejection fraction was 60-65%. Findings consistent with diastolic dysfunction. Doppler parameters are consistent with high ventricular filling pressure. 2. Aortic valve: There was mild regurgitation. 3. Mitral valve: There was mild regurgitation. 4. Left atrium: The atrium was mildly dilated. 5. Right ventricle: The cavity size was normal. Wall thickness was normal. Systolic function was normal. 6. Atrial septum: No defect or patent foramen ovale was identified. 7. Pulmonary arteries: Pulmonary systolic pressure was in the range of 35mm Hg to 45mm Hg. 8. Inferior vena cava: The vessel was patent and normal in size. The respirophasic diameter changes were in the normal range (greater than or equal to 50%), consistent with normal central venous pressure. 9. Baseline ECG: Normal sinus rhythm. *PATIENT PRESENTATION* Height: 162.6cm (64in ) S/D Pressure: 150 / 60 Weight: 52.2kg (114.8lb ) BSA: 1.53m^2 Test start time: 09:15 AM. Test stop time: 10:15 AM. CONSULTING Yung Quach ORDERING Yung Quach REFERRING Yung Quach PERFORMING Unknown PERFORMING [facility] MIRROR INSTALLER Candace Lester, RT EvansR)(CT), KYLE *PROCEDURE DATA* Procedure information: The patient was identified by two identifiers. This study was interpreted by [facility]. Pertinent images and digital data are archived for permanent storage and are available for subsequent review. Comparison was made to the study of 01/14/2019. Study status: Routine. Transthoracic echocardiography. M-mode, complete 2D, complete spectral Doppler, and color Doppler. A Transthoracic Echocardiogram was performed. Scanning was performed from the parasternal, apical, subcostal, and suprasternal notch acoustic windows. Images were obtained using an [id number] cardiac ultrasound machine. Image quality was good. Study completion: The patient tolerated the procedure well. History: PMH: Reassessment of cardiac function in patient receiving Herceptin. Metastasis from gastric cancer c79.9 c16.9. *CARDIAC ANATOMY* Left ventricle: The cavity size was normal. Systolic function was normal. The estimated ejection fraction was 60-65%. The tissue Doppler parameters were normal. Findings consistent with diastolic dysfunction. Doppler parameters are consistent with high ventricular filling pressure. Aortic valve: [place]leaf[place]. Doppler: There was no stenosis. There was mild regurgitation. VTI ratio of LVOT to aortic valve: 0.61. Valve area (VTI): 2cm^2. Indexed valve area (VTI): 1.3cm^2/m^2. Peak velocity ratio of LVOT to aortic valve: 0.64. Valve area (Vmax): 2cm^2. Indexed valve area (Vmax): 1.3cm^2/m^2. Mean velocity ratio of LVOT to aortic valve: 0.62. Valve area (Vmean): 2cm^2. Indexed valve area (Vmean): 1.3cm^2/m^2. Mean gradient (S): 5.3mm Hg. Peak gradient (S): 9.5mm Hg. Aorta: Aortic root: The aortic root was normal in size. Ascending aorta: The ascending aorta was normal in size. Mitral valve: Doppler: There was no evidence for stenosis. There was mild regurgitation. Valve area by pressure half-time: 4.9cm^2. Indexed valve area by pressure half-time: 3.2cm^2/m^2. Peak gradient (D): 4.6mm Hg. Left atrium: The atrium was mildly dilated. Atrial septum: No defect or patent foramen ovale was identified. Right ventricle: The cavity size was normal. Wall thickness was normal. Systolic function was normal. Pulmonic valve: Doppler: There was no evidence for stenosis. There was mild regurgitation. Peak gradient (S): 5.2mm Hg. Tricuspid valve: Doppler: There was mild regurgitation. Pulmonary artery: Poorly visualized. Pulmonary systolic pressure was in the range of 35mm Hg to 45mm Hg. Right atrium: The atrium was normal in size. Pericardium: There was no pericardial effusion. Systemic veins: Inferior vena cava: Well visualized. The vessel was patent and normal in size. The respirophasic diameter changes were in the normal range (greater than or equal to 50%), consistent with normal central venous pressure. Baseline ECG: Normal sinus rhythm. Measurements Left ventricle Value 01/14/2019 Reference LV ID, ED, PLAX 4.9 cm 4.7 3.5 - 6.0 LV ID, ES, PLAX 3.2 cm 3.3 2.1 - 4.0 LV PW thickness, ED, PLAX 0.9 cm 1.1 LV end-diastolic volume, 70 ml 106 1-p A2C LV ejection fraction, 1-p 67 % 71 A2C LV end-diastolic volume, 76 ml 73 1-p A4C LV ejection fraction, 1-p 52 % 67 A4C LV e', lateral 0.091 m/sec 0.098 LV E/e', lateral 12 13 LV e', medial 0.074 m/sec 0.068 LV E/e', medial 15 18 LV e', average 0.082 m/sec 0.083 LV E/e', average 13 15 Ventricular septum Value 01/14/2019 Reference IVS thickness, ED, PLAX 1.2 cm 1.3 LVOT Value 01/14/2019 Reference LVOT ID, A-P 2.0 cm 2.0 LVOT area 3.2 cm^2 3.1 LVOT peak velocity, S 0.98 m/sec 0.84 LVOT mean velocity, S 0.68 m/sec 0.51 LVOT VTI, S 23.9 cm 21.4 LVOT peak gradient, S 3.9 mm Hg 2.8 LVOT mean gradient, S 2.1 mm Hg 1.3 Stroke volume (SV), LVOT 76 ml 66 DP Stroke index (SV/bsa), 50 ml/m^2 43 LVOT DP Aortic valve Value 01/14/2019 Reference Aortic valve peak 1.5 m/sec 1.6 velocity, S Aortic valve mean 1.1 m/sec 1.1 velocity, S Aortic valve VTI, S 39.0 cm 43.0 Aortic mean gradient, S 5.3 mm Hg 5.5 Aortic peak gradient, S 9.5 mm Hg 9.9 VTI ratio, LVOT/AV 0.61 0.5 Aortic valve area, VTI 2 cm^2 1.5 Velocity ratio, peak, 0.64 0.53 LVOT/AV Aortic valve area, peak 2 cm^2 1.6 velocity Velocity ratio, mean, 0.62 0.46 LVOT/AV Aortic valve area, mean 2 cm^2 1.4 velocity Aortic valve area/bsa, 1.3 cm^2/m^2 0.9 mean velocity Aorta Value 01/14/2019 Reference Aortic root ID, ED 2.9 cm 2.8 Ascending aorta ID, A-P, S 3.1 cm 3.0 Left atrium Value 01/14/2019 Reference LA ID, A-P, ES 3.8 cm 3.4 LA ID/bsa, A-P (H) 2.5 cm/m^2 2.2 <=2.2 LA volume/bsa, ES, 1-p A4C 47 ml/m^2 47 LA volume, ES, 2-p 60 ml 61 LA volume/bsa, ES, 2-p 39 ml/m^2 39 LA/aortic root ratio 1.3 1.19 Mitral valve Value 01/14/2019 Reference Mitral E-wave peak 1.07 m/sec 1.23 velocity Mitral A-wave peak 0.9 m/sec 0.74 velocity Mitral deceleration time 154 ms 165 150 - 230 Mitral pressure half-time 45 ms 48 Mitral peak gradient, D 4.6 mm Hg 6 Mitral E/A ratio, peak 1.19 1.67 Mitral valve area, PHT, DP 4.9 cm^2 4.6 Pulmonary veins Value 01/14/2019 Reference Pulmonary vein peak 0.58 m/sec 0.61 velocity, S Pulmonary vein peak 0.62 m/sec 0.96 velocity, D Pulmonary vein velocity 0.93 0.64 ratio, peak, S/D Tricuspid valve Value 01/14/2019 Reference Tricuspid regurg peak 3.1 m/sec 3.3 velocity Tricuspid peak RV-RA 39.2 mm Hg 44.9 gradient Right atrium Value 01/14/2019 Reference RA area, ES, A4C 11.7 cm^2 11.4 8.3 - 19.5 Pulmonic valve Value 01/14/2019 Reference Pulmonic peak gradient, S 5.2 mm Hg 4.5 Legend: (L) and (H) estela values outside specified reference range. I have personally reviewed the images and have reviewed and edited the reported findings. Electronically signed by Ranjan Martinez MD 06/03/2019 16:58
== END 2019-06-03 01:22 ==
PROVIDERS: PCP Family Medicine; Visit Provider Internal Medicine Hematology & Oncology
DX: I50.1 Left ventricular failure, unspecified (principal); I35.1 Nonrheumatic aortic (valve) insufficiency; C79.9 Secondary malignant neoplasm of unspecified site; C16.9 Malignant neoplasm of stomach, unspecified
CPT/HCPCS: 93306

== ENCOUNTER 2019-07-03 02:15 | Outpatient (RCR) | payer OTHER, MEDICARE, SELFPAY ==
[2019-06-12 07:45] LABS: HCT 30.1 % (40.0-50.0); HGB 10.1 g/dL (13.5-17.5); Mean Corp. HGB Concentration 33.6 g/dL (32.0-36.0); Mean Corpuscular Volume 98.4 fL (80-95); Mean Platelet Volume 9.5 fL (8.0-11.0); Platelet Count 69 x1000/uL (130-400); RBC 3.06 m/cumm (4.50-6.00); RBC Distribution Width 18.2 % (11.8-14.1); White Blood Cell Count 3.46 k/cumm (4.4-10.8)
[2019-06-12] MEDS: Normal Saline Flush 10 ML SYR IVP (07:46)
[2019-06-12 08:12] LABS: ALT 27 U/L (16-63); AST 29 U/L (15-37); Albumin 3.1 g/dL (3.4-5.0); Alkaline Phosphatase 112 U/L (46-116); Anion Gap 9.1 mmol/L (3-11); BUN 14 mg/dL (7-18); Bilirubin, Total 0.4 mg/dL (0.2-1.0); CO2 26.9 mmol/L (21.0-32.0); CREATININE 0.65 mg/dL (0.70-1.30); Calcium 8.6 mg/dL (8.5-10.1); Chloride 107 mmol/L (98-107); Glucose 93 mg/dL (70-100); Potassium 3.6 mmol/L (3.5-5.1); Sodium 143 mmol/L (136-145)
[2019-06-12 08:41] LABS: Absolute Lymphocyte Count 1.76 k/cumm (1.2-3.4); Absolute Neutrophil Count 1.38 k/cumm (1.2-6.7); Atypical Lymphocytes % 3
[2019-06-12 08:42] LABS: Absolute Monocyte Count 0.21 k/cumm (0.11-0.7); Anisocytosis 3+; Diff Comment Manual Differential; Macrocytosis 2+
[2019-06-15 10:48] LABS: CEA 4.9 ng/ml
[2019-06-19] MEDS: Normal Saline Flush 10 ML SYR IVP (07:37)
[2019-06-19 07:46] LABS: Abs Immature Grans 0.01 k/cumm (0.0-0.09); Absolute Basophil Count 0.06 k/cumm (0.0-0.2); Absolute Eosinophil Count 0.18 k/cumm (0.0-0.7); Absolute Monocyte Count 0.67 k/cumm (0.11-0.7); Absolute Neutrophil Count 0.59 k/cumm (1.2-6.7); Basophils % 1.8; Eosinophils % 5.3; HCT 32.3 % (40.0-50.0); HGB 11.1 g/dL (13.5-17.5); Immature Grans % 0.3; Lymphocytes % 55.7; Mean Corp. HGB Concentration 34.4 g/dL (32.0-36.0); Mean Corpuscular Volume 99.1 fL (80-95); Mean Platelet Volume 9.1 fL (8.0-11.0); Monocytes % 19.6; Neutrophils % 17.3; Platelet Count 135 x1000/uL (130-400); RBC 3.26 m/cumm (4.50-6.00); RBC Distribution Width 17.8 % (11.8-14.1); White Blood Cell Count 3.41 k/cumm (4.4-10.8)
[2019-06-19 07:59] LABS: ALT 24 U/L (16-63); AST 18 U/L (15-37); Albumin 3.2 g/dL (3.4-5.0); Alkaline Phosphatase 136 U/L (46-116); Anion Gap 7.9 mmol/L (3-11); Anisocytosis 1+; BUN 12 mg/dL (7-18); Bilirubin, Total 0.5 mg/dL (0.2-1.0); CO2 28.1 mmol/L (21.0-32.0); CREATININE 0.63 mg/dL (0.70-1.30); Calcium 8.5 mg/dL (8.5-10.1); Chloride 104 mmol/L (98-107); Diff Comment Diff Reviewed; Glucose 199 mg/dL (70-100); Polychromasia Present; Sodium 140 mmol/L (136-145); Total Protein 6.3 g/dL (6.4-8.2)
[2019-06-22 14:50] LABS: CEA 5.2 ng/ml
[2019-06-26] MEDS: Normal Saline Flush 10 ML SYR IVP (07:20)
[2019-06-26 07:36] LABS: Abs Immature Grans 0.01 k/cumm (0.0-0.09); Absolute Basophil Count 0.04 k/cumm (0.0-0.2); Absolute Eosinophil Count 0.08 k/cumm (0.0-0.7); Absolute Lymphocyte Count 2.29 k/cumm (1.2-3.4); Absolute Monocyte Count 0.97 k/cumm (0.11-0.7); Absolute Neutrophil Count 0.78 k/cumm (1.2-6.7); Eosinophils % 1.9; HCT 31.7 % (40.0-50.0); HGB 10.9 g/dL (13.5-17.5); Immature Grans % 0.2; Lymphocytes % 54.9; Mean Corp. HGB Concentration 34.4 g/dL (32.0-36.0); Mean Corpuscular Hemoglobin 33.7 pg (27.0-33.0); Mean Corpuscular Volume 98.1 fL (80-95); Mean Platelet Volume 8.9 fL (8.0-11.0); Monocytes % 23.3; Neutrophils % 18.7; RBC 3.23 m/cumm (4.50-6.00); White Blood Cell Count 4.17 k/cumm (4.4-10.8)
[2019-06-26 07:44] LABS: ALT 17 U/L (16-63); AST 18 U/L (15-37); Alkaline Phosphatase 121 U/L (46-116); Anion Gap 8.5 mmol/L (3-11); BUN 18 mg/dL (7-18); Bilirubin, Total 0.6 mg/dL (0.2-1.0); CO2 27.5 mmol/L (21.0-32.0); CREATININE 0.67 mg/dL (0.70-1.30); Calcium 8.7 mg/dL (8.5-10.1); Chloride 106 mmol/L (98-107); Glucose 116 mg/dL (70-100); Potassium 3.9 mmol/L (3.5-5.1); Sodium 142 mmol/L (136-145); Total Protein 6.3 g/dL (6.4-8.2)
[2019-06-26 07:59] LABS: Anisocytosis 1+; Diff Comment Agrees w/ Instrument; Platelet Count 154 x1000/uL (130-400)
[2019-06-29 10:43] LABS: CEA 5.4 ng/ml
[2019-07-03] MEDS: Normal Saline Flush 10 ML SYR IVP (07:57)
[2019-07-03 08:14] LABS: Abs Immature Grans 0.03 k/cumm (0.0-0.09); Absolute Basophil Count 0.02 k/cumm (0.0-0.2); Absolute Eosinophil Count 0.09 k/cumm (0.0-0.7); Absolute Lymphocyte Count 2.27 k/cumm (1.2-3.4); Absolute Monocyte Count 0.72 k/cumm (0.11-0.7); Absolute Neutrophil Count 5.82 k/cumm (1.2-6.7); Basophils % 0.2; HCT 31.8 % (40.0-50.0); Immature Grans % 0.3; Lymphocytes % 25.4; Mean Corp. HGB Concentration 34.6 g/dL (32.0-36.0); Mean Corpuscular Hemoglobin 33.5 pg (27.0-33.0); Mean Platelet Volume 8.9 fL (8.0-11.0); Neutrophils % 65.1; Platelet Count 207 x1000/uL (130-400); RBC 3.28 m/cumm (4.50-6.00); RBC Distribution Width 14.7 % (11.8-14.1); White Blood Cell Count 8.95 k/cumm (4.4-10.8)
[2019-07-03 08:25] LABS: ALT 13 U/L (16-63); AST 12 U/L (15-37); Alkaline Phosphatase 140 U/L (46-116); Anion Gap 6.8 mmol/L (3-11); BUN 18 mg/dL (7-18); Bilirubin, Total 0.4 mg/dL (0.2-1.0); CO2 28.2 mmol/L (21.0-32.0); CREATININE 0.78 mg/dL (0.70-1.30); Calcium 8.8 mg/dL (8.5-10.1); Chloride 101 mmol/L (98-107); Glucose 309 mg/dL (70-100); Potassium 4.3 mmol/L (3.5-5.1); Sodium 136 mmol/L (136-145); Total Protein 6.7 g/dL (6.4-8.2)
[2019-07-06 15:30] LABS: CEA 8.2 ng/ml
== END 2019-07-06 23:59 | disposition home or self-care (01) ==
LOC: INF 02:15
PROVIDERS: PCP Family Medicine; Visit Provider Internal Medicine Hematology & Oncology
DX: C78.7 Secondary malignant neoplasm of liver and intrahepatic bile duct (principal); Z45.2 Encounter for adjustment and management of vascular access device
CPT/HCPCS: 36591; 80053; 82378; 85025

== ENCOUNTER 2019-07-24 16:16 | Emergency (ER) | payer OTHER, MEDICARE, SELFPAY ==
[2019-07-24 16:22] VITALS: BP 112/82; PULSE 92; RESP 20; TEMP 36.7; O2SAT 96
--- NOTE | 2019-07-24 16:31 | W.ED.GENAD ---
Discharge Plan Disposition Patient Disposition: HOME Condition: Fair Discharge Details Chief Complaint: RespSymp Clinical Impression: URI (upper respiratory infection) Primary Care Provider: Curtis Chavarria ED Provider: Catie Degroot Rossiter Meds and New Rx's Prescriptions: New amoxicillin-pot clavulanate [Augmentin] 250-62.5 mg/5 mL suspension for reconstitution 17.5 ml PO BID 7 Days Qty: 245 RF: 0 Continued amoxicillin-pot clavulanate 875-125 mg tablet 1 tab PO Q12H Qty: 14 RF: 0 nitroglycerin 0.4 mg tablet, sublingual 0.4 mg SL ONCE Qty: 30 RF: 0 Januvia 100 mg tablet 100 mg PO DAILY Qty: 30 RF: 11 cholecalciferol (vitamin D3) 2,000 unit capsule 2,000 unit PO DAILY RF: 0 prochlorperazine maleate 10 mg tablet 10 mg PO DAILY PRNRF: 0 (DME) lancets [Accu-Chek Softclix Lancets] misc See Dose Instructions .ROUTE .MEDSUPPLY Qty: 200 RF: 4 (DME) FreeStyle Lite Strips strip See Dose Instructions .ROUTE .MEDSUPPLY Qty: 100 RF: 11 (DME) blood-glucose meter [FreeStyle [place] Lite] kit See Dose Instructions .ROUTE .MEDSUPPLY Qty: 1 RF: 0 (DME) pen needle, diabetic [Lite Touch Insulin Pen [place]] 31 gauge x 3/16 needle See Rx Instructions .ROUTE .MEDSUPPLY Qty: 100 RF: 3 glipizide 5 mg tablet 5 mg PO BID PRN (Reason: t- [id number]) RF: 0 ferrous sulfate 325 mg (65 mg iron) tablet See Rx Instructions PO DAILY RF: 0 multivitamin [Multiple Vitamins] Tablet 1 tab PO DAILY RF: 0 sucralfate 1 gram Tablet 1 g PO Q6H Qty: 120 RF: 1 metoprolol succinate 100 mg Tablet Extended Release 24 Hr 100 mg PO DAILY RF: 0 ranitidine HCl [Zantac] 300 mg tablet 300 mg PO DAILY Qty: 30 RF: 0 omeprazole 40 mg capsule,delayed release(DR/EC) 40 mg PO BID Qty: 60 RF: 0 Lantus Solostar U-100 Insulin 100 unit/mL (3 mL) insulin pen 34 unit Sub-Q HS RF: 0 Discharge Instructions Instructions: Upper Respiratory Infection (ED) Additional Instructions: Encourage hydration. Please take medications as prescribed. Even if symptoms improve, please take the entire course of antibiotics. Please follow-up with your primary care for reevaluation next week. If you develop any fevers, weakness, difficulty breathing, shortness of breath or the new/worsening symptoms please seek care urgently once again. Referrals: Curtis Chavarria [Primary Care Provider] - Medical Decision Making Patient is a 74-year-old male with complex past medical history presenting today with chief complaint of URI x10 days. Seen by his primary care 1 week ago and was not able to tolerate the size of the Augmentin tablets. Denies fevers or chills. He had counts checked 3 days ago, the day prior to receiving Neupogen, white count was 14.9 with neutrophil count of 8.9. She reports that he received chemotherapy last 4 days ago. States the cough is been keeping him awake at night. He is chronically short of breath but associates this with his COPD, PVD and general poor health. No recent change in this. Denies any chest pain. On exam, patient appears chronically ill. He is cachectic and appears malnourished. Slightly tachycardic at 92, afebrile and appears acutely nontoxic. Does not appear to be in any respiratory distress. His lungs are clear bilaterally. Normal HEENT exam. I agree with the primary care's plan. Patient primarily came in for transition to liquid medication. We will transition him to liquid Augmentin. I encouraged close follow-up with primary care beginning of next week. He was given strict return precautions. At this point, I see no need for further evaluation for neutropenic fever as he is not actively neutropenic and is afebrile. I did consider this in my differential given his current chemotherapeutic treatment. All of his questions and concerns were addressed and he is in agreement this plan. HPI General Mode of arrival: ambulatory. Date/Time Provider Initiated Documentation: 07/24/19 16:30. Limitations to Documentation: no limitations. Information obtained by: patient, family () and RN notes reviewed. HPI Narrative: Patient is a 74-year-old male, accompanied by his , with history of CAD, COPD, gastric cancer with liver metastases, anemia, stroke, diabetes, PVD, CLL. Patient is currently undergoing chemotherapy was last treated on Saturday. Received Neupogen 2 days ago. Patient reports 10 days of cough, sore throat, nasal congestion. Reports is been bringing up yellow sputum. He was seen by his primary care 1 week ago at which time he was started on Augmentin. However, the patient reports that he was unable to take the Augmentin secondary to size the pill. He reports that the chemotherapy has made it difficult for him to small things and that he can often have discomfort doing so. Reports he is tried to cut up the pills but still has not had success to take the medication. Denies any fevers or chills. No GI upset. Continues to endorse cough with yellow sputum, nasal congestion and sore throat. No recent travel. No other recent antibiotics. Related Data Home Medications Medication Instructions Recorded Confirmed nitroglycerin 0.4 mg sublingual 0.4 mg SL ONCE #30 tab 09/08/18 07/24/19 tablet lancets #200 each 10/23/18 07/08/19 blood sugar diagnostic #100 each 11/07/18 07/08/19 blood-glucose meter #1 each 11/07/18 07/08/19 ferrous sulfate 325 mg (65 mg See Rx Instructions PO DAILY tab 01/13/19 07/24/19 iron) tablet multivitamin [Multiple Vitamins] 1 tab PO DAILY 02/04/19 07/24/19 sucralfate 1 g PO Q6H #120 tab 02/07/19 07/24/19 metoprolol succinate 100 mg PO DAILY 03/05/19 07/24/19 omeprazole 40 mg PO BID #60 cap 03/12/19 07/24/19 ranitidine HCl [Zantac] 300 mg PO DAILY #30 tab 03/12/19 07/24/19 sitagliptin 100 mg tablet 100 mg PO DAILY #30 tab 03/23/19 07/24/19 glipizide 5 mg tablet 5 mg PO BID PRN tab 04/01/19 07/24/19 pen needle, diabetic 31 gauge x #100 each 04/21/19 07/08/1912/20 prochlorperazine maleate 10 mg 10 mg PO DAILY PRN tab 06/23/19 07/24/19 tablet cholecalciferol (vitamin D3) 2,000 2,000 unit PO DAILY 07/08/19 07/24/19 unit capsule amoxicillin 875 mg-potassium 1 tab PO Q12H #14 tab 07/17/19 07/24/19 clavulanate 125 mg tablet Lantus Solostar U-100 Insulin 34 unit SUB-Q HS 07/24/19 07/24/19 amoxicillin-pot clavulanate 17.5 ml PO BID 7 Days #245 ml 07/24/19 [Augmentin] Previous Rx's Medication Instructions Recorded nitroglycerin 0.4 mg sublingual 0.4 mg SL ONCE #30 tab 09/08/18 tablet lancets #200 each 10/23/18 blood sugar diagnostic #100 each 11/07/18 blood-glucose meter #1 each 11/07/18 sucralfate 1 g PO Q6H #120 tab 02/07/19 omeprazole 40 mg PO BID #60 cap 03/12/19 ranitidine HCl [Zantac] 300 mg PO DAILY #30 tab 03/12/19 sitagliptin 100 mg tablet 100 mg PO DAILY #30 tab 03/23/19 pen needle, diabetic 31 gauge x #100 each 04/21/1912/20 amoxicillin 875 mg-potassium 1 tab PO Q12H #14 tab 07/17/19 clavulanate 125 mg tablet amoxicillin-pot clavulanate 17.5 ml PO BID 7 Days #245 ml 07/24/19 [Augmentin] Allergies Allergy/AdvReac Type Severity Reaction Status Date / Time No Known Allergies Allergy Verified 07/24/19 16:29 General Stated Complaint: RespSymp CORI: 3 Review of Systems Constitutional Constitutional: Reports as per HPI, Denies chills, Denies fever(s), Denies headache(s) and Reports poor appetite (Associates with chemo) Eyes Eyes: Reports as per HPI, Denies eye discharge and Denies irritation ENT Ears, Nose, Mouth, and Throat: Reports as per HPI and Denies headache(s) Cardiovascular Cardiovascular: Reports as per HPI, Denies chest pain, Denies dyspnea and Reports dyspnea on exertion (Chronic, unchanged) Respiratory Respiratory: Reports as per HPI, Reports cough, Denies hemoptysis, Denies pain on inspiration, Denies pain with cough, Denies dyspnea and Reports dyspnea on exertion (Chronic, unchanged) Gastrointestinal Gastrointestinal: Reports as per HPI, Denies abdominal pain, Denies change in bowel habits, Denies nausea and Denies vomiting Integumentary/Breasts Skin/Breast: Reports as per HPI and Denies rash Neurologic Neurologic: Reports as per HPI and Denies headache(s) [facility] Medical History Amputated toe of left foot (Acute) 2nd toe Anemia (Acute) Artificial cardiac pacemaker (Acute) pt. states he does not have a cardiac pacemaker. 03/06/19 B12 deficiency (Chronic) Bilateral carotid artery disease (Chronic) CAD (coronary artery disease) (Chronic) Chronic iron deficiency anemia (Acute) CLL (chronic lymphocytic leukemia) (Chronic 09/09/17) COPD (chronic obstructive pulmonary disease) (Chronic) pt. 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 Trying to get pt in for liver Bx. spoke w/ malia in [place] and Minda in [place]. CT films were reviewed and radioogist has approved bx. They can do the Bx on 02/27. He needs to be off asa.nsaids (which he should NOT be on at all, anyway) Susan will call and relate this info to the pt. Also referral made to [facility] in [facility] . The slides were pushed to them as well. pt has been doing well- hgb was 10.8 and pt was feeling good. He knows that if he is feeling week/dizzy to call for a hgb check and may require blood transfusion. Pt has high likelihood of bleeding from the tumor and we will transfuse to keep him feeling good/improve quality of life. Gastrointestinal hemorrhage (Acute 09/09/17) Hearing problem of both ears (Acute) History of trigger finger (Acute) right index finger trigger finger release Iron deficiency anemia (Chronic 09/09/17) Iron deficiency anemia due to chronic blood loss (Acute) Liver metastases (Acute) Micturition syncope (Chronic) Osteomyelitis of toe of left foot (Chronic) PVD (peripheral vascular disease) (Chronic 09/09/17) Stroke (Chronic) Type 2 diabetes mellitus with complication (Chronic 09/09/17) Unstable gait (Acute) Weight loss (Acute 09/09/17) Surgical History History of esophagogastroduodenoscopy (EGD) (Resolved 02/06/19) EGD w/ biopsy for evaluation of anemia & wt loss; found large fungating friable gastric mass in fundus at GE region 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 Social History Smoking/Tobacco Use Status: Current every day Tobacco Type: cigarettes Alcohol Intake: former Drug use: Never Substance use type: does not use Do you feel safe at home: Yes Do you feel safe in your relationship?: Yes Exam Const General: cooperative, comfortable, no acute distress, well developed, well groomed, frail appearing and ill appearing chronically Nutritional Appearance: cachectic, thin and underweight Orientation: alert and awake HENMT Head: normal to inspection, normocephalic and atraumatic Ears: hearing grossly normal bilaterally, external ears normal and TM's normal bilaterally General nose exam: external nose normal and nares normal Face and sinus: normal facial exam, sinuses nontender and face symmetric Mouth: oral mucosae normal, lip normal, tongue normal, oropharynx normal and moist mucous membranes Teeth and gingiva: dentition normal Throat: posterior oropharynx normal, tonsils normal and uvula midline Eyes General: appearance normal, both eyes and all related structures Neck Neck: normal visual inspection, full ROM, no lymphadenopathy and no meningeal signs Resp Effort & Inspection: normal respiratory effort, able to speak in complete sentences and no respiratory distress Auscultation: clear to auscultation bilaterally, no rales, no rhonchi and no wheezes Cardio Rate: regular rate Rhythm: regular rhythm Heart Sounds: S1 normal and S2 normal Skin General skin exam: no rashes or lesions noted Neuro General: alert and awake Cognition: normal cognition Speech: speech normal Gait: gait abnormal (unsteady, he reports this is chronic, begins PT in one week) Psych Appearance: grossly normal and well kempt Mental Status: mental status grossly normal Speech and Movement: speech and movement normal Course Vital Signs Vital signs: Vital Signs Temperature 36.7 C 07/24/19 16:22 Pulse 92 H 07/24/19 16:22 Respiratory Rate 20 07/24/19 16:22 Blood Pressure 112/82 07/24/19 16:22 Pulse Oximetry 96 07/24/19 16:22 Temperature 36.7 C 07/24/19 16:22 Temperature Source Temporal Artery Scan 07/24/19 16:22 Pulse 92 H 07/24/19 16:22 Respiratory Rate 20 07/24/19 16:22 Respiratory Effort 07/24/19 16:25 Respiratory Depth Deep 07/24/19 16:25 Blood Pressure 112/82 07/24/19 16:22 Blood Pressure Position Sitting 07/24/19 16:22 Pulse Oximetry 96 07/24/19 16:22 Oxygen Delivery Method Room Air 07/24/19 16:22 Oxygen Flow Rate 0 07/24/19 16:22 Pain Level 0 07/24/19 16:22
== END 2019-07-24 17:07 | disposition home or self-care (01) ==
PROVIDERS: Emergency Provider Physician Assistant; PCP Family Medicine
DX: J06.9 Acute upper respiratory infection, unspecified (principal); Z79.899 Other long term (current) drug therapy; J44.9 Chronic obstructive pulmonary disease, unspecified; E11.8 Type 2 diabetes mellitus with unspecified complications; Z79.4 Long term (current) use of insulin
CPT/HCPCS: 99283

== ENCOUNTER 2019-08-04 02:12 | Outpatient (RCR) | payer OTHER, MEDICARE, SELFPAY ==
[2019-07-21] MEDS: Normal Saline Flush 10 ML SYR IVP (08:00)
[2019-07-21 08:26] LABS: Abs Immature Grans 0.11 k/cumm (0.0-0.09); Absolute Basophil Count 0.03 k/cumm (0.0-0.2); Absolute Eosinophil Count 0.15 k/cumm (0.0-0.7); Absolute Monocyte Count 0.88 k/cumm (0.11-0.7); Basophils % 0.2; HCT 32.8 % (40.0-50.0); HGB 11.4 g/dL (13.5-17.5); Immature Grans % 0.7; Lymphocytes % 32.6; Mean Corp. HGB Concentration 34.8 g/dL (32.0-36.0); Mean Corpuscular Hemoglobin 33.3 pg (27.0-33.0); Mean Corpuscular Volume 95.9 fL (80-95); Mean Platelet Volume 9.3 fL (8.0-11.0); Monocytes % 5.9; Neutrophils % 59.6; Platelet Count 250 x1000/uL (130-400); RBC 3.42 m/cumm (4.50-6.00); RBC Distribution Width 14.8 % (11.8-14.1); White Blood Cell Count 14.99 k/cumm (4.4-10.8)
[2019-07-21 08:28] LABS: Absolute Lymphocyte Count 4.89 k/cumm (1.2-3.4); Absolute Neutrophil Count 8.93 k/cumm (1.2-6.7)
[2019-07-21 08:38] LABS: ALT 12 U/L (16-63); AST 17 U/L (15-37); Albumin 2.9 g/dL (3.4-5.0); Alkaline Phosphatase 163 U/L (46-116); Anion Gap 8.7 mmol/L (3-11); BUN 10 mg/dL (7-18); Bilirubin, Total 0.4 mg/dL (0.2-1.0); CO2 29.3 mmol/L (21.0-32.0); CREATININE 0.74 mg/dL (0.70-1.30); Chloride 103 mmol/L (98-107); Glucose 74 mg/dL (70-100); Potassium 3.3 mmol/L (3.5-5.1); Sodium 141 mmol/L (136-145); Total Protein 6.7 g/dL (6.4-8.2)
[2019-07-22 10:19] LABS: CEA 6.9 ng/ml
[2019-08-04] MEDS: Normal Saline Flush 10 ML SYR IVP (08:27)
[2019-08-04 08:34] LABS: Abs Immature Grans 0.29 k/cumm (0.0-0.09); Absolute Basophil Count 0.04 k/cumm (0.0-0.2); Absolute Eosinophil Count 0.08 k/cumm (0.0-0.7); Absolute Lymphocyte Count 3.53 k/cumm (1.2-3.4); Absolute Neutrophil Count 13.86 k/cumm (1.2-6.7); Basophils % 0.2; Eosinophils % 0.4; HCT 33.8 % (40.0-50.0); HGB 11.4 g/dL (13.5-17.5); Immature Grans % 1.5; Lymphocytes % 18.5; Mean Corp. HGB Concentration 33.7 g/dL (32.0-36.0); Mean Corpuscular Hemoglobin 32.8 pg (27.0-33.0); Mean Corpuscular Volume 97.1 fL (80-95); Mean Platelet Volume 9.4 fL (8.0-11.0); Monocytes % 6.7; Neutrophils % 72.7; Platelet Count 165 x1000/uL (130-400); RBC 3.48 m/cumm (4.50-6.00); RBC Distribution Width 15.5 % (11.8-14.1); White Blood Cell Count 19.07 k/cumm (4.4-10.8)
[2019-08-04 08:39] LABS: Absolute Monocyte Count 1.28 k/cumm (0.11-0.7)
[2019-08-04 08:47] LABS: ALT 17 U/L (16-63); AST 13 U/L (15-37); Albumin 3.1 g/dL (3.4-5.0); Alkaline Phosphatase 232 U/L (46-116); BUN 13 mg/dL (7-18); Bilirubin, Total 0.2 mg/dL (0.2-1.0); CREATININE 0.72 mg/dL (0.70-1.30); Calcium 9.2 mg/dL (8.5-10.1); Chloride 104 mmol/L (98-107); Glucose 119 mg/dL (70-100); Potassium 4.3 mmol/L (3.5-5.1); Sodium 140 mmol/L (136-145); Total Protein 6.7 g/dL (6.4-8.2)
[2019-08-04 09:01] LABS: Diff Comment Agrees w/ Instrument
[2019-08-04 09:05] LABS: Hemoglobin A1C 8.9 % (4.5-6.2)
[2019-08-05 10:43] LABS: CEA 7.6 ng/ml
== END 2019-08-06 23:59 | disposition home or self-care (01) ==
LOC: INF 02:12
PROVIDERS: PCP Family Medicine; Visit Provider Internal Medicine Hematology & Oncology
DX: C78.7 Secondary malignant neoplasm of liver and intrahepatic bile duct (principal); C16.1 Malignant neoplasm of fundus of stomach; Z45.2 Encounter for adjustment and management of vascular access device
CPT/HCPCS: 36591; 80053; 82378; 83036; 85025

== ENCOUNTER 2019-08-21 01:01 | Outpatient (CLI) | payer OTHER, MEDICARE, SELFPAY ==
--- NOTE | 2019-08-21 08:30 | DI.CT_ITS ---
EXAM: CT CHEST/ABD/PEL W CLINICAL HISTORY: GASTRIC CA WITH LIVER METS, ON CHEMO, RESTAGING EXAM,C16.9 TECHNIQUE: The exam was performed according to the usual protocol. COMPARISON: CT CHEST/ABD/PEL W from 05/21/2019 FINDINGS: CT scan of the chest: There is atherosclerosis of the thoracic aorta. The heart size is within normal limits. No pericardial effusion is present. Coronary artery calcifi cations are present. No significant thoracic adenopathy is present. No pleural effusion or pneumothorax is present. Emphysematous changes are present in the lungs. There is again seen a 3 millimeter nodule in the rig ht upper lobe. There has been no change in the 3 millimeter nodule in the lateral aspect of the left lower lobe. No new pulmonary nodules are present. There are findings of pulmonary fibrosis. The tracheobronchial tree is unremarkable. Degenerative changes are seen in the spine. Sternotomy wires are present. CT scan of the abdomen and pelvis: There has been no change in appearance of the liver compared to the prior examination. The portal, s uperior mesenteric and splenic veins are patent. The gallbladder is unremarkable. There is no biliary ductal dilatation. Spleen size appears stable. The adrenal glands are unremarkable. The kidneys and ureters are unrema rkable. There is unchanged wall thickening of the urinary bladder. Inflammatory or infectious process cannot be excluded. There is a large amount of stool throughout the colon suggesting constipation. No evidence of bowel obstruction. There is a normal appendix. The abdominal aorta is of normal caliber. No significant abdominal or pelvic adenopathy, ascites, or pneumoperitoneum is present. Degenerative changes are present in the spine IMPRESSION: 1. Stable pulmonary nodules. 2. No change in appearance of the liver compared to the prior examination. 3. Persistent urinary bladder wall thickening. This is nonspecific. This may reflect an inflammator y process versus bladder outlet obstruction.
[2019-08-21] MEDS: Omnipaque 350 MG/ML 50 ML BTL IJ (10:11)
[2019-08-21] MEDS: Breeza Beverage 473 ML BTL PO (10:12)
[2019-08-21] MEDS: Omnipaque 350 MG/ML 100 ML BTL IJ (10:13)
== END 2019-08-21 01:21 ==
PROVIDERS: PCP Family Medicine; Visit Provider Internal Medicine Hematology & Oncology
DX: C16.9 Malignant neoplasm of stomach, unspecified (principal); Z92.21 Personal history of antineoplastic chemotherapy; R91.8 Other nonspecific abnormal finding of lung field; I70.0 Atherosclerosis of aorta; J84.10 Pulmonary fibrosis, unspecified; K59.00 Constipation, unspecified; N32.89 Other specified disorders of bladder
CPT/HCPCS: 74177; 71260; J3490; Q9967

== ENCOUNTER 2019-08-27 02:38 | Outpatient (RCR) | payer OTHER, MEDICARE, SELFPAY ==
[2019-08-14] MEDS: Heparin 500 UNITS/5 ML SYRINGE (12:00)
[2019-08-14] MEDS: Normal Saline Flush 10 ML SYR 30 ML IVP (12:00)
[2019-08-14 12:26] LABS: HCT 30.2 % (40.0-50.0); HGB 10.6 g/dL (13.5-17.5); Mean Corp. HGB Concentration 35.1 g/dL (32.0-36.0); Mean Corpuscular Volume 94.1 fL (80-95); Mean Platelet Volume 10.1 fL (8.0-11.0); RBC 3.21 m/cumm (4.50-6.00); RBC Distribution Width 14.7 % (11.8-14.1); White Blood Cell Count 10.54 k/cumm (4.4-10.8)
[2019-08-14 12:48] LABS: Absolute Lymphocyte Count 3.16 k/cumm (1.2-3.4); Absolute Monocyte Count 0.84 k/cumm (0.11-0.7); Absolute Neutrophil Count 6.53 k/cumm (1.2-6.7); Platelet Count 114 x1000/uL (130-400)
[2019-08-14 12:49] LABS: Anisocytosis 1+; Diff Comment Manual Differential; Polychromasia Present
[2019-08-14 13:01] LABS: ALT 16 U/L (16-63); AST 12 U/L (15-37); Albumin 3.4 g/dL (3.4-5.0); Alkaline Phosphatase 265 U/L (46-116); BUN 15 mg/dL (7-18); Bilirubin, Total 0.3 mg/dL (0.2-1.0); CREATININE 0.76 mg/dL (0.70-1.30); Calcium 9.5 mg/dL (8.5-10.1); Chloride 102 mmol/L (98-107); Glucose 154 mg/dL (70-100); Potassium 3.7 mmol/L (3.5-5.1); Sodium 138 mmol/L (136-145); Total Protein 6.6 g/dL (6.4-8.2)
[2019-08-18 08:20] LABS: CEA 8.4 ng/mL (See Note)
[2019-08-21] MEDS: Normal Saline Flush 10 ML SYR IVP (10:24)
[2019-08-21] MEDS: Heparin 500 UNITS/5 ML SYRINGE IV (10:24)
[2019-08-27 12:30] LABS: Abs Immature Grans 0.14 k/cumm (0.0-0.09); Absolute Basophil Count 0.02 k/cumm (0.0-0.2); Absolute Lymphocyte Count 2.74 k/cumm (1.2-3.4); Absolute Neutrophil Count 16.52 k/cumm (1.2-6.7); Basophils % 0.1; Eosinophils % 0.5; HCT 30.5 % (40.0-50.0); HGB 10.3 g/dL (13.5-17.5); Immature Grans % 0.7; Lymphocytes % 13.1; Mean Corp. HGB Concentration 33.8 g/dL (32.0-36.0); Mean Corpuscular Hemoglobin 32.7 pg (27.0-33.0); Mean Corpuscular Volume 96.8 fL (80-95); Mean Platelet Volume 9.5 fL (8.0-11.0); Monocytes % 6.7; Neutrophils % 78.9; Platelet Count 147 x1000/uL (130-400); RBC 3.15 m/cumm (4.50-6.00); RBC Distribution Width 16.3 % (11.8-14.1); White Blood Cell Count 20.94 k/cumm (4.4-10.8)
[2019-08-27] MEDS: Normal Saline Flush 10 ML SYR 30 ML IVP (12:30)
[2019-08-27 12:45] LABS: ALT 17 U/L (16-63); AST 14 U/L (15-37); Albumin 3.3 g/dL (3.4-5.0); Alkaline Phosphatase 296 U/L (46-116); Anion Gap 5.7 mmol/L (3-11); BUN 19 mg/dL (7-18); Bilirubin, Total 0.2 mg/dL (0.2-1.0); CO2 29.3 mmol/L (21.0-32.0); CREATININE 0.74 mg/dL (0.70-1.30); Chloride 103 mmol/L (98-107); Glucose 120 mg/dL (74-106); Potassium 4.2 mmol/L (3.5-5.1); Sodium 138 mmol/L (136-145); Total Protein 6.5 g/dL (6.4-8.2)
[2019-08-28 09:36] LABS: CEA 7.1 ng/mL (See Note)
== END 2019-09-05 23:59 | disposition home or self-care (01) ==
LOC: INF 02:38
PROVIDERS: PCP Family Medicine; Visit Provider Internal Medicine Hematology & Oncology
DX: C16.1 Malignant neoplasm of fundus of stomach (principal); C78.7 Secondary malignant neoplasm of liver and intrahepatic bile duct; Z45.2 Encounter for adjustment and management of vascular access device
CPT/HCPCS: 36591; 80053; 96523; 82378; 85025

== ENCOUNTER 2019-10-05 01:00 | Outpatient (CLI) | payer OTHER, MEDICARE, SELFPAY ==
--- NOTE | 2019-10-05 10:38 | DI.CT_ITS ---
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 Mediastinum and Mary: Stable mediastinal adenopathy. Pulmonary parenchyma: Emphysematous changes are present in the lungs. New pulmonary nodules are pres ent. There are infiltrates seen in the lower lobes bilaterally not present on the prior examination. There is some degree of chronic pulmonary fibrosis within the lungs. Pleura: No effusion or pneumothorax. Aorta: Atherosclerosis. No aneurysm. Heart: No cardiomegaly or significant pericardial effusion. Coronary artery calcifications or stents . Bones: Degenerative changes. ABDOMEN: Liver: There has been interval increase in size of the hepatic masses compared to the prior examinati on. Mass in the lateral segment of the left lobe measures 2.0 cm. There is a hepatic mass adjacent to the right hepatic vein, which measures 1.8 centimeters. There are new hypodense lesions seen in t he caudal aspect of the liver. There has been interval increase in size of the inferior-most hepatic lesion, which now measures 2.2 centimeters. Portal, superior mesenteric and splenic veins are paten t. No measurable mass. Gallbladder and biliary tract: No radiodense calculus or dilation. Pancreas: Pancreatic atrophy. Calcifications are seen in the pancreas. This can be seen with chroni c pancreatitis. Spleen: Normal. Kidneys: Normal size, contour and axis. No radiodense stones or obstructive uropathy. No masses seen. Adrenal glands: No masses seen. Lymph nodes: Within normal limits. Aorta: Atherosclerosis. PELVIS: Bladder: There is again seen mild bladder wall thickening. Bowel: There is a large amount of stool seen throughout the colon. No evidence of bowel obstruction is seen. Normal appendix. Peritoneal cavity: No ascites, collection or mesenteric inflammatory response. Bones: Degenerative changes are present. Reproductive organs: Within normal limits. IMPRESSION: 1. Progressive hepatic metastatic disease. 2. Stable pulmonary nodules. 3. New bilateral basilar infiltrates. This may represent atelectasis or pneumonia. Metastatic disea se cannot be excluded. DATA REPOSITORY: All CT scans at this facility are submitted to the National Radiology Data Registry (NRDR) Dose Index Registry (DIR) with the [employer] (ACR). RADIATION OPTIMIZATION: All CT scans at this facility use at least one of these dose optimization te chniques: automated exposure control; mA and/or kV adjustment per patient size (includes targeted exa ms where dose is matched to clinical indication); or iterative reconstruction.
[2019-10-05] MEDS: Omnipaque 350 MG/ML 100 ML BTL IJ (10:42)
[2019-10-05] MEDS: Omnipaque 350 MG/ML 50 ML BTL PO (10:43)
[2019-10-05] MEDS: Breeza Beverage 473 ML BTL PO (10:43)
[2019-10-05] MEDS: Normal Saline Flush 10 ML SYR IVP (10:44)
== END 2019-10-05 01:20 ==
PROVIDERS: PCP Family Medicine; Visit Provider Internal Medicine Hematology & Oncology
DX: C16.1 Malignant neoplasm of fundus of stomach (principal); C78.7 Secondary malignant neoplasm of liver and intrahepatic bile duct; R91.8 Other nonspecific abnormal finding of lung field; R97.8 Other abnormal tumor markers; Z12.89 Encounter for screening for malignant neoplasm of other sites; Z92.21 Personal history of antineoplastic chemotherapy
CPT/HCPCS: 74177; 71260; J3490; Q9967

== ENCOUNTER 2019-10-05 01:10 | Outpatient (RCR) | payer OTHER, MEDICARE, SELFPAY ==
[2019-09-14] MEDS: Normal Saline Flush 10 ML SYR IVP (08:10)
[2019-09-14 08:44] LABS: Abs Immature Grans 0.02 k/cumm (0.0-0.09); Absolute Basophil Count 0.03 k/cumm (0.0-0.2); Absolute Eosinophil Count 0.15 k/cumm (0.0-0.7); Absolute Lymphocyte Count 1.45 k/cumm (1.2-3.4); Absolute Monocyte Count 0.58 k/cumm (0.11-0.7); Absolute Neutrophil Count 4.34 k/cumm (1.2-6.7); Basophils % 0.5; Eosinophils % 2.3; HCT 29.6 % (40.0-50.0); HGB 10.1 g/dL (13.5-17.5); Immature Grans % 0.3; Lymphocytes % 22.1; Mean Corp. HGB Concentration 34.1 g/dL (32.0-36.0); Mean Corpuscular Hemoglobin 33.3 pg (27.0-33.0); Mean Corpuscular Volume 97.7 fL (80-95); Mean Platelet Volume 8.9 fL (8.0-11.0); Monocytes % 8.8; Platelet Count 158 x1000/uL (130-400); RBC 3.03 m/cumm (4.50-6.00); White Blood Cell Count 6.57 k/cumm (4.4-10.8)
[2019-09-14 09:04] LABS: ALT 13 U/L (16-63); AST 17 U/L (15-37); Albumin 2.9 g/dL (3.4-5.0); Alkaline Phosphatase 143 U/L (46-116); BUN 15 mg/dL (7-18); Bilirubin, Total 0.4 mg/dL (0.2-1.0); Calcium 8.8 mg/dL (8.5-10.1); Chloride 103 mmol/L (98-107); Glucose 76 mg/dL (74-106); Potassium 3.7 mmol/L (3.5-5.1); Sodium 139 mmol/L (136-145)
[2019-09-15 10:00] LABS: CEA 15.5 ng/mL (See Note)
[2019-09-25] MEDS: Normal Saline Flush 10 ML SYR IVP (07:40)
[2019-09-25 08:02] LABS: Abs Immature Grans 0.03 k/cumm (0.0-0.09); Absolute Basophil Count 0.03 k/cumm (0.0-0.2); Absolute Eosinophil Count 0.29 k/cumm (0.0-0.7); Absolute Lymphocyte Count 2.68 k/cumm (1.2-3.4); Absolute Neutrophil Count 5.85 k/cumm (1.2-6.7); Basophils % 0.3; HCT 31.1 % (40.0-50.0); HGB 10.8 g/dL (13.5-17.5); Immature Grans % 0.3; Lymphocytes % 27.4; Mean Corp. HGB Concentration 34.7 g/dL (32.0-36.0); Mean Corpuscular Hemoglobin 33.6 pg (27.0-33.0); Mean Corpuscular Volume 96.9 fL (80-95); Mean Platelet Volume 8.5 fL (8.0-11.0); Monocytes % 9.2; Neutrophils % 59.8; Platelet Count 218 x1000/uL (130-400); RBC 3.21 m/cumm (4.50-6.00); White Blood Cell Count 9.78 k/cumm (4.4-10.8)
[2019-09-25 08:18] LABS: ALT 12 U/L (16-63); AST 14 U/L (15-37); Albumin 2.8 g/dL (3.4-5.0); Alkaline Phosphatase 118 U/L (46-116); Anion Gap 7.5 mmol/L (3-11); BUN 14 mg/dL (7-18); Bilirubin, Total 0.4 mg/dL (0.2-1.0); CO2 28.5 mmol/L (21.0-32.0); CREATININE 0.53 mg/dL (0.70-1.30); Chloride 104 mmol/L (98-107); Glucose 75 mg/dL (74-106); Potassium 3.5 mmol/L (3.5-5.1); Sodium 140 mmol/L (136-145); Total Protein 6.1 g/dL (6.4-8.2)
[2019-09-28 11:05] LABS: CEA 18.1 ng/mL (See Note)
[2019-10-05] MEDS: Heparin 500 UNITS/5 ML SYRINGE IV (07:26)
[2019-10-05] MEDS: Normal Saline Flush 10 ML SYR IVP (07:26)
== END 2019-10-06 23:59 | disposition home or self-care (01) ==
LOC: INF 01:10
PROVIDERS: PCP Family Medicine; Visit Provider Internal Medicine Hematology & Oncology
DX: C78.7 Secondary malignant neoplasm of liver and intrahepatic bile duct (principal); Z45.2 Encounter for adjustment and management of vascular access device
CPT/HCPCS: 36591; 80053; 96523; 82378; 85025

== ENCOUNTER 2019-10-15 03:57 | Observation (INO) | payer OTHER, SELFPAY ==
[2019-10-15] VITALS (25 sets, daily range): BP systolic 95–141; BP diastolic 46–65; PULSE 60–76; RESP 12–20; TEMP 37–37.8; O2SAT 83–100
--- NOTE | 2019-10-15 03:25 | W.ED.GENAD ---
Discharge Plan Disposition Patient Disposition: [facility] INPATIENT Condition: Good Discharge Details Chief Complaint: Chest Pain Clinical Impression: Chest pain Primary Care Provider: Curtis Chavarria ED Provider: Ashish Clayton Home Meds and New Rx's Prescriptions: No Action Lantus Solostar U-100 Insulin 100 unit/mL (3 mL) insulin pen 28 unit Sub-Q HS Qty: 15 RF: 3 nitroglycerin 0.4 mg tablet, sublingual 0.4 mg SL ONCE Qty: 30 RF: 0 Januvia 100 mg tablet 100 mg PO DAILY Qty: 30 RF: 11 cholecalciferol (vitamin D3) 2,000 unit capsule 2,000 unit PO DAILY RF: 0 prochlorperazine maleate 10 mg tablet 10 mg PO DAILY PRNRF: 0 sucralfate 100 mg/mL suspension 10 ml PO QID Qty: 1200 RF: 5 (DME) Aerochamber MV Spacer See Rx Instructions .ROUTE .MEDSUPPLY Qty: 1 RF: 0 albuterol sulfate [Ventolin HFA] 90 mcg/actuation HFA aerosol inhaler 1 - 2 puff IH Q4H PRN (Reason: shortness of breath or wheezing) Qty: 8.5 RF: 0 (DME) lancets [Accu-Chek Softclix Lancets] misc See Dose Instructions .ROUTE .MEDSUPPLY Qty: 200 RF: 4 (DME) FreeStyle Lite Strips strip See Dose Instructions .ROUTE .MEDSUPPLY Qty: 100 RF: 11 (DME) blood-glucose meter [FreeStyle [place] Lite] kit See Dose Instructions .ROUTE .MEDSUPPLY Qty: 1 RF: 0 (DME) pen needle, diabetic [Lite Touch Insulin Pen [place]] 31 gauge x 3/16 needle See Rx Instructions .ROUTE .MEDSUPPLY Qty: 100 RF: 3 glipizide 5 mg tablet 5 mg PO BID PRN (Reason: t-1 1700) RF: 0 ferrous sulfate 325 mg (65 mg iron) tablet See Rx Instructions PO DAILY RF: 0 multivitamin [Multiple Vitamins] Tablet 1 tab PO DAILY RF: 0 metoprolol succinate 100 mg Tablet Extended Release 24 Hr 100 mg PO DAILY RF: 0 omeprazole 40 mg capsule,delayed release(DR/EC) 40 mg PO BID Qty: 60 RF: 0 Medical Decision Making This is a 74-year-old male with a past medical history of CABG, diabetes, high cholesterol and regular tobacco abuse and chronic stable CLL as well as liver/stomach cancer for which she is actively receiving chemotherapy, who presents today for evaluation of chest pain. Patient states that 1 hour ago at 2:30 AM he developed what he describes as an epigastric achiness that then moved to the center of his chest. He took 2 nitroglycerin after which point he had complete resolution of his chest pain. He states that the symptoms feel identical to when he had his heart attack a few years ago. Currently he is asymptomatic and being brought in by EMS. Initial EKG and vitals were stable. Patient does admit to notable chills, but denies any other complaints at this time. Patient has no pleuritic pain, no tearing or ripping sensation and feels very well right now. Screening EKG at this time shows no evidence of STEMI. Portable limited bedside ultrasound demonstrates no evidence of global hypokinesis, pericardial effusion or tamponade. Differential at this time is highest for coronary spasm versus ACS versus reflux. Will give full dose aspirin, chest x-ray and cardiac work-up. Symptoms are inconsistent with pulmonary embolism with no pleuritic chest pain or shortness of breath, no calf tenderness. As well as the symptoms complete resolution with nitroglycerin. The patient's initial screening work-up is unremarkable I do feel that he would benefit from inpatient admission serial troponins and stress testing. 4:54 AM Patient's laboratory work-up is returned, vital signs remained stable, CBC is unchanged aside for small drop in his hemoglobin. Troponin is normal, proBNP slightly elevated at 840. Lipase normal. Chest x-ray unremarkable. Although the patient's pain is still 0, his clinical history and risk factors are high and concerning. I do feel that admission with serial troponins and stress test is indicated. I discussed the case with Dr. Andrade, he agrees with the assessment and plan. I have extensively reviewed the treatment plan with the patient. I have addressed all patient concerns at this time. I have also discussed the plan with the admitting physician and they agree with the current assessment and plan and have agreed to assume responsibility for the patient. All parties demonstrate verbal understanding and agreement with our assessment and plan at this time. EKG 3: 43 Rate 70, intervals normal, sinus rhythm, no significant ST elevations or depressions, no T wave inversions, no evidence of STEMI. Comparison with prior EKG on 03/18/2019 demonstrates increased flattening of T waves in comparison, but no other significant abnormalities. FINDINGS: Lungs: Unremarkable. No consolidation. Pleural space: Unremarkable. No pleural effusion. No pneumothorax. Heart/Mediastinum: Unremarkable. No cardiomegaly. Bones/joints: Status post median sternotomy. Other findings: Central infusion device unchanged in position. IMPRESSION: No acute findings. Thank you for allowing us to participate in the care of your patient. Dictated and Authenticated by: Dandy Ochoa DO 10/15/2019 4:22 AM Eastern Time ([place] & [place]) HPI General Date/Time Provider Initiated Documentation: 10/15/19 04:23. HPI Narrative: This is a 74-year-old male with a past medical history of CABG, diabetes, high cholesterol and regular tobacco abuse and chronic stable CLL as well as liver/stomach cancer for which she is actively receiving chemotherapy, who presents today for evaluation of chest pain. Patient states that 1 hour ago at 2:30 AM he developed what he describes as an epigastric achiness that then moved to the center of his chest. He took 2 nitroglycerin after which point he had complete resolution of his chest pain. He states that the symptoms feel identical to when he had his heart attack a few years ago. Currently he is asymptomatic and being brought in by EMS. Initial EKG and vitals were stable. Patient does admit to notable chills, but denies any other complaints at this time. No other modifying factors. No tearing or ripping sensation of the chest. No current chest heaviness, pleuritic chest pain, shortness of breath, abdominal pain, nausea or bandlike sensation. No other complaints at this time. No other modifying factors. Related Data Home Medications Medication Instructions Recorded Confirmed nitroglycerin 0.4 mg sublingual 0.4 mg SL ONCE #30 tab 09/08/18 10/15/19 tablet lancets #200 each 10/23/18 10/12/19 blood sugar diagnostic #100 each 11/07/18 10/12/19 blood-glucose meter #1 each 11/07/18 10/12/19 ferrous sulfate 325 mg (65 mg See Rx Instructions PO DAILY tab 01/13/19 10/15/19 iron) tablet multivitamin [Multiple Vitamins] 1 tab PO DAILY 02/04/19 10/15/19 metoprolol succinate 100 mg PO DAILY 03/05/19 10/15/19 omeprazole 40 mg PO BID #60 cap 03/12/19 10/15/19 sitagliptin 100 mg tablet 100 mg PO DAILY #30 tab 03/23/19 10/15/19 glipizide 5 mg tablet 5 mg PO BID PRN tab 04/01/19 10/15/19 pen needle, diabetic 31 gauge x #100 each 04/21/19 10/12/1912/20 prochlorperazine maleate 10 mg 10 mg PO DAILY PRN tab 06/23/19 10/15/19 tablet cholecalciferol (vitamin D3) 50 2,000 unit PO DAILY 07/08/19 10/15/19 mcg (2,000 unit) capsule albuterol sulfate 90 mcg/actuation 1 - 2 puff IH Q4H PRN #8.5 gm 07/27/19 10/15/19 aerosol inhaler inhalational spacing device #1 each 07/27/19 10/12/19 sucralfate 100 mg/mL oral 10 ml PO QID #1200 ml 07/27/19 10/15/19 suspension insulin glargine 100 unit/mL (3 28 unit SUB-Q HS #15 ml 10/13/19 10/15/19 mL) subcutaneous pen Previous Rx's Medication Instructions Recorded nitroglycerin 0.4 mg sublingual 0.4 mg SL ONCE #30 tab 09/08/18 tablet lancets #200 each 10/23/18 blood sugar diagnostic #100 each 11/07/18 blood-glucose meter #1 each 11/07/18 omeprazole 40 mg PO BID #60 cap 03/12/19 sitagliptin 100 mg tablet 100 mg PO DAILY #30 tab 03/23/19 pen needle, diabetic 31 gauge x #100 each 04/21/1912/20 albuterol sulfate 90 mcg/actuation 1 - 2 puff IH Q4H PRN #8.5 gm 07/27/19 aerosol inhaler inhalational spacing device #1 each 07/27/19 sucralfate 100 mg/mL oral 10 ml PO QID #1200 ml 07/27/19 suspension insulin glargine 100 unit/mL (3 28 unit SUB-Q HS #15 ml 10/13/19 mL) subcutaneous pen Allergies Allergy/AdvReac Type Severity Reaction Status Date / Time No Known Allergies Allergy Verified 10/15/19 03:40 General CORI: 3 Review of Systems All systems reviewed & are unremarkable except as noted in HPI and below PFSH Surgical History History of esophagogastroduodenoscopy (EGD) (Resolved 02/06/19) EGD w/ biopsy for evaluation of anemia & wt loss; found large fungating friable gastric mass in fundus at GE region Hx of CABG (Chronic) 2011 4 vessel bypass Social History Smoking/Tobacco Use Status: Current every day Tobacco Type: cigarettes Alcohol Intake: former Drug use: Never Substance use type: does not use Do you feel safe at home: Yes Do you feel safe in your relationship?: Yes Exam Narrative Exam Narrative: 1.Const: Thin and cachectic appearing 2.Eyes: PERRL, no conjunctival injection, and symmetrical lids. 3.ENT: Atraumatic external nose and ears. Moist MM. Neck: Symmetric, trachea midline, No thyromegaly. 4.CVS: +S1/S2, No murmurs or gallops. Peripheral pulses 2+ and equal in all extremities. Brisk capillary refill in all extremities. Radial pulses +2 bilaterally. 5.RESP: Unlabored respiratory effort. Clear to auscultation bilaterally. No wheezes rales or rhonchi 6.GI: Soft, Nontender/Nondistended, No hepatosplenomegaly. No guarding or rebound. 7.MSK: Normocephalic/Atraumatic, Extremities w/o deformity or ttp No cyanosis or clubbing, Normal movement of all extremities, no calf tenderness, no pitting edema. 8.Skin: Warm, Dry. No rashes or lesions. 9.Neuro: principal statistical programmer II-XII grossly intact. Sensation grossly intact, no focal neurologic deficits. 10.Psych: (AAO) x3. Appropriate mood and affect
[2019-10-15] MEDS: Aspirin 81 MG CHEW 324 MG CH (04:04)
--- NOTE | 2019-10-15 04:06 | DI.RAD_ITS ---
EXAM: XR PORTABLE CHEST AP CLINICAL HISTORY: central chest pain TECHNIQUE: COMPARISON: XR PORTABLE CHEST AP POST LINE from 03/06/2019 FINDINGS: Left Port-A-Cath noted in position. Multiple mediastinal vascular clips noted. Heart is not enlarge d. Lungs appear grossly clear. IMPRESSION: No evidence of acute process.
[2019-10-15 04:08] LABS: Lactate 1.2 mmol/L (0.6-1.4)
[2019-10-15 04:10] LABS: Abs Immature Grans 0.02 k/cumm (0.0-0.09); Absolute Basophil Count 0.02 k/cumm (0.0-0.2); Absolute Lymphocyte Count 1.75 k/cumm (1.2-3.4); Absolute Monocyte Count 0.16 k/cumm (0.11-0.7); Absolute Neutrophil Count 3.69 k/cumm (1.2-6.7); Basophils % 0.3; Eosinophils % 1.7; HCT 26.6 % (40.0-50.0); HGB 9.1 g/dL (13.5-17.5); Immature Grans % 0.3 %; Lymphocytes % 30.5; Mean Corp. HGB Concentration 34.2 g/dL (32.0-36.0); Mean Corpuscular Hemoglobin 33.2 pg (27.0-33.0); Mean Corpuscular Volume 97.1 fL (80-95); Mean Platelet Volume 8.7 fL (8.0-11.0); Monocytes % 2.8; Neutrophils % 64.4; Platelet Count 238 x1000/uL (130-400); RBC 2.74 m/cumm (4.50-6.00); White Blood Cell Count 5.74 k/cumm (4.4-10.8)
[2019-10-15 04:22] LABS: Lipase 57 U/L (73-393); PTT Activated 44.5 sec (21.0-31.4); Prothrombin Time 10.4 sec (9.3-11.0)
--- NOTE | 2019-10-15 04:23 | DI.VRAD_ITS ---
PROCEDURE INFORMATION: Exam: XR Chest, 1 View Exam date and time: 10/15/2019 3:42 AM Age: 74 years old Clinical indication: Chest pain; Other: Central; Prior surgery; Surgery date: 6+ months; Surgery type: Port, open heart TECHNIQUE: Imaging protocol: XR of the chest Views: 1 view. COMPARISON: CR XR PORTABLE CHEST AP POST LINE 03/06/2019 10:20 AM FINDINGS: Lungs: Unremarkable. No consolidation. Pleural space: Unremarkable. No pleural effusion. No pneumothorax. Heart/Mediastinum: Unremarkable. No cardiomegaly. Bones/joints: Status post median sternotomy. Other findings: Central infusion device unchanged in position. IMPRESSION: No acute findings. Dictated and Authenticated by: Dandy Ochoa MD. Ordering:MIKALA Hinojosa MD
[2019-10-15 04:33] LABS: ALT 8 U/L (16-63); AST 12 U/L (15-37); Albumin 2.3 g/dL (3.4-5.0); Alkaline Phosphatase 110 U/L (46-116); Anion Gap 6.6 mmol/L (3-11); BUN 21 mg/dL (7-18); Bilirubin, Total 0.5 mg/dL (0.2-1.0); CO2 31.4 mmol/L (21.0-32.0); CREATININE 0.49 mg/dL (0.70-1.30); Calcium 8.8 mg/dL (8.5-10.1); Chloride 100 mmol/L (98-107); Glucose 155 mg/dL (74-106); NT-proBNP 840 pg/mL (<300); Potassium 4.2 mmol/L (3.5-5.1); Sodium 138 mmol/L (136-145); Total Protein 5.5 g/dL (6.4-8.2); Troponin I < 0.05 ng/Ml (<0.06)
--- NOTE | 2019-10-15 05:08 | W.PM.HP.N ---
Date of service: 10/15/19 Time of Service: 05:08 Assessment and Plan Assessment and plan (1) Chest pain: Status: Acute Assessment and plan: Chest pain: I think GI source is more likely here, perhaps esophageal spasm, but cannot r/o cardiac at this point. Will trend troponins but give dose PPI now. Usual meds as is otherwise. I did review ADs with patient, he is somewhat indefinite and amorphous on his wishes, but in the end he seems to want Full Code. History of Present Illness History of Present Illness Chief Complaint: CP Narrative: 74 male with h/o CAD, s/p CABG, also recently diagnosed gastric adenocarcinoma metastatic to liver -- reports episode earlier this morning of epigastric discomfort which then developed into a tightness like a ball in chest, similar to prior ACS. Took first Motrin (w/o help) then NTG x 2, with resolution of pain. Total duration 45 minutes. In ER initial troponin negative, EKG has some minor TW flattening in V1-3. Admitted for further evaluation. Note that patient started unspecified chemo few days ago and was told to expect some GI upset. Review of Systems All systems reviewed & are unremarkable except as noted in HPI and below PFSH Medical History Amputated toe of left foot (Acute) 2nd toe Anemia (Acute) Artificial cardiac pacemaker (Acute) pt. states he does not have a cardiac pacemaker. 03/06/19 B12 deficiency (Chronic) Bilateral carotid artery disease (Chronic) CAD (coronary artery disease) (Chronic) Chronic iron deficiency anemia (Acute) CLL (chronic lymphocytic leukemia) (Chronic 09/09/17) COPD (chronic obstructive pulmonary disease) (Chronic) pt. 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 Trying to get pt in for liver Bx. spoke w/ malia in [place] and Minda in [place]. CT films were reviewed and radioogist has approved bx. They can do the Bx on 02/27. He needs to be off asa.nsaids (which he should NOT be on at all, anyway) Susan will call and relate this info to the pt. Also referral made to [facility] [place] [facility] in [facility] . The slides were pushed to them as well. pt has been doing well- hgb was 10.8 and pt was feeling good. He knows that if he is feeling week/dizzy to call for a hgb check and may require blood transfusion. Pt has high likelihood of bleeding from the tumor and we will transfuse to keep him feeling good/improve quality of life. Gastrointestinal hemorrhage (Acute 09/09/17) Hearing problem of both ears (Acute) History of trigger finger (Acute) right index finger trigger finger release Iron deficiency anemia (Chronic 09/09/17) Iron deficiency anemia due to chronic blood loss (Acute) Liver metastases (Acute) Micturition syncope (Chronic) Osteomyelitis of toe of left foot (Chronic) Port-A-Cath in place (Acute) PVD (peripheral vascular disease) (Chronic 09/09/17) Stroke (Chronic) Type 2 diabetes mellitus with complication (Chronic 09/09/17) Unstable gait (Acute) Weight loss (Acute 09/09/17) Surgical History History of esophagogastroduodenoscopy (EGD) (Resolved 02/06/19) EGD w/ biopsy for evaluation of anemia & wt loss; found large fungating friable gastric mass in fundus at GE region Hx of CABG (Chronic) 2011 4 vessel bypass Family History Other Diabetes Heart disease Social History Smoking/Tobacco Use Status: Current every day Tobacco Type: cigarettes Alcohol Intake: former Drug use: Never Substance use type: does not use Do you feel safe at home: Yes Do you feel safe in your relationship?: Yes Meds Home Medications and Allergies Home Medications Medication Instructions Recorded Confirmed Type nitroglycerin 0.4 mg sublingual 0.4 mg SL ONCE #30 tab 09/08/18 10/15/19 Rx tablet lancets #200 each 10/23/18 10/12/19 Rx blood sugar diagnostic #100 each 11/07/18 10/12/19 Rx blood-glucose meter #1 each 11/07/18 10/12/19 Rx ferrous sulfate 325 mg (65 mg See Rx Instructions PO DAILY tab 01/13/19 10/15/19 History iron) tablet multivitamin [Multiple Vitamins] 1 tab PO DAILY 02/04/19 10/15/19 History metoprolol succinate 100 mg PO DAILY 03/05/19 10/15/19 History omeprazole 40 mg PO BID #60 cap 03/12/19 10/15/19 Rx sitagliptin 100 mg tablet 100 mg PO DAILY #30 tab 03/23/19 10/15/19 Rx glipizide 5 mg tablet 5 mg PO BID PRN tab 04/01/19 10/15/19 History pen needle, diabetic 31 gauge x #100 each 04/21/19 10/12/19 Rx 12/20 prochlorperazine maleate 10 mg 10 mg PO DAILY PRN tab 06/23/19 10/15/19 History tablet cholecalciferol (vitamin D3) 50 2,000 unit PO DAILY 07/08/19 10/15/19 History mcg (2,000 unit) capsule albuterol sulfate 90 mcg/actuation 1 - 2 puff IH Q4H PRN #8.5 gm 07/27/19 10/15/19 Rx aerosol inhaler inhalational spacing device #1 each 07/27/19 10/12/19 Rx sucralfate 100 mg/mL oral 10 ml PO QID #1200 ml 07/27/19 10/15/19 Rx suspension insulin glargine 100 unit/mL (3 28 unit SUB-Q HS #15 ml 10/13/19 10/15/19 Rx mL) subcutaneous pen Allergies Allergy/AdvReac Type Severity Reaction Status Date / Time No Known Allergies Allergy Verified 10/15/19 03:40 Exam Narrative Exam Narrative: 113/55, 62, 20, 37,1. Looks chronicallt ill. HEENT ; neck supple; lungs clear; heart somewhat distant but RRR; abdomen soft NT, cannot appreciate any HSM; /rectal deferred; extremities w/o edema; neuro Ox3, moves all 4s. Results Labs Result diagrams: 10/15/19 03:50 10/15/19 03:50 Labs: Laboratory Results - last 24 hr 10/15/19 10/15/19 10/15/19 03:50 03:50 03:50 WBC 5.74 RBC 2.74 L Hgb 9.1 L Hct 26.6 L MCV 97.1 H MCH 33.2 H MCHC 34.2 RDW 15.0 H Plt Count 238 MPV 8.7 Immature Gran % 0.3 Neutrophils % 64.4 Lymphocytes % 30.5 Monocytes % 2.8 Eosinophils % 1.7 Basophils % 0.3 Absolute Neutrophils 3.69 Absolute Lymphocytes 1.75 Absolute Monocytes 0.16 Absolute Eosinophils 0.10 Absolute Basophils 0.02 PT INR APTT Sodium 138 Potassium 4.2 Chloride 100 Carbon Dioxide 31.4 Anion Gap 6.6 BUN 21 H Creatinine 0.49 L Estimated GFR/1.73 m2 >= 60.00 Glucose 155 H Lactate 1.2 Calcium 8.8 Total Bilirubin 0.5 AST 12 L ALT 8 L Alkaline Phosphatase 110 Troponin I < 0.05 NT-Pro-B Natriuret Pep 840 H Total Protein 5.5 L Albumin 2.3 L Lipase 10/15/19 10/15/19 03:50 03:50 WBC RBC Hgb Hct MCV MCH MCHC RDW Plt Count MPV Immature Gran % Neutrophils % Lymphocytes % Monocytes % Eosinophils % Basophils % Absolute Neutrophils Absolute Lymphocytes Absolute Monocytes Absolute Eosinophils Absolute Basophils PT 10.4 INR 1.0 APTT 44.5 H Sodium Potassium Chloride Carbon Dioxide Anion Gap BUN Creatinine Estimated GFR/1.73 m2 Glucose Lactate Calcium Total Bilirubin AST ALT Alkaline Phosphatase Troponin I NT-Pro-B Natriuret Pep Total Protein Albumin Lipase 57 Last Vital Signs Temp 37.1 C 10/15/19 03:36 Pulse 62 10/15/19 04:44 Resp 20 10/15/19 04:30 BP 113/53 L 10/15/19 04:44 Pulse Ox 100 10/15/19 04:44
[2019-10-15] MEDS: Pantoprazole 40 MG VIAL IVP (05:39)
[2019-10-15 07:39] LABS: Troponin I < 0.05 ng/Ml (<0.06)
[2019-10-15] MEDS: SITagliptin 100 MG TAB PO (09:31)
[2019-10-15] MEDS: Cholecalciferol (Vitamin D3) 1,000 UNIT TAB 2000 UNITS PO (09:31)
[2019-10-15] MEDS: Sucralfate 1 GM TAB PO ×2 (09:31→12:08)
[2019-10-15] MEDS: Multivitamin TAB 1 TAB PO (09:32)
[2019-10-15] MEDS: Omeprazole 20 MG CAPCR 40 MG PO (09:32)
[2019-10-15] MEDS: Ferrous Sulfate 325 MG TAB 162.5 MG PO (09:32)
[2019-10-15] MEDS: Metoprolol CR 100 MG TABCR PO (09:32)
--- NOTE | 2019-10-15 10:09 | INITIAL_ITS ---
- If Service Date Differs Date of service: 10/15/19 Time of Service: 10:09 Care Management Initial Assess REASON FOR HOSPITALIZATION:: Chest Pain PAST MEDICAL HISTORY/PAST SURGICAL HISTORY:: Medical History . Amputated toe of left foot (Acute). 2nd toe. Anemia (Acute). Artificial cardiac pacemaker (Acute). pt. states he does not have a cardiac pacemaker. 03/06/19. B12 deficiency (Chronic). Bilateral carotid artery disease (Chronic). CAD (coronary artery disease) (Chronic). Chronic iron deficiency anemia (Acute). CLL (chronic lymphocytic leukemia) (Chronic 09/09/17). COPD (chronic obstructive pulmonary disease) (Chronic). pt. states he does not have COPD, i've never been diagnosed with it, i don't take any medication for it 03.06.19. Counseling on health promotion and disease prevention (Acute). Diabetes mellitus (Chronic). Diabetic peripheral neuropathy (Chronic 09/09/17). Fever (Acute). Gastric malignant neoplasm (Acute). pt has lesion on CT consistent w/ mets. Trying to get pt in for liver Bx. spoke w/ malia in [place] and Minda in [place]. CT films were reviewed and radioogist has approved bx. They can do the Bx on 02/27. He needs to be off asa.nsaids (which he should NOT be on at all, anyway) Susan will call and relate this info to the pt. Also [place] [facility] [place] [facility] [place] [facility] . The slides were pushed to them as well. pt has been doing well- hgb was 10.8 and pt was feeling good. He knows that if he is feeling week/dizzy to call for a hgb check and may require blood transfusion. Pt has high likelihood of bleeding from the tumor and we will transfuse to keep him feeling good/improve quality of life. Gastrointestinal hemorrhage (Acute 09/09/17). Hearing problem of both ears (Acute). History of trigger finger (Acute). right index finger trigger finger release. Iron deficiency anemia (Chronic 09/09/17). Iron deficiency anemia due to chronic blood loss (Acute). Liver metastases (Acute). Micturition syncope (Chronic). Osteomyelitis of toe of left foot (Chronic). Port-A-Cath in place (Acute). PVD (peripheral vascular disease) (Chronic 09/09/17). Stroke (Chronic). Type 2 diabetes mellitus with complication (Chronic 09/09/17). Unstable gait (Acute). Weight loss (Acute 09/09/17). Surgical History . History of esophagogastroduodenoscopy (EGD) (Resolved 02/06/19). EGD w/ biopsy for evaluation of anemia & wt loss; found large fungating friable gastric mass in fundus at GE region. Hx of CABG (Chronic). 2011 4 vessel bypass ADVANCE DIRECTIVES:: On File. Domitila Alvarez HCA () CODE STATUS:: Full Code INSURANCE COVERAGE / FINANCIAL ISSUES:: Medicare/C&S Adminis [facility] PRIMARY CARE PHYSICIAN:: Curtis Boone POTENTIAL DISCHARGE NEEDS:: follow up with PCP and discharge plan of care PATIENT/FAMILY EDUCATION NEEDS:: Discharge plan, limitations, follow up plan, Ask Me Three TRANSPORTATION:: via private vehicle with family
--- NOTE | 2019-10-15 11:01 | DI.RAD_ITS ---
EXAM: XR FOOT RT COMPLETE CLINICAL HISTORY: hx DM, wound, r/o osteomyelitis TECHNIQUE: The exam was performed according to the usual protocol. COMPARISON: No exams were available for comparison FINDINGS: Three views were obtained. There is cortical irregularity of the distal phalanx of the great toe wit h question of bone resorption and cortical loss of the tip of the distal phalanx and the medial enriqueta x of the bone. On the lateral view there is question of an area of bony loss with central bone prese nt. In the reported clinical setting of suspected osteomyelitis, the findings would certainly be suspicio us for osteomyelitis. Additionally, some small erosions of the head of the 1st metatarsal are noted, osteomyelitis at this site not excluded. If clinically appropriate, additional evaluation with MRI of the foot would be suggested to evaluate the possibility of osteomyelitis.
[2019-10-15 11:31] LABS: C-Reactive Protein 2.17 mg/dL (0.0-0.3)
[2019-10-15 12:00] LABS: Troponin I < 0.05 ng/Ml (<0.06)
[2019-10-15] MEDS: Insulin Aspart 300 UNITS/3 ML PEN SC (12:08)
--- NOTE | 2019-10-15 13:29 | INITIAL_ITS ---
- If Service Date Differs Date of service: 10/15/19 Time of Service: 13:29 Care Management Initial Assess REASON FOR HOSPITALIZATION:: Chest Pain PAST MEDICAL HISTORY/PAST SURGICAL HISTORY:: Medical History . Amputated toe of left foot (Acute). 2nd toe. Anemia (Acute). Artificial cardiac pacemaker (Acute). pt. states he does not have a cardiac pacemaker. 03/06/19. B12 deficiency (Chronic). Bilateral carotid artery disease (Chronic). CAD (coronary artery disease) (Chronic). Chronic iron deficiency anemia (Acute). CLL (chronic lymphocytic leukemia) (Chronic 09/09/17). COPD (chronic obstructive pulmonary disease) (Chronic). pt. states he does not have COPD, i've never been diagnosed with it, i don't take any medication for it 03.06.19. Counseling on health promotion and disease prevention (Acute). Diabetes mellitus (Chronic). Diabetic peripheral neuropathy (Chronic 09/09/17). Fever (Acute). Gastric malignant neoplasm (Acute). pt has lesion on CT consistent w/ mets. Trying to get pt in for liver Bx. spoke w/ malia in [place] and Minda in [place]. CT films were reviewed and radioogist has approved bx. They can do the Bx on 02/27. He needs to be off asa.nsaids (which he should NOT be on at all, anyway) Susan will call and relate this info to the pt. Also referral made to [facility] [facility] [place] [facility] . The slides were pushed to them as well. pt has been doing well- hgb was 10.8 and pt was feeling good. He knows that if he is feeling week/dizzy to call for a hgb check and may require blood transfusion. Pt has high likelihood of bleeding from the tumor and we will transfuse to keep him feeling good/improve quality of life. Gastrointestinal hemorrhage (Acute 09/09/17). Hearing problem of both ears (Acute). History of trigger finger (Acute). right index finger trigger finger release. Iron deficiency anemia (Chronic 09/09/17). Iron deficiency anemia due to chronic blood loss (Acute). Liver metastases (Acute). Micturition syncope (Chronic). Osteomyelitis of toe of left foot (Chronic). Port-A-Cath in place (Acute). PVD (peripheral vascular disease) (Chronic 09/09/17). Stroke (Chronic). Type 2 diabetes mellitus with complication (Chronic 09/09/17). Unstable gait (Acute). Weight loss (Acute 09/09/17). Surgical History . History of esophagogastroduodenoscopy (EGD) (Resolved 02/06/19). EGD w/ biopsy for evaluation of anemia & wt loss; found large fungating friable gastric mass in fundus at GE region. Hx of CABG (Chronic). 2011 4 vessel bypass PREVIOUS FUNCTIONAL STATUS/SOCIAL/FAMILY SUPPORTS:: Ravi lives in [place] with his , Domitila, and their dog. 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 They have two adult children. He identified a daughter, Pushpa, as a support. He is independent at baseline. CURRENT FUNCTIONAL STATUS:: Ravi was lying in bed when CM met with him. He reported that he was going to be transferred to the [facility] for [facility]. Per provider, he needs to be seen by vascular immediately. He stated that his would be back soon and that he wants her to [facility]- he does not want to travel via ambulance. He stated that he is very comfortable receiving his care at the NH because they know him there. ADVANCE DIRECTIVES:: On File. Domitila Antonio [facility] () Has patient been provided with information about the portal?: No Did the patient sign up for the portal?: No CODE STATUS:: Full Code INSURANCE COVERAGE / FINANCIAL ISSUES:: Medicare/C&S Adminis [facility] CURRENT HOME/COMMUNITY SERVICES/EQUIPMENT:: Ravi is supported by the NH. PRIMARY CARE PHYSICIAN:: Curtis Boone POTENTIAL DISCHARGE NEEDS:: Evaluation for further needs, follow up appointments PATIENT/FAMILY EDUCATION NEEDS:: Review discharge plan, discussion of self care needs including Ask Me Three ANTICIPATED BARRIERS TO DISCHARGE:: None identified at this time. TRANSPORTATION:: Anticipate ravi will transport home with family via private vehicle. PLAN:: Anticipate Ravi will be transferred to a [facility] facility[facility], to see [facility]ascular for his right foot. His will drive him via private vehicle. CM will continue to follow.
--- NOTE | 2019-10-15 13:44 | WOUNDCARE ---
Great toe right foot. Necrotic, nail is very loose and ready to fall off. small to moderate exudate coming from underneath nail. Strong odor noted. Necrotic area measures2.2 X 3.9. skin is blanchable up to the area of the necrosis. Patient denies pain, stated he can feel touch at the site.Wound Care Report
--- NOTE | 2019-10-15 13:45 | WOUNDCARE ---
Wound Care Report Follow up to earlier note. Xray is clinically suspect for osteomylitis
--- NOTE | 2019-10-15 15:52 | PHARADMIT ---
Admission Pharmacy Clinical Review CHEST PAIN Code Status Full Code Current Weight 42.8 kg Renally Cleared and Narrow Therapeutic Index Meds CrCl~50ml/min QTc Value / Action Taken QTC 412 BP Control, Fever BP 121/51 Temp 37.8 Pain zero Electrolytes reviewed K+ 4.2 Na++ 138 DVT Prophylaxis NONE Opiate Usage / Scheduled Bowel Regimen Ordered none Plt/SCr for Heparin / Enoxaparin Plt 238 SCr 0.49 INR for Warfarin INR 1.0 H/H stable, WBC/Bands H/H 9.1/26.6 WBC 5.74 Antibiotic appropriateness none at this time Cultures and Sensitivities Blood pending Surgical ABX d/c within 24 hr DM control / Insulin Dosing BG 155, FSBS 343 @ lunch (Lantus/Novolog) Heart Failure (Check EF%) (REGLA's, B-Block, Diuretics) Toprol IV to PO Switch Home Meds Reviewed Home Meds Not Ordered Glipizide, Januvia, NTG sl Comments troponin negative x3 Probnp 840 History of falls-needs PT Wound and Podiatry consults Foot xray-possible Osteomyelitis He is a [facility] patient
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
[2019-10-15] MEDS: Heparin 500 UNITS/5 ML SYRINGE IVP (17:32)
--- NOTE | 2019-10-15 19:06 | PDOC.CMDIS ---
- If Service Date Differs Date of service: 10/15/19 Time of Service: 19:06 LACE Index Scoring Tool - Questions: Length of Stay (in days): 1 Acuity (Admit via E.D.?): Yes Comorbidities: Diabetes w/o Complication, Chronic Pulmonary Disease, Liver or Renal Disease E.D. Visits: 7 - Answers: Total Score: 13 Risk of Readmission: High Risk Care Management Discharge Reason for Hospitalization: Chest Pain Discharge Plan: Ravi's provider attempted to have [facility] by vascular as there was concern about a wound on his foot. Ravi was agreeable to be transferred to the [facility]. The [facility] was at capacity, therefore could not admit him today. The provider offered to consult podiatry as well as check with the [facility] tomorrow, but Tahir did not want to stay overnight. Ravi left AMA. His drove him home via private vehicle. Patient/Family Education Needs: Discussion of self care, health care goals and wishes.
--- NOTE | 2019-10-16 09:36 | PT.INNT ---
Date of service: 10/16/19 Time of Service: 09:36 PT Notes Visit Reasons: CHEST PAIN Referral for PT was received on 10/15/2018 at 10:39 AM. Patient was discharged to home on the same day at 16:36 PM.
== END 2019-10-15 17:38 | disposition left against medical advice (07) ==
LOC: ER 05:39 → MS 06:21
PROVIDERS: Nurse Practitioner; Admitting Provider General Practice; Emergency Provider Student in an Organized Health Care Education/Training Program; PCP Family Medicine; Visit Provider Internal Medicine
DX: R07.9 Chest pain, unspecified (principal); E11.69 Type 2 diabetes mellitus with other specified complication; M86.171 Other acute osteomyelitis, right ankle and foot; Z53.29 Procedure and treatment not carried out because of patient's decision for other reasons; E11.52 Type 2 diabetes mellitus with diabetic peripheral angiopathy with gangrene; I96 Gangrene, not elsewhere classified; C16.9 Malignant neoplasm of stomach, unspecified; C78.7 Secondary malignant neoplasm of liver and intrahepatic bile duct; J44.9 Chronic obstructive pulmonary disease, unspecified; I25.10 Atherosclerotic heart disease of native coronary artery without angina pectoris; I10 Essential (primary) hypertension; Z79.4 Long term (current) use of insulin; E11.42 Type 2 diabetes mellitus with diabetic polyneuropathy; Z45.2 Encounter for adjustment and management of vascular access device
CPT/HCPCS: 36591; 80053; 83690; 87040; 93005; 99217; 99222; 99285; 71045; 73630; 83605; 83880; 84484; 85025; 85610; 85730; 86140; 93010; 99235; G0378; J3490

== ENCOUNTER 2019-11-06 03:54 | Outpatient (RCR) | payer OTHER, MEDICARE, SELFPAY ==
[2019-10-09 07:39] LABS: Abs Immature Grans 0.02 k/cumm (0.0-0.09); Absolute Basophil Count 0.03 k/cumm (0.0-0.2); Absolute Eosinophil Count 0.23 k/cumm (0.0-0.7); Absolute Lymphocyte Count 1.38 k/cumm (1.2-3.4); Absolute Monocyte Count 0.74 k/cumm (0.11-0.7); Absolute Neutrophil Count 5.44 k/cumm (1.2-6.7); Basophils % 0.4; Eosinophils % 2.9; HCT 28.4 % (40.0-50.0); HGB 9.8 g/dL (13.5-17.5); Immature Grans % 0.3 %; Lymphocytes % 17.6; Mean Corp. HGB Concentration 34.5 g/dL (32.0-36.0); Mean Corpuscular Hemoglobin 33.6 pg (27.0-33.0); Mean Corpuscular Volume 97.3 fL (80-95); Monocytes % 9.4; Neutrophils % 69.4; Platelet Count 194 x1000/uL (130-400); RBC 2.92 m/cumm (4.50-6.00); RBC Distribution Width 15.8 % (11.8-14.1); White Blood Cell Count 7.84 k/cumm (4.4-10.8)
[2019-10-09] MEDS: Normal Saline Flush 10 ML SYR IVP (07:45)
[2019-10-09 07:55] LABS: Anisocytosis 1+; Diff Comment RBC Morph Reviewed
[2019-10-09 07:56] LABS: Polychromasia Present
[2019-10-09 07:58] LABS: ALT 9 U/L (16-63); AST 15 U/L (15-37); Albumin 2.5 g/dL (3.4-5.0); Alkaline Phosphatase 110 U/L (46-116); Anion Gap 5.1 mmol/L (3-11); BUN 11 mg/dL (7-18); Bilirubin, Total 0.5 mg/dL (0.2-1.0); CO2 28.9 mmol/L (21.0-32.0); Calcium 8.4 mg/dL (8.5-10.1); Chloride 103 mmol/L (98-107); Glucose 89 mg/dL (74-106); Potassium 3.9 mmol/L (3.5-5.1); Sodium 137 mmol/L (136-145); Total Protein 5.7 g/dL (6.4-8.2)
[2019-10-12 11:27] LABS: CEA 26.1 ng/mL (See Note)
[2019-11-06] MEDS: Normal Saline Flush 10 ML SYR IVP (14:30)
[2019-11-06] MEDS: Heparin 500 UNITS/5 ML SYRINGE IV (14:30)
[2019-11-06 15:08] LABS: Abs Immature Grans 0.04 k/cumm (0.0-0.09); Absolute Basophil Count 0.02 k/cumm (0.0-0.2); Absolute Eosinophil Count 0.08 k/cumm (0.0-0.7); Absolute Lymphocyte Count 2.46 k/cumm (1.2-3.4); Absolute Monocyte Count 0.68 k/cumm (0.11-0.7); Absolute Neutrophil Count 4.37 k/cumm (1.2-6.7); Basophils % 0.3; HCT 25.1 % (40.0-50.0); HGB 8.4 g/dL (13.5-17.5); Immature Grans % 0.5 %; Lymphocytes % 32.2; Mean Corp. HGB Concentration 33.5 g/dL (32.0-36.0); Mean Corpuscular Hemoglobin 31.7 pg (27.0-33.0); Mean Corpuscular Volume 94.7 fL (80-95); Mean Platelet Volume 8.7 fL (8.0-11.0); Monocytes % 8.9; Neutrophils % 57.1; Platelet Count 363 x1000/uL (130-400); RBC 2.65 m/cumm (4.50-6.00); RBC Distribution Width 15.1 % (11.8-14.1); White Blood Cell Count 7.65 k/cumm (4.4-10.8)
[2019-11-06 15:09] LABS: ALT 12 U/L (16-63); AST 15 U/L (15-37); Albumin 2.6 g/dL (3.4-5.0); Alkaline Phosphatase 129 U/L (46-116); Anion Gap 7.9 mmol/L (3-11); BUN 35 mg/dL (7-18); Bilirubin, Total 0.3 mg/dL (0.2-1.0); CO2 28.1 mmol/L (21.0-32.0); CREATININE 1.27 mg/dL (0.70-1.30); Calcium 8.7 mg/dL (8.5-10.1); Chloride 101 mmol/L (98-107); Estimated GFR 55.75 (mL/min/1.73m2); Glucose 241 mg/dL (74-106); Potassium 3.8 mmol/L (3.5-5.1); Sodium 137 mmol/L (136-145); Total Protein 6.3 g/dL (6.4-8.2)
== END 2019-11-06 23:59 | disposition home or self-care (01) ==
LOC: INF 03:54
PROVIDERS: PCP Family Medicine; Visit Provider Internal Medicine Hematology & Oncology
DX: C78.7 Secondary malignant neoplasm of liver and intrahepatic bile duct (principal); C16.1 Malignant neoplasm of fundus of stomach; Z45.2 Encounter for adjustment and management of vascular access device
CPT/HCPCS: 36591; 80053; 82378; 85025